=== PATIENT | female | born 1930 | race Caucasian/White ===

== ENCOUNTER 2017-12-23 14:24 | Observation (INO) ==
--- OUTSIDE RECORDS SUMMARY | 2017-12-23 16:07 | External Medical Summary ---
:1931 Author Organization e[employer] Care Team Providers Name Role Phone Bakari Prescott Provider Role Unavailable Allergies No Known Allergies Problems Problem Type Condition Code Onset Dates Condition Status Problem Hyperlipidemia, unspecified E78.5 Active Medications Medication Code System Code Instructions Start Date End Date Status Dosage Simvastatin [facility] [id number] 40 MG Orally Once 1 tablet in 5-10 a day the evening Results No Known Results Summary Purpose eClinicalWorks Submission
--- OUTSIDE RECORDS SUMMARY | 2017-12-23 16:07 | External Medical Summary ---
:1931 Author Organization [employer] Care Team Providers Name Role Phone Bakari Prescott Provider Role Unavailable Allergies No Known Allergies Problems Problem Type Condition Code Onset Dates Condition Status Problem Hyperlipidemia, unspecified E78.5 Active Medications No Known Medications Results No Known Results Summary Purpose eClinicalWorks Submission
--- OUTSIDE RECORDS SUMMARY | 2017-12-23 16:07 | External Medical Summary ---
:1930 Author Organization e[employer] Care Team Providers Name Role Phone Bakari Prescott Provider Role Unavailable Allergies No Known Allergies Problems Problem Type Condition Code Onset Dates Condition Status Problem Hyperlipidemia, unspecified E78.5 Active Problem Chronic obstructive pulmonary J44.9 Active disease, unspecified Medications Medication Code System Code Instructions Start Date End Date Status Dosage ProAir HFA [facility] [id number] 108 (90 Base) 2 puffs as 1-85 MCG/ACT needed Inhalation every 4 hrs Results No Known Results Summary Purpose eClinicalWorks Submission
--- NOTE | 2017-12-23 17:55 | Ultrasound Report ---
EXAM: US venous doppler LE BI HISTORY: bilateral lower extremity edema. COMPARISON: No prior studies available for comparison. Using duplex and color flow technology the deep venous system of the legs were evaluated throughout their length. No abnormal findings were demonstrated, specifically no intraluminal thrombus is seen. The deep venous system appears completely compressible throughout its length bilaterally. At the same time it shows the normal properties of spontaneous flow as well as augmentation. There is a Molina's cyst in the left popliteal fossa that measures 2.8 x 1.1 x 2.3 cm. IMPRESSION: 1. No duplex venous Doppler evidence of right or left lower extremity deep vein thrombosis. 2. Left popliteal fossa Omlina's cyst. .
[2017-12-23] MEDS ORDERED: --POM--Albuterol HFA 8 GM INHALER ORAL INH PRN (18:36)
--- NOTE | 2017-12-23 18:48 | History & Physical Report ---
History of Present Illness Date: 12/23/17 Chief complaint: falls, generalized weakness. HPI: patient is a pleasant 87yo female known to our clinic. 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 she is usually able to get herself up to go to the bathroom. she was in her usual state of health until about 1 to 2 weeks ago. at that time she started having an increase in generalized weakness. no focal weakness. it just became harder to support herself on her legs. she has had 3 falls over the last 10 days are so. they tend to follow the same pattern. she'll be getting up to go to the bathroom and her legs will feel weak. she'll slump and fall to the floor before being able to finish. she hasn't really impacted her head significantly. denies syncope, near-syncope, lightheadedness or other cardiac or neurologic symptoms as cause for this fall. she denies loss of consciousness. no residual head/ neck pain. no concussion or post-concussion symptoms. no new or changing numbness/tingling or focal weakness in any extremities or otherwise. no vision changes, ear pain, hearing changes, tinnitus, dizziness, orthostatic symptoms, syncope, near-syncope otherwise at all. no cranial nerve symptoms/deficits, dysphagia, aspiration. no blackouts. wasn't down for more than a couple seconds to couple minutes with each fall. she was seen in clinic today for this. her vital were stable and neurologic/musculoskeletal exam was non-acute. EKG in clinic today was effectively normal. they was no other focal medical cause from review of systems to explain her issues. she has residual mild to moderate pain over right anterior knee, right lower anterior cooper, some over the right lateral ankle and some over the superior foot as well but otherwise has no residual symptoms or issues from the fall other than as noted. no knee/ ankle/leg/foot swelling/redness or asymmetry bilaterally. she was admitted to [facility] for the falls and weakness under observation status. no fevers, chills, body aches, fatigue, ear pain, sinus pain, sore throat, runny nose. hasn't felt systemically unwell really. no vision changes, ear drainage, vertigo or tinnitus. no skin changes or new rashes. no fevers, chills, generalized body aches, chest pain, SOA, orthopnea, PND, new edema. she has chronic mild LE edema all the time but this isn't new and isn't acutely worse. no new or changing color changes to extremities from usual baseline. no palpitations, cough, sputum production, hemoptysis, unintentional weight loss , appetite changes, night sweats, constitutional symptoms, abdominal pain, GERD symptoms, nausea, vomiting, diarrhea, bloody/black stools, dysphagia, GI warning symptoms. patient denies homicidal/suicidal ideations. daughter does note that patient has been more irritable but patient/daughter both deny any other personality changes, mood changes, altered mentation, obtundation, confusion, changes in cognition. her short term memory isn't all that great per family but, per patient, this doesn't appear to be new or acutely worse. no dysuria, hematuria, urinary frequency, flank pain, nocturia, urinary/bowel incontinance, urinary retention. no photophobia, meningeal symptoms, encephalopathic symptoms as noted. no other boggy/inflammed/swollen focal joints or muscle groups. two daughters present for most of encounter today. no new issues otherwise at this time. Review of Systems - Constitutional Constitutional: Present: as per HPI - EENMT Eyes: Present: as per HPI Ears: Present: as per HPI Balance: Present: as per HPI Nose: Present: as per HPI Mouth/Throat: Present: as per HPI - Cardiovascular Cardiovascular: Present: as per HPI Vascular: Present: see HPI - Respiratory Respiratory: Present: as per HPI - Gastrointestinal Gastrointestinal: Present: as per HPI - Genitourinary Genitourinary: Present: as per HPI - Musculoskeletal Musculoskeletal: Present: as per HPI - Integumentary/Breasts Integumentary: Present: as per HPI - Neurological Neurological: Present: as per HPI - Psychiatric Psychiatric: Present: as per HPI - Endocrine Endocrine: Present: as per HPI - Hematologic/Lymphatic Hematologic/Lymphatic: Present: as per HPI - Allergic/Immunologic Allergic/Immunologic: Present: as per HPI Past Medical History Medical History Updates: -post-polio syndrome. -seasonal allergies. -frequent symptomatic PVC's. -COPD. -hyperlipidemia. -hypothyroid Surgical History: -thumb surgery. -breast surgery (not for cancer). -nose surgery. -appendectomy Family History: -mother and father both Family History Updates: see the above Family History: As Above - Social History Smoking status: Former smoker Social history: -former smoker but quit years ago. -no illicit substance use -no significant alcohol use -lives at home with daughter and she is her usual vocational services specialist. -retired. Medications Home Medications Medication Instructions Recorded Confirmed Type Albuterol HFA Inhaler [Ventolin 2 puff ORAL INH Q6H PRN 12/23/17 12/23/17 History Hfa 90 mcg/actuation] Flecainide [Tambocor] 50 mg PO Q12H 12/23/17 12/23/17 History Fluticasone/Salmeterol 250/50 1 puff INH BID PRN 12/23/17 12/23/17 History [Advair 250-50 Diskus] Levothyroxine Tab [Synthroid] 12.5 mcg PO ACB 12/23/17 12/23/17 History Simvastatin [Zocor] 40 mg PO HS 12/23/17 12/23/17 History Allergies Allergy/AdvReac Type Severity Reaction Status Date / Time rabbit dander Allergy Intermediate ALLERGIC Verified 12/23/17 16:46 CONTACT DERMATITIS aspirin AdvReac Intermediate VOMITING Verified 12/23/17 16:46 Mushrooms Allergy Intermediate HIVES Uncoded 12/23/17 16:46 Exam Vital Signs: Temperature 97.7 F 12/23/17 16:00 Pulse Rate 76 12/23/17 17:41 Respiratory Rate 16 12/23/17 16:00 Blood Pressure 126/49 12/23/17 16:00 Pulse Oximetry 91 12/23/17 16:00 Telemetry Rhythm: Sinus Rhythm (per EKG in clinic today. ) Height/Weight/BMI: Height 1.6 m Weight 50.3 kg Body Mass Index 19.6 - Constitutional Present: no acute distress, cooperative Comments: not combative, agitated, somnolent or obtunded either. - Routine HEENT Exam Head: Present: normocephalic, atraumatic Eye: Present: EOMI, PERRL ENT: Present: mucous membranes moist Comments: TM's clear b/l at this time. nares patent and avinash normal b/l at this time. no sinus pain to palpation b/l at this time. throat clear. no mastoid tenderness or skull/scalp tenderness b/l at this time. no clinical evidence of photophobia, encephalopathy, confusion, altered mentation, obtundation, delerium , psychosis, personality changes, meningitis at this time. affect and cognition unchanged from usual baseline. no nuchal rigidity. see the above and below. - Routine Neck Exam Present: supple Comments: no JVD. trachea midline. no lymphadenopathy in head/neck/supraclavicular area b/l at this time. see the above. - Routine Chest/Breast/Axilla Exam Comments: no chest wall tenderness at this time today. - Routine Respiratory Exam Comments: LCTAB. 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 moving air well. lung sounds heard in all lung cruz b/l at this time. no respiratory distress, retractions, accessory muscle use, stridor, airway compromise b/l at this time. - Routine Cardiovascular Exam Present: RRR Comments: no new murmurs. cardiac exam stable from previous. no new edema. legs are symmetrical and compartments soft b/l in LE's at this time. clinically no change in perfusion status in extremities X4 bilaterally. no boggy/inflammed/ swollen focal joints or muscle groups in extremities X4 and this includes knees/ ankles/feet bilaterally. no effusions in lower extremities joints, including knees bilaterally and no asymmetry either. right knee examined and stable to valgus/varus/anterior drawer/posterior drawer/compression/patella glide as compared to usual. mild palpable tenderness to pain over anterior aspect of knee/patella only. right ankle normal to anterior drawer/posterior/drawer/ inversion/eversion and achillies on right side in tact. mild pain over lower anterior tibia but no clinical evidence of compromise of syndesmosis between tibia/fibula on that side (right) to testing. mild foot pain over dorsal 3rd metatarsal. ROM right foot and toes at patient's usual baseline. perfusion status of RLE and foot stable from usual baseline as noted above. no step offs or deformities in RLE exam throughout at this time. pulses unchanged from usual baseline throughout RLE at this time. - Routine Abdominal Exam Present: soft, normoactive bowel sounds (X4.), non distended (X4.), non tender ( X4.) Comments: no rebound, guarding, rigidity. no ascites, jaundice or distension. - Routine Exam Comments: no tenderness over bladder areas. no clinical evidence of upper or lower UTI at this time. no new or changing back pain. - Routine Extremities Exam Comments: see above. - Routine Back/Spine/Pelvis Exam Comments: see the above. - Routine Skin Exam Present: intact Comments: no skin changes or issues from previous to uncovered areas. see the above. - Routine Neurological Exam Present: alert, oriented X3 CN2-12 as well as sensation/motor/muscle strength/DTR's unchanged from patient' s chronic and usual baseline b/l X4 extremities. pupillary exam unchanged from usual baseline as well. no clinical evidence of depression, anxiety, altered mentation, obtundation, confusion, encephalopathy, neck rigidity/pain, head pain , meningitis, photophobia, psychosis, delerium, personality changes at this time. denies homicidal/suicidal ideations. - Routine Psychiatric Exam Comments: see the above. Results - Labs CBC & Chem 7: 12/23/17 16:34 12/23/17 16:34 Assessment and Plan Assessment and Plan: generalized weakness and mechanical falls, likely secondary to post-polio syndrome and general debilitation. residual right lower leg, knee, ankle, foot pain from fall chronic venous insufficiency history of symptomatic PVC's HTN hyperlipidemia hypothyroid COPD -admit to outpatient/observation. start vitals with call parameters, oxygen as needed, telemetry, up with assist activity, cardiac diet, PT/OT/rehab consult. -cbc, cmp, tsh, UA, mg, phos, CK, troponin, BNP, urine culture now -cbc and cmp in the AM. -non contrast CT head, CXR, x-ray lower leg/ankle/foot on left, b/l LE venous dopplar u/s now. EKG in clinic as noted above in the HPI. -continue current synthroid, simvastatin, albuterol inhaler, advair BID inhaled, flecainide from home. -further management pending the above. all other chronic medical conditions stable and no other changes to plan of care at this time. ppx -hold on SCD's for now pending the above workup. if LE ultrasound/x-rays negative will start SCD's. given likely short length of stay on medical unit the use of pharmacologic DVT prophylaxis would likely yield more risk than benefit. if patient is to be here longer than expected then this is a consideration. -PO diet as above for GI prophylaxis. -FULL CODE. patient consulted on this today and she wants to be full code. -dispo heavily dependent on the above. DVT Prophylaxis: SCD's GI Prophylaxis: other (continue PO diet.) Resuscitation Status: Full Code - Time spent with patient Time with patient PN: 50 minutes Sepsis Assessment - Evaluation Severe Sepsis: none seen
[2017-12-23] MEDS ORDERED: DEXTROSE 50% SYRINGE 50ml (1 AMP) IVP PRN (18:49)
[2017-12-23] MEDS: FLECAINIDE 50 MG PO SCH (18:49)
[2017-12-23] MEDS ORDERED: GLUCOSE ORAL GEL 40% 37.5gm PO PRN (18:49)
[2017-12-23] MEDS ORDERED: INSULIN ASPART 100unit/ml INJECTION SQ PRN (18:49)
[2017-12-23] MEDS ORDERED: --POM--SIMVASTATIN 40 MG TABLET PO SCH (21:00)
[2017-12-23] MEDS ORDERED: NS 1,000 ML IV SCH (22:45)
[2017-12-24 00:05] VITALS: O2SAT 91
[2017-12-24] MEDS ORDERED: INHALER ASSIST DEVICE (Optichamber) MC ONE (04:24)
[2017-12-24] MEDS ORDERED: SALINE 0.65% NASAL SPRAY 44 ML BOTTLE EA NOSTRIL PRN (05:53)
[2017-12-24] MEDS: FLECAINIDE 50 MG PO SCH (06:12)
[2017-12-24] MEDS ORDERED: --POM--LEVOTHYROXINE 25 MCG TABLET PO SCH (06:30)
--- NOTE | 2017-12-24 09:35 | XRay Report ---
Indication: weakness PROCEDURE: XR chest 1V: Encounter: Initial Comparison: None. Findings: There is severe S-shaped scoliosis which is dextroconvex in the mid to lower thoracic spine. Heart size is normal. The lungs are clear. There is no focal opacity to suggest atelectasis or pneumonia. No mediastinal or hilar adenopathy. No pleural effusion. There is no significant tortuosity of the descending thoracic aorta. There is mild degenerative disc disease of the thoracic spine. IMPRESSION: No acute process. .
--- NOTE | 2017-12-24 09:36 | XRay Report ---
Indication: pain PROCEDURE: XR foot RT min 3V: Encounter: Initial Comparison: None. Findings: There is moderate osteophyte process of the foot with moderate diffuse cortical thinning. There are hammertoe deformities of the digits. The alignment appears otherwise well preserved. There is no definite periosteal reaction or bony lesion. There is no focal soft tissue swelling. There is no clear displaced fracture or bony destructive process. No dislocation or subluxation. No radiopaque foreign body. IMPRESSION: No definite bony destructive process. Nondisplaced fractures, not detectable on initial exams may become detectable after 7 to 10 days. A followup exam, MRI, or CT cross-sectional imaging might be a benefit if symptoms persist. .
--- NOTE | 2017-12-24 09:37 | XRay Report ---
Indication: pain PROCEDURE: XR ankle RT min 3V: Encounter: Initial Comparison: None. Findings: There is moderate diffuse cortical thinning compatible with osteoporosis. The alignment appears well preserved. There is no definite periosteal reaction or bony lesion. There is no focal soft tissue swelling. There is no clear displaced fracture or bony destructive process. No dislocation or subluxation. No radiopaque foreign body. IMPRESSION: No definite bony destructive process. .
--- NOTE | 2017-12-24 09:38 | XRay Report ---
Indication: pain, falls. PROCEDURE: XR tib/fib RT 2V: Encounter: Initial Comparison: None. Findings: There is moderate diffuse cortical thinning compatible with osteoporosis. The alignment appears well preserved. There is no definite periosteal reaction or bony lesion. There is no focal soft tissue swelling. There is no clear displaced fracture or bony destructive process. No dislocation or subluxation. No radiopaque foreign body. IMPRESSION: No definite bony destructive process. .
--- NOTE | 2017-12-24 09:39 | CT Scan Report ---
Indication: falls, PROCEDURE: CT head/brain wo con: Encounter: Initial Comparison: None. Findings: There is mild prominence of the ventricles and sulci compatible with cortical atrophy. There is no mass, mass effect, or midline shift. No evidence for intracranial hemorrhage. No intra or extra-axial fluid collections. No evidence for depressed skull fracture. The included portions of the sinuses are clear. IMPRESSION: Mild cortical atrophy. No evidence for acute cortical infarct, intracranial hemorrhage, or mass. .
--- NOTE | 2017-12-24 12:02 | XRay Report ---
Indication: knee pain. PROCEDURE: XR knee RT 3V: Encounter: Initial Comparison: None. Findings: Moderate osteopenia with cortical thinning. 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 The patella appears slightly elongated on the lateral view probably reform spurring. There is no definite effusion. There is no definite periosteal reaction or bony lesion. There is no focal soft tissue swelling. There is no clear displaced fracture or bony destructive process. No dislocation or subluxation. No radiopaque foreign body. IMPRESSION: No definite bony destructive process. .
--- NOTE | 2017-12-24 12:28 | Progress Note ---
- Date 12/24/17 Subjective: no acute issues overnight. no events called on telemetry. patient doing about the same. no acute issues. no changes in generalized weakness from admission. she's had no acute events overnight. no falls, trauma, injuries. no headaches, vision changes, ear pain, sinus pain, sore throat, runny nose. no dizziness, syncope, near-syncope. no skin changes or new rashes. no new or changing numbness/weakness/tingling in extremities b/l X4. right sided knee, cooper, ankle, foot pain unchanged from admission in pattern and distribution from previous. no new boggy/inflammed/swollen/painful focal joints or muscle groups. no hearing changes, cranial nerve symptoms, aspiration, dysphagia. appetite is ok. no night sweats. O2 sats dropped last night as noted and required some oxygen but she had no symptoms through this and this may be chronic. no focal neurologic deficits, seizure symptoms. no altered mentation , obtundation, confusion, depression symptoms, anxiety, manic symptoms, psychotic symptoms. no chest pain, SOA, orthopnea, PND, new edema, leg asymmetry, changes in exertional tolerance, palpitations, cough, sputum production, hemoptysis. no abdominal pain, GERD symptoms, nausea, vomiting, diarrhea, constipation, bloody/black stools, dysphagia, GI warning symptoms. no BM since admission but she's only been here overnight. no dysuria, hematuria , urinary frequency, flank pain, nocturia, urinary/bowel incontinance, urinary retention. no new issues otherwise at this time. Objective Vital signs: Temperature 98.7 F 12/24/17 08:00 Pulse Rate 65 12/24/17 08:00 Respiratory Rate 22 12/24/17 08:00 Blood Pressure 146/69 H 12/24/17 08:00 Pulse Oximetry 91 12/24/17 08:06 Rhythm: Normal Sinus Rhythm Height/Weight/BMI: Height 1.6 m Weight 51 kg Body Mass Index 19.6 - Constitutional Present: no acute distress, cooperative. Absent: diaphoretic, disheveled, combative, agitated, somnolent, obtunded - Routine HEENT Exam Head: Present: normocephalic, atraumatic Eye: Absent: periorbital swelling ENT: Present: mucous membranes moist Comments: patient does have mild left eyelid droop which is noted today. otherwise no changes from previous baseline. - Routine Respiratory Exam Present: CTA bilaterally. Absent: accessory muscle use, patient mechanically ventilated, dyspnea, decreased breath sounds, prolonged expiratory phase, rales , respiratory distress, rhonchi, stridor, wheezes, crackles, distant breath sounds, diminished air movement (as compared to usual baseline. ) Comments: lung sounds heard in all lung cruz b/l at this time. no respiratory distress , retractions, airway compromise, stridor b/l at this time. - Routine Cardiovascular Exam Present: RRR Comments: no new murmurs. no changes from previous to cardiac exam at this time. no new edema in LE's b/l at this time. legs symmetrical and compartments soft b/l in LE's at this time. clinically well perfused in all 4 extremities b/l at this time. no changes of patient's usual baseline perfusion status in extremities b/ l X4. no new or changing boggy/inflammed/swollen/painful joints or muscle groups from previous. no new asymmetry or swelling in lower extremity joints bilaterally. no changes in distribution of pain from last visit in right lower extremity from yesterday's exam. 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 - Routine Abdominal Exam Present: soft (X4.), normoactive bowel sounds (X4.), non distended (X4.), non tender (X4.). Absent: tenderness (X4.), distended (X4.), rebound, guarding, firm, rigid, organomegaly Comments: no ascites, jaundice, distension at this time. - Routine Exam Comments: no clinical evidence of upper or lower UTI at this time. - Routine Extremities Exam Comments: see the above. - Routine Back/Spine/Pelvis Exam Comments: see the above also. - Routine Skin Exam Present: intact Comments: no skin changes or issues as compared to usual baseline. - Routine Neurological Exam Present: alert, oriented X3 cranial nerves unchanged from previous baseline. sensation/motor/muscle strength/DTR's unchanged from usual baseline in extremities bilaterally X4. no clinical evidence of depression, anxiety, altered mentation, obtundation, confusion, psychosis, delerium, paloma, encephalopathy, photophobia, meningitis at this time. no changes from previous baseline. - Routine Lymphatic Exam Lymphatic: Absent: lymphedema - Routine Psychiatric Exam Present: normal affect, normal thought process (for patient.), cooperative. Absent: auditory hallucinations, visual hallucinations, tactile hallucinations, agitated, paranoid Comments: see the above. 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 residual right lower leg, knee, ankle, foot contusions from falls. group C strep lower urinary tract infection mild clinical dehydration, resolved. eyelid droop non-specific elevation in fasting blood sugar mild night-time hypoxia, possibly chronic. chronic venous insufficiency history of symptomatic PVC's HTN hyperlipidemia hypothyroid COPD -continue outpatient/observation, vitals with call parameters, oxygen as needed, telemetry. make activity up with assist. continue cardiac diet, PT/OT/ rehab consult. patient clinically stable. overnight oximetry tonight. given patient's weakness and falls, we will treat the above as a UTI. -cbc's unremarkable. cmp's with sugar of 218 on admission and otherwise unremarkable. sugars and GLUBS otherwise in low 100's. TSH normal as are mg and phos. CK, troponin unremarkable. UA generally unremarkable but following urine culture. CT head, x-rays of right leg, CXR unremarkable. did x -ray right knee also and this was unremarkable. b/l LE venous dopplar u/s unremarkable also. CRP normal from yesterday. see previous notes from this stay for other testing and results. -urine culture pending. -cbc, cmp, myasthaniafollowing GLUBS as well. -continue current synthroid, simvastatin, albuterol inhaler, advair BID inhaled, flecainide from home. was on NS at 40ml/hr but have discontinued now as patient euvolemic at this time. continue novolog s/s and hypoglycemia protocol as well. start keflex PO. -further management pending the above. all other chronic medical conditions stable and no other changes to plan of care at this time. ppx -SCD's started for DVT ppx. given likely short length of stay any pharmacologic DVT prophylaxis would likely hold more risk than benefits. this may change if patient is to be here longer. -continue PO diet as above for GI prophylaxis. -FULL CODE. -dispo awaiting PT/OT/rehab team input. patient likely would make a strong candidate for inpatient rehab. if not we will see what skilled care can offer. DVT Prophylaxis: SCD's GI Prophylaxis: other (PO diet.) Resuscitation Status: Full Code - Time spent with patient Time with patient PN: 25 minutes Sepsis Assessment - Evaluation Severe Sepsis: none seen
[2017-12-24 13:40] VITALS: BMI 19.9
[2017-12-24 15:54] VITALS: BP 148/66; PULSE 70; RESP 20; TEMP 98.6
--- NOTE | 2017-12-25 09:04 | Discharge Summary ---
ATTENDING PHYSICIAN Dr. Prescott of [facility] ADMITTING PHYSICIAN Dr. Prescott of [facility] CONSULTING PROVIDERS None ANCILLARY SERVICES The rehab unit was consulted as were physical therapy and occupational therapy. Patient is discharged to Inpatient Rehab Unit at [facility] in stable and good condition. DISCHARGE MEDICATIONS 1. Albuterol HFA inhaler, 90 mcg, two puffs orally inhaled q.6h. p.r.n. shortness of air. 2. Keflex 500 mg p.o. q.12h. 3. D50W 10-20 mL IV as needed for low blood sugars. Please see protocol for further instructions. 4. Flecainide 50 mg p.o. q.12h. 5. Advair 250/50, one puff inhaled b.i.d. 6. Glucose oral gel 40%, 37.5 g orally as needed for low blood sugars. Please see protocol for further instructions. 7. NovoLog sliding scale at low dose. Please see protocol for further instructions. 8. Synthroid 12.5 mcg p.o. daily. 9. Simvastatin 40 mg p.o. q.h.s. 10. Nasal saline spray, 2 sprays each nostril every 6 hours as needed for congestion. DISCHARGE DIET ADA ([employer]) and cardiac diet. ACTIVITY Up with assist only. PAIN Patient is told if any new pain or issues occur she will let us know right away. WOUND CARE Patient instructed that if any of her IV sites become red, swollen, painful then she will let us know right away. ADDITIONAL INSTRUCTIONS 1. To nursing. Nursing is given expressed orders to please discontinue all lines, IVs and telemetry the patient didn't come in on before discharge. They were instructed to call Dr. Thornton of the rehab team to see if he wants to keep these before doing this. 2. Patient was told that if any issues worsen and/or new ones occur, she would be seen immediately. 3. I did recommend to the rehab unit that they consult me on the rehab side for medical management. EXPECTED SIGNS/SYMPTOMS Patient was told that the generalized weakness should improve. NOTIFY PHYSICIAN/RETURN TO CARE ORDERS 1. Patient instructed to return to care immediately if any weakness and/or falls occur. 2. Numbers were given to contact Dr. Prescott after and during business hours. 3. Any pending labs will be followed up with provider. 4. [employer] phone line. This is not applicable as the patient does not use tobacco products. FOLLOWUP 1. The patient will follow up with Dr. Prescott as per discharge from the Inpatient Rehab Unit. This has yet to be determined. PERTINENT VITAL SIGNS DURING THIS STAY The patient did have a have a brief episode of oxygen saturations dropping into the 80s overnight and at sleep. This came up with 2 liters of oxygen. She was on room air the rest of the time while here. This was asymptomatic. Otherwise the patient was afebrile. Telemetry was normal sinus rhythm and generally unremarkable with normal rates. Respirations were normal and blood pressures were generally nonacute. PHYSICAL EXAM FINDINGS WHILE HERE The patient has a mild left eyelid droop but no other evidence from history or physical exam of an obvious neuromuscular junction disorder. Her lung exam was normal and she is expanding air well. Her neurological exam to cranial nerves and in extremities bilaterally x4 are generally at her baseline. She has no focal deficits. Her cognition is at her usual baseline. Cardiovascular exam is stable as well and at her usual baseline. PERTINENT LABORATORY DONE DURING THE STAY The patient had two complete CBCs while here, both of which were generally normal. As far as the chemistry goes, the patient's sodiums, potassiums and chlorides were normal while here. The patient's carbon dioxide was 35-36 which is chronic from her chronic COPD. Kidney function was unremarkable while here. This was generally normal. Blood sugar on admission was 218. It was generally in the low 100s for the rest of her stay. Liver functions tests were normal throughout. Magnesium, phosphorus , calcium were normal while here. Troponin and C-reactive protein on admission were normal as was the patient's brain natriuretic peptide. TSH was normal on admission. Serum protein studies on her complete metabolic panel were unremarkable on admission as well. Urinalysis on admission was notable for some leukocyte esterase, white blood cells and some bacteria. Urine culture did grow out Group C Streptococcus which in some cases can be an infecting pathogen and was thus treated with Keflex. PERTINENT IMAGING WHILE HERE 1. The patient did have an EKG done in the clinic on the day of admission which was effectively normal. 2. The patient had right knee, tibia, fibula, foot, ankle x-rays this stay which were unremarkable. 3. Patient's CT of the head without contrast on admission was normal. 4. Chest x-ray done on admission was nonacute and generally unremarkable. 5. Bilateral venous Doppler ultrasound was unremarkable and without evidence of a blood clot on admission. DISCHARGE DIAGNOSES 1. 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 2. Residual right lower leg, knee, ankle, foot contusions from falls. 3. Group C strep lower urinary tract infection. 4. Mild clinical dehydration which is resolved. 5. Left eyelid droop. 6. Nonspecific elevation in fasting blood sugar. 7. Mild nighttime hypoxemia, this is possibly chronic. 8. Chronic venous insufficiency. 9. History of symptomatic preventricular contractions. 10. Seasonal allergies. 11. Hypothyroidism. 12. COPD with restrictive lung disease on top of this from the patient's postpolio syndrome and chronic kyphosis. HISTORY OF PRESENT ILLNESS AND HOSPITAL COURSE This is a pleasant 87-year-old female known to our clinic. She is generally wheelchair-bound and has a history of postpolio syndrome. She is usually able to get herself up to the bathroom but this changed starting about 1-2 weeks previous to admission. At that time she started having an increase in generalized weakness but this was most pronounced in the proximal lower extremities in the quadriceps compartment. She just felt like her legs would not hold her up. She had had upwards of three falls over the 10 days previous to admission which tended to follow a similar pattern. She would be trying to get up and go to the bathroom. Her legs would feel weak and they would give out from under her. She didn't impact her head altogether too significantly. She denied syncope, near syncope, lightheadedness, other cardiac symptoms, neurologic symptoms as the cause of the fall. This appeared to be purely mechanical. She denied any loss of consciousness or residual head/neck pain. The only residual pain and discomfort were in the right lower extremity, most specifically the right knee, cooper, ankle, foot. Please see the admission history and physical as well as progress notes for further details on this. There were no issues from an orthopedic, neurovascular or musculoskeletal standpoint in the right lower extremity or residual from this fall otherwise. The patient was otherwise without any issue from this fall. She was seen in clinic on the day of admission and it was opted to admit her for observation. Please see above for the extensive imaging and laboratory evaluation undertaken as is noted above. The patient did have what appears to be something of a urinary tract infection and this has been treated with Keflex. It is a little too early to see if this has improved anything thus far but we will monitor. Physical therapy, occupational therapy and the rehab team were consulted and the patient was accepted to the Inpatient Rehab Unit on 12/24/2017. She was clinically stable throughout her couple of days on the acute side. Her weakness had yet to improve but had not worsened. She was otherwise neurologically and musculoskeletally intact. It was noted that she has something of a mild left eyelid droop without any other ocular issues or findings. She says she has had this on and off before at various times. As noted her other neurologic exams were unremarkable, but we will be working up as we go forward for a neuromuscular junction issue. Currently the patient is stable as she makes her way to the Inpatient Rehab side. The likely cause of the patient's issues are a gradual general debilitation on top of her chronic postpolio syndrome. We will await the workup as noted, though. In regards to the patient's recent residual right lower extremity pain from the fall, x-rays were unremarkable. There was no swelling or asymmetry or decrease in function/range of motion from this. We will continue to monitor this and she will work with physical therapy as noted above. The patient was mildly dehydrated on admission. She did benefit from a low flow of normal saline on admission. The patient did have a blood sugar 218 on admission. She was put on a NovoLog sliding scale and given hypoglycemia protocol as needed. Blood sugars were checked before meals and before bed. These generally were in the low 100s throughout the rest of her stay. We had the we will watch this on the Inpatient Rehab side as well. In regards to the patient's chronic venous insufficiency, she has had a pretty complete recent vascular workup including arterial Dopplers as an outpatient which were unremarkable. Venous Dopplers were unremarkable while here. This was stable while here and probably as a general result of her chronic postpolio syndrome. The patient does have a history of hypertension. This was generally stable while here and will be watched on the Inpatient Rehab side. The patient does have a history of hypothyroidism. The TSH was normal while here and she was maintained on her current Synthroid. The patient does have a history of COPD as well as some restrictive lung issues from her chronic kyphosis as well as postpolio syndrome. Her breathing was symptomatically normal for her while here. She did have a desaturation into the 80s as noted above. This is likely chronic, but it is hard to say. There are certainly no acute symptoms in regards to her breathing and I would suspect this is from her chronic baseline lung issues. We were to do an overnight oximetry tonight but the patient was accepted to the Inpatient Rehab Unit. We will likely do this before the patient is discharged from the Inpatient Rehab Unit though. We will continue to follow with vitals per joseph protocol. All other chronic medical conditions stable and no other changes to plan of care at this time. The patient was on SCDs for DVT prophylaxis while here. Given the short length of stay, it was considered that any pharmacological DVT prophylaxis would likely hold more risks than benefits. The patient was maintained on an oral diet for GI prophylaxis while here. The patient was a FULL CODE while here. This was per her wishes and she was consulted on the details of and indications for cardiopulmonary resuscitation. DISPOSITION Discharge to Inpatient Rehab now in stable and good condition. ELTON
== END 2017-12-24 17:30 ==
LOC: MED
PROVIDERS: ADMIT Internal Medicine; ATTEND Internal Medicine

== ENCOUNTER 2017-12-24 17:30 | Inpatient (IN) ==
--- OUTSIDE RECORDS SUMMARY | 2017-12-24 17:47 | External Medical Summary ---
:1930 Author Organization eClinicalWorks Care Team Providers Name Role Phone Bakari Prescott Provider Role Unavailable Allergies No Known Allergies Problems Problem Type Condition Code Onset Dates Condition Status Problem Hyperlipidemia, unspecified E78.5 Active Problem Chronic obstructive pulmonary J44.9 Active disease, unspecified Medications Medication Code System Code Instructions Start Date End Date Status Dosage ProAir HFA [facility] 11083-883 108 (90 Base) 2 puffs as 1-85 MCG/ACT needed Inhalation every 4 hrs Results No Known Results Summary Purpose eClinicalWorks Submission
--- OUTSIDE RECORDS SUMMARY | 2017-12-24 17:47 | External Medical Summary ---
:1931 Author Organization e[employer] Care Team Providers Name Role Phone Bakari Prescott Provider Role Unavailable Allergies No Known Allergies Problems Problem Type Condition Code Onset Dates Condition Status Problem Hyperlipidemia, unspecified E78.5 Active Medications Medication Code System Code Instructions Start Date End Date Status Dosage Simvastatin [facility] [address]9725-032 40 MG Orally Once 1 tablet in 5-10 a day the evening Results No Known Results Summary Purpose eClinicalWorks Submission
[2017-12-24] MEDS ORDERED: SALINE 0.65% NASAL SPRAY 44 ML BOTTLE EA NOSTRIL PRN (18:17)
[2017-12-24] MEDS ORDERED: INSULIN ASPART 100unit/ml INJECTION SQ PRN (18:17)
[2017-12-24] MEDS ORDERED: GLUCOSE ORAL GEL 40% 37.5gm PO PRN (18:17)
[2017-12-24] MEDS ORDERED: DEXTROSE 50% SYRINGE 50ml (1 AMP) IVP PRN (18:17)
[2017-12-24] MEDS ORDERED: FLECAINIDE 50 MG TABLET PO SCH (18:45)
--- NOTE | 2017-12-24 19:30 | IRU History & Physical Report ---
[facility] Date: Date: 12/24/17 Time: 1918 Chief complaint: I'm weak and fell HPI: Ms. Alford is a very pleasant 87 yo female referred by Dr. Bakari Prescott who is also her primary care physician. She was directly admitted from the clinic to the acute part of the hospital as an outpatient observation. She had reported multiple falls and generalized weakness with onset in the last week or two. She apparently is generally wheelchair-bound due to long-standing post polio effects. She uses an electric wheelchair for ambulation but is able to transfer from bed to chair. She has not been able to ambulate (walk) for some time. 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 She reports that she was in the "iron lung" for about 7 months and then went to a "polio home" for a time thereafter. She has had lower extremity weakness since that time. Her knees tend to be hyperextended. She states that she was in her usual health until about one or 2 weeks ago. At that time she developed increased generalized weakness and has had 2 or 3 falls over the last 10 days. Recently she has fallen, injuring the right lower extremity. She reports severe pain in the right ankle along with a lot of edema and ecchymoses. Radiograph of the right ankle has been negative. She reports pain rated at an 8 out of 10 in intensity. She denies any syncope, near syncope or head trauma. She denies any lightheadedness or chest pain. She was brought into the hospital as an outpatient for observation but has failed outpatient management. Chest radiograph and ankle films along with other blood tests were obtained. Patient did have a drop in her oxygen saturations to 87% on room air and requires supplemental oxygen which is a new finding for her. At times she is able to get by on room air. She is not aware of a diagnosis of COPD or emphysema but reports that she is more short of breath at the present time. In addition she does have a cough without sputum. Her dyspnea appears to be related to activity. At this time she is no longer able to be managed as an outpatient. In addition she was found to have a urinary tract infection with group C Streptococcus. She did have an elevated blood sugar as well over 200 around 4 PM in the afternoon. Her blood sugars have been monitored since that time and she has a sliding insulin scale available. She does not have history of diabetes prior to this. Her home situation is that she lives with her [id number] and son in their home. Both son and juhpyjgi-[id number]-sac work and travel and the patient does require a high degree of independence in order to return to her home. She apparently also has some type of home health assistance coming in a couple of times weekly. Prior level of functioning is as follows: She ambulated in a motorized wheelchair. She was able to transfer to bed and chair. She was modified independent for eating, minimum assistance level for grooming, bathing and upper body dressing. She was independent for lower body dressing. She was modified independent level for toileting, bed/chair/wheelchair transfers and toilet transfers. The patient is chronically unable to walk. Current level of functioning is as follows: She currently is independent for eating but requires moderate assistance for grooming and upper body dressing. She requires maximum assistance for lower body dressing. She requires total assistance for bed/chair/wheelchair transfers. She continues to be unable to walk. She complains of severe pain in the right lower extremity, particularly involving the right ankle and foot. There is significant edema and ecchymosis in that area. She demonstrates significant hyperextension of both knees during transfer. The following medical conditions are noted and require active monitoring and/or management: 1. Generalized debilitation after multiple falls at home 2. Urinary tract infection, new diagnosis, on antibiotic therapy 3. Acute hypoxemic respiratory failure with need for close monitoring and supplemental oxygen as needed to keep saturations above 90%. 4. Elevated blood sugar without prior history of diabetes mellitus The following therapies will be needed: 1. Physical therapy: For transfers and strengthening. 2. Occupational therapy: To improve ADLs and transfers 3. Medical management: For the above conditions 4. 24-hour rehabilitation nursing to monitor and address the following: Close monitoring of blood sugars, oxygen saturations and provision of supplemental oxygen as needed. She will need close monitoring to ensure no evidence of worsening of her UTI. She will need close 24-hour nursing monitoring to reduce her fall risk. [facility] Patient Stated Medical History Cataracts Yes: both Other HEENT Yes: ringing of RT ear Heart Murmur Yes Other Cardiology Yes: valve that sticks Bronchitis Yes: past Pneumonia Yes: past X3 times Other Respiratory Yes: HX of polio affected lungs Other Musculoskeletal Yes: arthritis Medical History Updates: -post-polio syndrome. -seasonal allergies. -frequent symptomatic PVC's. -COPD. -hyperlipidemia. -hypothyroid Surgical History: -thumb surgery. -breast surgery (not for cancer). -nose surgery. -appendectomy Family History: Patient's father with alcohol-related liver disease. Mother experienced sudden in her late 30's. Two brothers are . Family History Updates: see the above - Social History Smoking status: Former smoker Packs per day: 1 Packs-years: 30 (Pt smoked from ages 20 to 50 approx.) Alcohol intake: never Alcohol intake frequency: does not drink Housing: house Household members: family Current occupational status: retired Current residence: Apartment/Private Home Social history: Ms. Alford is retired and lives with her son and daughter in law. She has lived in [place] and [place] prior. Her several years ago. Review of Systems - Constitutional Constitutional: Present: anorexia (Reports that her appetite is reduced. ), fatigue, weakness. Absent: chills, fever(s), headache(s), lethargy, malaise, night sweats, weight gain, weight loss - EENMT Eyes: Absent: blurry vision, change in vision, diplopia Mouth/Throat: Absent: changes in swallowing, painful swallowing, change in taste , bleeding gums, change in voice - Cardiovascular Cardiovascular: Present: dyspnea on exertion. Absent: chest pain, palpitations , syncope, orthopnea, edema, cyanosis, heart murmur Rhythm: Present: regular rhythm Vascular: Absent: intermittent claudication, pedal edema, unilateral swelling - Respiratory Respiratory: Present: cough, dyspnea. Absent: hemoptysis, dyspnea on exertion, wheezing, pain on inspiration, chest congestion, excessive phlegm production - Gastrointestinal Gastrointestinal: Present: constipation (sluggish stools per patient). Absent: abdominal pain, change in bowel habits, diarrhea, dyspepsia, dysphagia, early satiety, hematochezia, melena, nausea, vomiting - Musculoskeletal Musculoskeletal: Present: deformity (severe kyphoscoliosis). Absent: abnormal gait, arthralgias, back pain, joint swelling, limited range of motion, muscle weakness - Integumentary/Breasts Integumentary: Absent: alopecia, erythema, lesions, pruritus, rash, jaundice - Neurological Neurological: Present: frequent falls. Absent: abnormal gait, abnormal movements, abnormal speech, confusion, convulsions, dizziness, focal weakness, headache(s), loss of vision, memory loss, numbness, paresthesias, tremor(s) Neurological Comments: Unable to walk. - Psychiatric Psychiatric: Absent: abnormal sleep pattern, anxiety, depression - Endocrine Endocrine: Absent: cold intolerance, flushing, heat intolerance, palpitations - Hematologic/Lymphatic Hematologic/Lymphatic: Absent: easy bleeding, easy bruising, lymphadenopathy - Allergic/Immunologic Allergic/Immunologic: Absent: urticaria Medications Home Medications Medication Instructions Recorded Confirmed Type Albuterol HFA Inhaler [Ventolin 2 puff ORAL INH Q6H PRN 12/23/17 12/24/17 History Hfa 90 mcg/actuation] Flecainide [Tambocor] 50 mg PO Q12H 12/23/17 12/24/17 History Fluticasone/Salmeterol 250/50 1 puff INH BID PRN 12/23/17 12/24/17 History [Advair 250-50 Diskus] Levothyroxine Tab [Synthroid] 12.5 mcg PO ACB 12/23/17 12/24/17 History Simvastatin [Zocor] 40 mg PO HS 12/23/17 12/24/17 History CephALEXin [Keflex 500 mg] 500 mg PO Q12HR cap 12/24/17 Rx Dextrose 50% Pfs [D50%W] 10 - 20 ml IVP PRN PRN syringe 12/24/17 Rx Glucose Oral Gel 40% [Glutose 15] 37.5 gm PO PRN PRN tube 12/24/17 Rx Insulin Aspart [NovoLOG] 1 - 5 unit SQ SS PRN vial 12/24/17 Rx Sodium Chloride [Deep Sea] 2 spray EA NOSTRIL Q6HR PRN spray 12/24/17 Rx Allergies Allergy/AdvReac Type Severity Reaction Status Date / Time rabbit dander Allergy Intermediate ALLERGIC Verified 12/23/17 16:46 CONTACT DERMATITIS aspirin AdvReac Intermediate VOMITING Verified 12/23/17 16:46 Mushrooms Allergy Intermediate HIVES Uncoded 12/23/17 16:46 Results IRU - Labs Labs: I have reviewed the inpatient record. Exam - Constitutional Present: moderate distress (re: right lower leg pain, swelling and bruising.), well nourished, well developed, thin, cooperative - Routine HEENT Exam Head: Present: normocephalic, atraumatic. Absent: cushingoid faces, abrasion, laceration, hematoma Eye: Present: EOMI, PERRL (Pupils are very tiny and equal. ). Absent: conjunctival icterus, scleral injection, periorbital swelling, nystagmus ENT: Present: mucous membranes moist, oropharynx clear. Absent: dentition normal (Patient is edentulous. Has only upper dentures which fit. ) - Routine Neck Exam Present: supple, full ROM, trachea midline. Absent: lymphadenopathy, thyromegaly, tenderness, swelling - Routine Chest/Breast/Axilla Exam Chest wall: Absent: tenderness, mass Axillae: Absent: lymphadenopathy, mass - Routine Respiratory Exam Present: decreased breath sounds, CTA bilaterally. Absent: accessory muscle use , prolonged expiratory phase, rales, respiratory distress, rhonchi, stridor, wheezes, crackles, distant breath sounds - Routine Cardiovascular Exam Present: RRR, S1, S2, no murmur. Absent: gallop, S3, S4, click, irregular rhythm - Routine Abdominal Exam Present: soft, normoactive bowel sounds, non distended, non tender. Absent: rebound, guarding, firm, rigid, organomegaly, mass, hernia, wound - Routine Extremities Exam Present: no edema, non tender, pulses intact, normal capillary refill. Absent: cyanosis, clubbing Comments: Right lower leg with edema and ecchymoses. Hyper-extended knees bilat. - Routine Back/Spine/Pelvis Exam Back/Spine: Present: scoliosis, kyphosis (Severe kypho-scoliosis) - Routine Skin Exam Present: intact, dry, warm, ecchymosis (right ankle and foot). Absent: cyanosis , erythema, pallor, mottling, petechiae, urticaria, lesions, jaundice - Routine Neurological Exam Present: alert, oriented X3, CN II-XII intact, motor deficit (lower extremities) , normal speech - Routine Psychiatric Exam Present: normal affect, normal thought process, cooperative, good insight, good judgment. Absent: depressed, anxious Sepsis Assessment - Evaluation Severe Sepsis: none seen IRU A/P (1) Debility Current visit: Yes Status: Acute Patient has developed acute debilitation over the past week or 2. She will require a multidisciplinary effort with physical therapy and occupational therapy with medical supervision to allow her to return to her home safely. (2) UTI (urinary tract infection) Qualifiers: Urinary tract infection type: acute cystitis Hematuria presence: without hematuria Qualified Code(s): N30.00 - Acute cystitis without hematuria Current visit: Yes Status: Acute (3) Acute hypoxemic respiratory failure Current visit: Yes Status: Acute Etiology of her hypoxemia is unclear but likely related to chronic lung disease in addition to restrictive lung disease from her severe kyphoscoliosis and history of polio. She'll require close monitoring of her saturations and provision of supplemental oxygen as needed. (4) Elevated random blood glucose level Current visit: Yes Status: Acute Resuscitation Status: Full Code - Course Hospital Course: Sp Thornton MD: - Interventions to Obtain Goals Goals Progress/Modifications: Patient has acute on chronic debilitation. She has underlying postpolio syndrome with lower extremity weakness. However she has experienced a new onset of worsening debilitation over the past couple of weeks which may be related to her chronic lung disease versus UTI etc. Physical therapy and occupational therapy along with medical supervision will be provided.
--- NOTE | 2017-12-24 20:22 | Consult Note ---
Consult Information - Data of Consult Consult date: 12/24/17 Requesting Physician: Sp Thornton MD Primary Care Provider: Bakari Prescott, DO - Consult Narrative Reason for consult: night time hypoxemia, elevated blood sugars, falls, weakness History of present illness: patient is a pleasant 87yo female known to our clinic. she has a known history of post-polio syndrome. she was recently admitted to [facility] under observation status for a series of falls and generalized weakness over the last week or so. she has undergone and extensive workup for the last 24 hours which has yielded some evidence of a UTI but was otherwise unremarkable. I'll refer you to those notes and records for details on this in our EMR for further details. she has been clinically stable since her arrival to our hospital and it's generally too early to tell if her weakness will improve as she's only been here about 24 hours. she's had no other focal issues or changes otherwise. vitals have been stable. the patient was accepted to the IRU today for further therapies to improve strength and stamina. no fevers, chills, body aches, fatigue, weakness, ear pain, sinus pain, sore throat, runny nose, skin changes, new rashes, dizziness, syncope, near-syncope. no falls, trauma, injuries since she's been here. no changes in lower extremity and overall generalized weakness since admission. no vision changes. she's had mild noticeable left eyelid droop without other symptoms of a neuromuscular disorder other than as noted. no face droop/numbness/weakness/ tingling. no dysphagia or aspiration. no cranial never symptoms or deficits. no new or changing numbness/weakness/tingling anywhere. no recent travel, camping, sick exposures. lower extremity generally far more effected than upper extremities and proximal muscles more involved than distal ones. no new or changing boggy/inflammed/swollen focal joints or muscle groups. see progress note from today for other residual discomfort from falls this week and it should be noted these are unchanged from previous. no chest pain. no new or changing SOA. no orthopnea, vertigo, falls, trauma, injuries, body aches, fatigue, palpitations, cough, sputum production, hemoptysis. no seizure symptoms. no loss of consciousness. for other details surrounding falls and weakness please see progress note from today and H & P from yesterday. no abdominal pain, GERD symptoms, nausea, vomiting, diarrhea, constipation, bloody/ black stools, hematemesis, coffee ground emesis, melena, BRBPR, constipation, diarrhea, bloody/black stools, dysuria, hematuria, urinary frequecy, flank pain , nocturia, urinary/bowel incontinance, urianry retention, obtundation, confusion, psychosis, homicidal/suicidal ideations, delerium. of note, patient had episode of mild night-time hypoxemia this AM which may be chronic. she had no symptoms with this and this may be chronic but it is hard to say for sure. Past Medical History Medical History Updates: -post-polio syndrome. -seasonal allergies. -frequent symptomatic PVC's. -COPD. -hyperlipidemia. -hypothyroid Surgical History: -thumb surgery. -breast surgery (not for cancer). -nose surgery. -appendectomy Family History Updates: -mother and father both . Family History: As Above - Social History Smoking status: Former smoker Current residence: Apartment/Private Home Social history: -former smoker but quit years ago. -lives at home with daughter who is primary lead advisor. -no significant alcohol use -no illicit substance use -retired Review of Systems - Constitutional Constitutional: Present: as per HPI - EENMT Eyes: Present: as per HPI Ears: Present: as per HPI Balance: Present: as per HPI Nose: Present: as per HPI Mouth/Throat: Present: as per HPI - Cardiovascular Cardiovascular: Present: as per HPI Vascular: Present: see HPI - Respiratory Respiratory: Present: as per HPI - Gastrointestinal Gastrointestinal: Present: as per HPI - Genitourinary Menstruation: as per HPI - Musculoskeletal Musculoskeletal: Present: as per HPI - Integumentary/Breasts Integumentary: Present: as per HPI - Neurological Neurological: Present: as per HPI - Psychiatric Psychiatric: Present: as per HPI - Endocrine Endocrine: Present: as per HPI - Hematologic/Lymphatic Hematologic/Lymphatic: Present: as per HPI - Allergic/Immunologic Allergic/Immunologic: Present: as per HPI Medications Home Medications Medication Instructions Recorded Confirmed Type Albuterol HFA Inhaler [Ventolin 2 puff ORAL INH Q6H PRN 12/23/17 12/24/17 History Hfa 90 mcg/actuation] Flecainide [Tambocor] 50 mg PO Q12H 04/11/18 04/12/18 History Fluticasone/Salmeterol 250/50 1 puff INH BID PRN 12/23/17 12/24/17 History [Advair 250-50 Diskus] Levothyroxine Tab [Synthroid] 12.5 mcg PO ACB 12/23/17 12/24/17 History Simvastatin [Zocor] 40 mg PO HS 12/23/17 12/24/17 History CephALEXin [Keflex 500 mg] 500 mg PO Q12HR cap 12/24/17 Rx Dextrose 50% Pfs [D50%W] 10 - 20 ml IVP PRN PRN syringe 12/24/17 Rx Glucose Oral Gel 40% [Glutose 15] 37.5 gm PO PRN PRN tube 12/24/17 Rx Insulin Aspart [NovoLOG] 1 - 5 unit SQ SS PRN vial 12/24/17 Rx Sodium Chloride [Deep Sea] 2 spray EA NOSTRIL Q6HR PRN spray 12/24/17 Rx Allergies Allergy/AdvReac Type Severity Reaction Status Date / Time rabbit dander Allergy Intermediate ALLERGIC Verified 12/23/17 16:46 CONTACT DERMATITIS aspirin AdvReac Intermediate VOMITING Verified 12/23/17 16:46 Mushrooms Allergy Intermediate HIVES Uncoded 12/23/17 16:46 Exam Telemetry Rhythm: Sinus Rhythm (earlier today on telemetry on acute side.) - Constitutional Present: no acute distress, cooperative Comments: not combative, agitated, somnolent or obtunded. see other progress note from acute side from today. - Routine HEENT Exam Head: Present: normocephalic, atraumatic ENT: Present: mucous membranes moist Comments: see other progress note from acute side from today. - Routine Neck Exam Present: supple Comments: no JVD. no thyromegally to palpation. no neck rigidity. no clinical evidence of photophobia, paloma, depression, anxiety, altered mentation, obtundation, confusion, personality changes, encephalopathy, meningitis at this time. - Routine Chest/Breast/Axilla Exam Comments: no chest wall tenderness. - Routine Respiratory Exam Comments: LCTAB. no CWR. moving air at patient's usual baseline. lung sounds heard in all lung cruz b/l at htis time. no respiratory distress, retractions, accessory muscle use, stridor, airway compromise b/l at this time. - Routine Cardiovascular Exam Present: RRR Comments: no new murmurs. no new edema in LE's b/l at this time. clinically her perfused status is unchanged from usual baseline in all 4 extremities b/l at this time. new new color changes in extremities b/l X5. no boggy/inflammed/ swollen focal joints or muscle groups in extremities b/l X4. no swelling/ inflammation to areas noted in last progress note from acute side in right lower extremity at this time (see H and P from yesterday as well as progress note from today for details as is is outlined there). - Routine Abdominal Exam Present: soft (X4.), normoactive bowel sounds (X4.), non distended (X4.), non tender (X4.) Comments: no rebound, guarding, rigidity. no organomegally. no ascites, jaundice, distension. - Routine Exam Comments: no tenderness over bladder area. - Routine Extremities Exam Comments: see the above. no changes from progress note from acute side from earlier today. - Routine Back/Spine/Pelvis Exam Comments: no back pain. - Routine Skin Exam Present: intact Comments: no skin changes from previous to uncovered areas. - Routine Neurological Exam Present: alert, oriented X3 cranial nerves unchanged from previous baseline. sensation/motor/muscle strength/DTR's unchanged from usual baseline in extremities b/l X4. see progress note from today for commentary on left eyelid droop. no changes in pupillary exam from previous. see the above. - Routine Psychiatric Exam Present: normal affect, normal thought process, cooperative Comments: see the above. see progress note from acute side earlier today. Assessment and Plan Assessment and Plan: generalized weakness and mechanical falls, likely secondary to post-polio syndrome and general debilitation. residual right lower leg, knee, ankle, foot contusions from falls. group C strep lower urinary tract infection mild clinical dehydration, resolved. eyelid droop on left non-specific elevation in fasting blood sugar mild night-time hypoxia, possibly chronic. chronic venous insufficiency history of symptomatic PVC's seasonal allergies HTN hyperlipidemia hypothyroid COPD -PT/OT and other therapy orders as per primary. general admission orders per primary team (rehab). given patient's weakness and falls, we are treating the above as a UTI. will likely get overnight oximetry before discharge. -see notes and records from the last 2 days of patient's visit to the acute side for other testing and results from that stay. continue GLUBS. urine cx is resulting as noted above. -cbc, cmp, a1c, myasthania/[place] lambert panel in the AM. -continue current synthroid, simvastatin, albuterol inhaler, advair BID inhaled, flecainide, novolog s/s, hypoglycemia protocol, keflex PO (day 1), saline nasal spray. -further management pending the above. all other chronic medical conditions stable and no other changes to plan of care at this time. ppx -patient activity on this unit is such that it usually doesn't nescessitate pharmacologic DVT prophylaxis or SCD's for DVT prophylaxis but will defer this decision to primary team. -PO diet for GI prophylaxis. -FULL CODE. -dispo as per primary team. DVT Prophylaxis: other (per primary team.) GI Prophylaxis: other (continue PO diet.) Resuscitation Status: Full Code - Time spent with patient Time with patient PN: 25 minutes - Physician Narrative Narrative: Date: 12/24/17 Time: 1958 Sepsis Assessment - Evaluation Severe Sepsis: none seen
--- NOTE | 2017-12-24 20:44 | IRU 24Hr Post Admit Eval ---
24 Hr Post Admission Physical - Relevant Changes Relevant Changes: No Reviewed: I have reviewed the patient's information and concur with the finding and results of the pre-admission screen. Certification: I certify the patient for rehabilitation. - Patient Condition (1) Debility Status: Acute Code(s): R53.81 - Other malaise Classification: Present on IRF Admission, IRF Tx That Should Address Diagnosis, Diagnosis Requiring Medical Follow Up (2) Acute hypoxemic respiratory failure Status: Acute Code(s): J96.01 - Acute respiratory failure with hypoxia Classification: IRF Tx That Should Address Diagnosis, Diagnosis Requiring Medical Follow Up (3) Elevated random blood glucose level Status: Acute Code(s): R73.09 - Other abnormal glucose Classification: IRF Tx That Should Address Diagnosis, Diagnosis Requiring Medical Follow Up (4) UTI (urinary tract infection) Status: Acute Qualifiers: Urinary tract infection type: acute cystitis Hematuria presence: without hematuria Qualified Code(s): N30.00 - Acute cystitis without hematuria Code(s): N39.0 - Urinary tract infection, site not specified Classification: Present on IRF Admission, IRF Tx That Should Address Diagnosis, Diagnosis Requiring Medical Follow Up - Prior Functional Status Lives With: With Family Residence Type: Apartment/Private Home Assitive Devices: Motorized Wheelchair Prior Functional Status: Depend. at home or school, Depend. w/ IADL - Current Functional Status Current Level of Function: Current level of functioning is as follows: She currently is independent for eating but requires moderate assistance for grooming and upper body dressing. She requires maximum assistance for lower body dressing. She requires total assistance for bed/chair/wheelchair transfers. She continues to be unable to walk. She complains of severe pain in the right lower extremity, particularly involving the right ankle and foot. There is significant edema and ecchymosis in that area. She demonstrates significant hyperextension of both knees during transfer. Failed Alternative Therapy: Yes (Unable to be cared for as outpatient.) Patient Requirements: The patient requires oversight by rehabilitation physician to manage their rehabilitation treatment plan and multidisciplinary approach to care that can only be provided in an IRF and requires a multidisciplinary approach to care, provided by professional PTs, OTs, STs, dieticians, RTs, rehabilitation nurses and is not available in lesser levels of care. Limitations Req: Mobility Impairment, ADL Impairment Physical Therapy Minutes: 90 Occupational Therapy Minutes: 90 Therapy: The patient is to receive therapy at least 5 days a week. - Complications/Comorbidities Impact on Functional Outcomes: Her post-polio weakness will negatively impact her functional outcome. Barriers to Discharge: Weakness, Balance, Endurance, Pain Control - Plan to Avoid Complications Plan to Avoid Complications: The patient cannot receive this care in a lesser intensive setting such as Senior Living or Outpatient Therapy due to the patient requiring the following : ppatient requires close monitoring of oxygen saturations in view of recent diagnosis of hypoxemic respiratory failure. She requires close monitoring of her urinary tract infection to ensure no worsening infection. She requires blood sugar monitoring as well. She requires a multidisciplinary approach with physical therapy, occupational therapy and medical supervision in view of these medical problems.
[2017-12-24] MEDS: SIMVASTATIN 40 MG TABLET PO SCH (23:06)
[2017-12-24 23:47] VITALS: BMI 16.2
[2017-12-25] MEDS: LEVOTHYROXINE 25 MCG TABLET PO SCH (06:02)
[2017-12-25] MEDS: FLECAINIDE 50 MG TABLET PO SCH ×2 (08:32→20:04)
--- NOTE | 2017-12-25 11:16 | IRU Progress Note ---
- Subjective/Serverity of Illness Date: 12/25/17 Jessica was reassessed this morning in her room on acute inpatient rehabilitation. She states that she slept adequately last night. The patient states that there is discomfort in the right medial malleolus area only when the area is palpated. It is not present just at rest. She continues to have edema in the right lower extremity. She is just getting started with therapy. She does complain of some constipation and would like a stool softener. The following medical issues are identified and are addressed as follows: 1. Generalized debilitation after multiple falls at home. Getting started with therapy. 2. Urinary tract infection, new diagnosis, on antibiotic therapy. She remains on cephalexin. Does not have any new symptoms of fever, dysuria or frequency. She was up out however 3 times last night to urinate. 3. Acute hypoxemic respiratory failure with need for close monitoring and supplemental oxygen as needed to keep saturations above 90%. Saturations while on rehabilitation have been adequate. Management per primary care. 4. Elevated blood sugar without prior history of diabetes mellitus. Hemoglobin A1c minimally up at 5.8%. Fingerstick sugars themselves look good. Exam Vital Signs: Temperature 98.8 F 12/25/17 08:28 Pulse Rate 81 12/25/17 08:28 Respiratory Rate 18 12/25/17 08:28 Blood Pressure 135/66 12/25/17 08:28 Pulse Oximetry 93 12/25/17 08:28 Height/Weight/BMI: Height 1.6 m Weight 41.7 kg Body Mass Index 16.2 - Constitutional Present: mild distress (regarding the right ankle area.), well nourished, well developed, thin, cooperative - Routine HEENT Exam Eye: Present: EOMI, PERRL ENT: Present: mucous membranes moist, dentition normal Comments: Left eyelid somewhat ptotic. She says that she has had surgery on the right eyelid. - Routine Neck Exam Present: supple - Routine Respiratory Exam Present: CTA bilaterally. Absent: wheezes - Routine Cardiovascular Exam Present: RRR, S1, S2. Absent: murmur - Routine Abdominal Exam Present: soft, normoactive bowel sounds, non distended. Absent: tenderness - Routine Extremities Exam Present: edema (1+ edema right lower extremity.), normal capillary refill - Routine Skin Exam Present: dry, warm, ecchymosis (right lower extremity.) - Routine Neurological Exam Present: alert, oriented X3, CN II-XII intact - Routine Psychiatric Exam Present: normal affect, cooperative, depressed (somewhat flat affect.) Results IRU - Labs Labs: Have reviewed primary care consultation as well as lab results etc. IRU A/P (1) Debility Current visit: Yes Status: Acute Patient is substantially debilitated after her fall and injury to the right lower extremity. She has quite a bit of discomfort in the right lower extremity when the area is palpated. Radiograph was negative. She is getting started with therapy. (2) Acute hypoxemic respiratory failure Current visit: Yes Status: Acute Thus far she has been able to be maintained on room air while on rehabilitation. She had low saturations while on acute care. This likely is related to some chronic lung disease as well as restrictive lung disease with kyphoscoliosis. In addition previous polio no doubt plays a role. (3) Elevated random blood glucose level Current visit: Yes Status: Acute (4) UTI (urinary tract infection) Qualifiers: Urinary tract infection type: acute cystitis Hematuria presence: without hematuria Qualified Code(s): N30.00 - Acute cystitis without hematuria Current visit: Yes Status: Acute Tolerating cephalexin well. Up 3 times less than to urinate. DVT Prophylaxis: other (per primary team.) Resuscitation Status: Full Code - Course Hospital Course: Sp Thornton MD: 12/25/17 11:17 Patient is cooperative. No fever noted. Room air saturations adequate. Blood sugars look good at present. Just getting started with therapy. Would like a stool softener. - Interventions to Obtain Goals PT Treatment Plan: Functional Activities, Patient/Family Education, Therapeutic Exercise OT Treatment Plan: ADL (Basic Care), Balance Training, Pt./Family Education, Ther. Exercise for ADL Goals Progress/Modifications: Patient is settling into the rehabilitation routine. Stool softener will be provided for constipation/liquids stools. Right lower extremity remains puffy, ecchymotic and tender to palpate. Previous radiograph was unremarkable. Remains on cephalexin and tolerating well. No evidence of worsening infection at present. Blood sugars look good. A1c 5.8%.Please note that the patient's individual plan of care was developed and documented today, requiring review of therapy notes, medical conditions and anticipated functional recovery. This required additional medical decision making with regard to interaction of the patient's medical issues with the anticipated functional recovery. Please see separate document.
--- NOTE | 2017-12-25 11:22 | IRU Plan of Care ---
[facility] Overall Plan of Care - Date Date: 12/25/17 - Patient Impairments (1) Debility Code(s): R53.81 - Other malaise Status: Acute Classification: Present on IRF Admission, IRF Tx That Should Address Diagnosis, Diagnosis Requiring Medical Follow Up (2) Acute hypoxemic respiratory failure Code(s): J96.01 - Acute respiratory failure with hypoxia Status: Acute Classification: IRF Tx That Should Address Diagnosis, Diagnosis Requiring Medical Follow Up (3) Elevated random blood glucose level Code(s): R73.09 - Other abnormal glucose Status: Acute Classification: IRF Tx That Should Address Diagnosis, Diagnosis Requiring Medical Follow Up (4) UTI (urinary tract infection) Qualifiers: Urinary tract infection type: acute cystitis Hematuria presence: without hematuria Qualified Code(s): N30.00 - Acute cystitis without hematuria Code(s): N39.0 - Urinary tract infection, site not specified Status: Acute Classification: Present on IRF Admission, IRF Tx That Should Address Diagnosis, Diagnosis Requiring Medical Follow Up - Relevant Changes Relevant Changes: No Reviewed: I have reviewed the patient's information and concur with the finding and results of the pre-admission screen. Certification: I certify the patient for rehabilitation. - Medical Prognosis Medical Prognosis: Good Vital Signs: Last Vital Signs Temp 98.8 F 12/25/17 08:28 Pulse 81 12/25/17 08:28 Resp 18 12/25/17 08:28 BP 135/66 12/25/17 08:28 Pulse Ox 93 12/25/17 08:28 - Anticipated Interventions Anticipated Interventions: The patient requires inpatient IRF care for PT, OT, and/or ST for residuals remaining from multiple falls with severe debilitation resulting in muscular weakness and strength deficits. An individualized overall plan of care has been developed after careful review of the patient's preadmission screening, post admission physician evaluation and assessments of all therapy disciplines and/ or other pertinent clinicians involved in treating the patient. This indicates medical necessity and rehabilitation necessity have been established through a thorough review of all available medical information. Strength Deficits: Right Lower Extremity, Left Lower Extremity - Current Functional Status Failed Alternative Therapy: Yes (patient was not able to be cared for as an outpatient.) Patient Requires: The patient requires oversight by rehabilitation physician to manage their rehabilitation treatment plan and multidisciplinary approach to care that can only be provided in an IRF and requires a multidisciplinary approach to care, provided by professional PTs, OTs, STs, rehabilitation nurses, and may require STs, dieticians, and RTS. This is not available in lesser levels of care. Physical Therapy Minutes: 90 Occupational Therapy Minutes: 90 Therapy: The patient is to receive therapy at least 5 days a week. - Anticipated LOS/Outcomes Anticipated Functional Outcome: It is anticipated the patient will be able to return to her home environment, able to transfer from bed to chair, utilize the electric wheelchair safely and provide most of her ADLs. She will require continued assistance with IADLs.Expected functional improvements include: -- Modified independant to independant ambulation with assistive device ( electric wheelchair) -- Modified independant to independant ADL's with or without assistive device -- Return to pre-morbid level of mobility -- Maximize level of mobility and ADL's to decrease burden on any caregiver involved with this patient's care Anticipated Length of Stay (days): 7 Anticipated DC Destination: Home, Self Care, Home Health Service Home Safety Plan: The patient will be provided with the development of a Home Safety Plan for return to a home or home-like environment and and to ensure safety post discharge. - Plan to Avoid Complications Barriers to Attaining Goals: Weakness, Endurance Plan to Avoid Complications: The patient cannot receive this care in a lesser intensive setting such as [facility] or Outpatient Therapy due to the patient requiring the following : Patient has sustained multiple falls at home and has a result has significant worsening debility over the past 7-10 days. In addition she has developed a urinary tract infection which may have played a role in her debility. She has experienced acute hypoxemic respiratory failure requiring close monitoring of her oxygen saturations, vital signs and evidence of worsening infection. She requires 24-hour rehabilitation nursing with medical supervision along with skilled PT and OT to return her to her previous level of functioning.
--- NOTE | 2017-12-25 11:45 | Progress Note ---
- Date 12/25/17 Subjective: no acute events overnight. patient doing well. worked well with therapies yet. no new changes in strength either way yet but it is early. no new or changing numbness/weakness/tingling anywhere. no headaches, stroke symptoms, new focal neurologic deficits, skin changes, new rashes, dizziness, syncope, near-syncope. no falls, trauma, injuries, URI symptoms, sinus issues. no fatigue. no changes in pattern of weakness from admission. no chest pain. no new or changing SOA. no orthopnea, PND, new edema, leg asymmetry, changes in exertional tolerance from usual baseline. no palpitations. no cough, sputum production, hemoptysis. no new or changing boggy/inflammed/swollen focal joints or muscle groups. no changes from previous baseline in regards to pain in right knee, right cooper, right ankle, right foot and I'll direct you to admission H and P from the acute side from a few days ago as this hasn't changed no new swelling or asymmetry of these areas to the contralateral side. no abdominal pain, nausea, vomiting, diarrhea, bloody/black stools, hematemesis, coffee ground emesis, melena, BRBPR. appetite is stable and she's been eating/drinking well. no obtundation, confusion, altered mentation, depression, anxiety, other mood changes. when asked she notes she hasn't had a bowel movement since admission thursday of this week and she's getting a bit concerned. no other abdominal symptoms/changes with this. no dysuria, hematuria, flank pain, nocturia, urinary/bowel incontinance, urinary retention, polyuria, oliguria, other urinary symptoms/changes. no new issues at all otherwise at this time. Objective Vital signs: Temperature 98.8 F 12/25/17 08:28 Pulse Rate 81 12/25/17 08:28 Respiratory Rate 18 12/25/17 08:28 Blood Pressure 135/66 12/25/17 08:28 Pulse Oximetry 93 12/25/17 08:28 Height/Weight/BMI: Height 1.6 m Weight 41.7 kg Body Mass Index 16.2 - Constitutional Present: no acute distress, cooperative. Absent: diaphoretic, disheveled, combative, agitated, somnolent, obtunded - Routine HEENT Exam Head: Present: normocephalic, atraumatic Eye: Absent: periorbital ecchymosis, periorbital swelling ENT: Present: mucous membranes moist - Routine Respiratory Exam Present: CTA bilaterally. Absent: accessory muscle use, patient mechanically ventilated, dyspnea, decreased breath sounds, prolonged expiratory phase, rales , respiratory distress, rhonchi, stridor, wheezes, crackles, distant breath sounds, diminished air movement Comments: lung sounds heard in all lung cruz b/l at this time. all findings above bilateral unless otherwise noted. - Routine Cardiovascular Exam Present: RRR Comments: no new murmurs. no new edema in extremities b/l X4 from usual baseline. no color changes or changes in perfusion status in extremities b/l X4. no boggy/ inflammed/swollen focal joints or muscle groups. no changes from previous orthopedically in right knee/lower leg/ankle/foot. no new swelling or edema in the previous areas mentioned before that were giving her issues after the fall. compartments soft b/l in LE's at this time. - Routine Abdominal Exam Present: soft (X4.), normoactive bowel sounds (X4.), non distended (X4.), non tender (X4.). Absent: tenderness (X4.), distended (X4.), rebound, guarding, firm, rigid, organomegaly, mass Comments: no ascites, jaundice, distension. - Routine Exam Comments: no tenderness over bladder area. no clinical evidence of upper UTI at this time. - Routine Extremities Exam Comments: see the above. no changes from usual baseline. - Routine Back/Spine/Pelvis Exam Comments: see the above. - Routine Skin Exam Present: intact Comments: no skin changes to uncovered areas as compared to previous baseline. - Routine Neurological Exam Present: alert, oriented X3 cranial nerves 2-12 in tact. sensation/motor/muscle strength/DTR's unchanged from previous baseline in all 4 extremities b/l at this time. affect and cognition at patient's usual baseline. no new or changing eyelid droop or pupillary changes b/l at this time as compared to previous exam. no clinical evidence of plaoma, depression, altered mentation, obtundation, psychosis, delerium, confusion, obtundation, personality changes, behavioral problems. - Routine Psychiatric Exam Comments: see the above. 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 residual right lower leg, knee, ankle, foot contusions from falls. group C strep lower urinary tract infection mild clinical dehydration, resolved. constipation eyelid droop on left non-specific elevation in fasting blood sugar mild night-time hypoxia, possibly chronic. chronic venous insufficiency history of symptomatic PVC's seasonal allergies HTN hyperlipidemia hypothyroid COPD -PT/OT and other therapy orders as per primary. general admission orders per primary team (rehab). will likely get overnight oximetry before discharge. patient stable at this time clinically. -please see previous notes and records for other testing and results from her stay stay. continue GLUBS. -cbc's generally stable and unremarkable from usual baseline. cmp's with mild increase in CO2 which we'll watch for now but is otherwise unremarkable. GLUBS generally unremarkable. a1C 5.8. -myasthania/[facility] lambert panel pending. will discontinue GLUBS as sugars have looked ok. will d/c novolog and hypoglycemia protocol as well. -continue current synthroid, simvastatin, albuterol inhaler, advair BID inhaled, flecainide, keflex PO (day 2), saline nasal spray. start colace prn for constipation. adding senna a consideration as well. -further management pending the above. all other chronic medical conditions stable and no other changes to plan of care at this time. ppx -patient activity on this unit is such that it usually doesn't necessitate pharmacologic DVT prophylaxis or SCD's for DVT prophylaxis but will defer this decision to primary team. -PO diet for GI prophylaxis. -FULL CODE. -dispo as per primary team. DVT Prophylaxis: other (as per primary team.) GI Prophylaxis: other (continue PO diet. ) Resuscitation Status: Full Code - Time spent with patient Time with patient PN: 25 minutes Sepsis Assessment - Evaluation Severe Sepsis: none seen
[2017-12-25] MEDS: DOCUSATE SODIUM 100 MG CAPSULE PO SCH (12:55)
[2017-12-25] MEDS: SIMVASTATIN 40 MG TABLET PO SCH (20:04)
[2017-12-26] MEDS: LEVOTHYROXINE 25 MCG TABLET PO SCH (07:07)
[2017-12-26] MEDS: DOCUSATE SODIUM 100 MG CAPSULE PO SCH (09:04)
[2017-12-26] MEDS: FLECAINIDE 50 MG TABLET PO SCH ×2 (09:05→20:21)
[2017-12-26] MEDS: SIMVASTATIN 40 MG TABLET PO SCH (20:21)
--- NOTE | 2017-12-26 20:21 | Progress Note ---
- Date 12/26/17 Subjective: overall patient at baseline but she's very frustrated that she's on thickened liquids at this time. apparently earlier today she had an episode of choking and gagging with water. patient notes this wasn't with water and that she just had some phlegm in her throat and was trying to clear it. nursing notes it more significant than that. appears to have lasted a few minutes and then resolved. has reportedly been doing ok and thickened intake since then. she states she's had this before, it's no big deal and we're over-reacting. she denies residual issues from this. no chest pain, SOA, orthopnea, PND, new edema , leg asymmetry, cough, sputum production, hemoptysis. states she doesn't feel a whole lot stronger right now in her legs than when she came in but maybe a little. no falls, trauma, injuries. no fatigue, weakness, ear pain, sinus pain , sore throat, syncope, dizziness, near-syncope, skin changes new rashes. right lower extremity knee/cooper/ankle/foot discomfort residual from fall is about the same as when she came in thursday of this week. no new or changing numbness/weakness/tingling/pain anywhere in extremities or otherwise as compared to previous. no vision changes. no other cranial nerve symptoms or deficits. no palpitations. no abdominal pain, GERD symptoms, nausea, vomiting , diarrhea, bloody/black stools, hematemesis, coffee ground emesis, melena, BRBPR. no new or changing boggy/inflammed/swollen focal joints or muscle groups. no mood changes. denies homicidal/suicidal ideations. no changes in cognition. no altered mentation, obtundation, confusion, delerium, psychosis, paloma. no dysuria, hematuria, flank pain, nocturia, urinary/bowel incontinance , urinary retention. patient denies urinary frequency to me but nursing notes she's up frequently to urinate. in speaking with patient about this it appears chronic. no new/changing focal neurologic deficits. no headaches, stroke symptoms or other neurologic changes. in speaking with nursing it's noted that patient does have episodes of oxygen desaturations with exertion which appear to come back up with rest. these go into the 80's generally. patient is otherwise asymptomatic with this and this predates the choking/gagging episode on water noted above earlier today. patient denies changes in appetite. still no bowel movement since admission. no new issues otherwise at this time. Objective Vital signs: Temperature 98.1 F 12/26/17 19:49 Pulse Rate 66 12/26/17 19:49 Respiratory Rate 20 12/26/17 20:03 Blood Pressure 128/56 12/26/17 19:49 Pulse Oximetry 92 12/26/17 19:49 Height/Weight/BMI: Height 1.6 m Weight 41.7 kg Body Mass Index 16.2 - Constitutional Present: no acute distress, cooperative. Absent: diaphoretic, disheveled, combative, agitated, somnolent, obtunded - Routine HEENT Exam Head: Present: normocephalic, atraumatic ENT: Present: mucous membranes moist Comments: no changes. - Routine Respiratory Exam Present: CTA bilaterally. Absent: accessory muscle use, patient mechanically ventilated, dyspnea, decreased breath sounds, prolonged expiratory phase, rales , respiratory distress, rhonchi, stridor, wheezes, crackles, distant breath sounds, diminished air movement Comments: moving air well. lung sounds heard in all lung cruz b/l at this time. all findings above bilateral unless otherwise noted. - Routine Cardiovascular Exam Present: RRR Comments: no new murmurs. no new edema. compartments soft b/l in extremities X4. no new swelling or asymmetry in right knee/cooper/ankle/foot and no changes in these areas from previous orthopedically. range of motion stable in all 4 extremities X4 b/l at this time as compared to previous. clinically no changes in perfusion status in all 4 extremities b/l at this time. no new or changing boggy/inflammed/swollen focal joints or muscle groups. no changes in cardiac exam otherwise from previous. - Routine Abdominal Exam Present: soft (X4.), normoactive bowel sounds (X4.), non distended (X4.), non tender (X4.). Absent: tenderness (X4.), distended (X4.), rebound, guarding, firm, rigid, organomegaly, mass Comments: no ascites, jaundice, distension. - Routine Exam Comments: no tenderness over bladder area. no clinical evidence of upper UTI at this time. - Routine Extremities Exam Comments: see above. no changes from previous. - Routine Back/Spine/Pelvis Exam Comments: see above as well. - Routine Skin Exam Present: intact Comments: no skin changes from previous to uncovered areas. - Routine Neurological Exam Present: alert, oriented X3 CN2-12 in tact to testing and no changes. sensation/motor/muscle strength/DTR' s unchanged from previous in all 4 extremities b/l at this time. lower extremity motor/muscle strength not changed from previous exam bilaterally. no clinical evidence of paloma, depression, anxiety, altered mentation, obtundation , confusion, psychosis, delerium at this time. affect and cognition unchanged from previous baseline. patient denies homicidal/suicidal ideations. eyelid's unchanged from previous exam bilaterally at this time. - Routine Psychiatric Exam Present: normal affect, normal thought process, cooperative. Absent: suicidal ideation, homicidal ideation, auditory hallucinations, visual hallucinations, tactile hallucinations, depressed, anxious, agitated, paranoid, manic Comments: see above as well. 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 residual right lower leg, knee, ankle, foot contusions from falls. dysphagia with water earlier today group C strep lower urinary tract infection mild clinical dehydration, resolved. 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 chronic venous insufficiency history of symptomatic PVC's seasonal allergies HTN hyperlipidemia hypothyroid COPD -PT/OT and other therapy orders as per primary. ST consulted. patient will continue thickened diet for now. other general admission orders per primary team (rehab). will likely get overnight oximetry before discharge. oxygenation overall has been stable and I suspect these mild desaturations with exertion/sleep are chronic. rest/exercise oximetry a consideration before discharge as well. no changes in respiratory/lung examination or oxygenation or respiratory status since event this AM but will monitor for clinical evidence of pneumonitis for which there is none right now. -please see previous notes and records for other testing and results from her stay stay. -cbc, cmp for the AM. barrium swallow evaluation ordered. -myasthania/[facility] lambert panel pending. -continue current synthroid, simvastatin, albuterol inhaler, advair BID inhaled, flecainide, keflex PO (day 3), saline nasal spray, colace prn. adding senna BID prn. -further management pending the above. all other chronic medical conditions stable and no other changes to plan of care at this time. ppx -patient activity on this unit is such that it usually doesn't necessitate pharmacologic DVT prophylaxis or SCD's for DVT prophylaxis but will defer this decision to primary team. -PO diet for GI prophylaxis. -FULL CODE. -dispo as per primary team. DVT Prophylaxis: other (per primary team.) GI Prophylaxis: other (continue PO diet.) Resuscitation Status: Full Code - Time spent with patient Time with patient PN: 25 minutes Sepsis Assessment - Evaluation Severe Sepsis: none seen
[2017-12-26] MEDS: SENNOSIDES 8.6 MG TABLET PO PRN (20:35)
[2017-12-26] MEDS ORDERED: HYDROCORTISONE 1% CREAM 28.35gm TOP PRN (22:31)
[2017-12-27] MEDS: LEVOTHYROXINE 25 MCG TABLET PO SCH (05:31)
[2017-12-27] MEDS: FLECAINIDE 50 MG TABLET PO SCH ×2 (09:38→22:56)
[2017-12-27] MEDS: DOCUSATE SODIUM 100 MG CAPSULE PO SCH (09:38)
--- NOTE | 2017-12-27 12:40 | Progress Note ---
- Date 12/27/17 Subjective: no issues since last visit. no changes. still frustrated with the face she's on thickened liquids. no changes in lower extremities strength bilaterally since last visit but hasn't had a whole lot of therapy since then. no new or changing numbness/weakness/tingling/pain in extremities b/l from previous. no vision changes. no changes in pain in right knee/cooper/ankle/foot from previous. no swelling in those areas. no falls, trauma, injuries since last visit. no headaches. no stroke symptoms. no new or changing focal neurologic deficits. no ear pain, sinus pain, sore throat. no runny nose. no dysphagia or aspiration events since last visit. patient notes that she's had some erythematous itchy papular lesions develop on her elbows medially on both sides and this is noted from history and on physical exam. gradual over the last few days. she's had these before and this is familiar to her. ROS and physical exam negative for pain at baseline/pain on palpation/weeping/drainage/fluctuance /pustulance/generalized rashes/nicholsky sign/crepitus/extending cellulitis/ purpura/clinical evidence of necrotizing process/mucous membrane involvement/ hand involvement/foot involvement/blisters/erosions/other associated skin lesions. she has a known history of psoriasis. no cardiac chest pain, SOA, orthopnea, PND, new edema. no palpitations, cough, sputum production, hemoptysis. no abdominal pain, GERD symptoms, nausea, vomiting, diarrhea, bloody/black stools. she has some occasional mild pain around arm pits and back /pectoral area from the belt they had to use to lift here but it clearly musculoskeletal, tender to touch, and resolves when they don't use the belt. no changes in range of motion of upper or lower extremities b/l. no radiation of this pain/discomfort and no worsening on exertion. no pain there right now. no BM still since admission but she has just started the senna. no hematemesis, coffee ground emesis. no mood changes or depression. no confusion , altered mentation, obtundation, delerium. no dysuria, hematuria, flank pain, nocturia, urinary/bowel incontinance, urinary retention, polyuria, oliguria. no new or changing urinary frequency. no new or changing joint pain or issues from chronic baseline. no acute events or issues noted overnight. vitals and oxygenation have been stable. no new issues otherwise at this time. Objective Vital signs: Temperature 97.6 F 12/27/17 07:19 Pulse Rate 86 12/27/17 07:19 Respiratory Rate 16 12/27/17 07:30 Blood Pressure 145/59 H 12/27/17 07:19 Pulse Oximetry 92 12/27/17 07:19 Height/Weight/BMI: Height 1.6 m Weight 41.7 kg Body Mass Index 16.2 - Constitutional Present: no acute distress, cooperative. Absent: diaphoretic, disheveled, combative, agitated, somnolent, obtunded - Routine HEENT Exam Head: Present: normocephalic, atraumatic ENT: Present: mucous membranes moist Comments: no changes. - Routine Respiratory Exam Present: CTA bilaterally. Absent: accessory muscle use, patient mechanically ventilated, dyspnea, decreased breath sounds, prolonged expiratory phase, rales , respiratory distress, rhonchi, stridor, wheezes, crackles, distant breath sounds, diminished air movement Comments: lung sounds heard in all lung cruz b/l at this time. moving air well. all findings above bilateral unless otherwise noted. - Routine Cardiovascular Exam Present: RRR Comments: no new murmur. no changes from previous in regards to cardiac exam. no new edema from previous. no new or changing boggy/inflammed/swollen focal joints or muscle groups. right lower extremity knee/cooper/ankle/foot exam unchanged from previous and no new edema/redness/swelling from previous. no changes in perfusion status in all 4 extremities b/l at this time as compared to previous. compartments soft b/l in extremities b/l X4 at this time. - Routine Abdominal Exam Present: soft (X4.), normoactive bowel sounds (X4.), non distended (X4.), non tender (X4.). Absent: tenderness (X4.), distended (X4.), rebound, guarding, firm, rigid, organomegaly, mass Comments: no ascites, jaundice, distension. - Routine Exam Comments: no tenderness over bladder area. no clinical evidence of upper UTI at this time. - Routine Extremities Exam Comments: see the above. - Routine Back/Spine/Pelvis Exam Comments: see the above as well. - Routine Skin Exam Present: intact Comments: see above HPI for other exam findings. otherwise no changes from previous to uncovered areas. - Routine Neurological Exam Present: alert, oriented X3 CN2-12 in tact to testing and no changes. sensation/motor/muscle strength/DTR' s unchanged from previous in all 4 extremities b/l at this time. lower extremity motor/muscle strength not changed from previous exam bilaterally. no clinical evidence of paloma, depression, anxiety, altered mentation, obtundation , confusion, psychosis, delirium at this time. affect and cognition unchanged from previous baseline. eyelid's unchanged from previous exam bilaterally at this time. - Routine Psychiatric Exam Present: normal affect, normal thought process, cooperative. Absent: suicidal ideation, homicidal ideation, auditory hallucinations, visual hallucinations, tactile hallucinations, depressed, anxious, agitated, paranoid, manic Comments: see the above. 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 residual right lower leg, knee, ankle, foot contusions from falls. dysphagia with water yesterday group C strep lower urinary tract infection musculoskeletal axilla and upper chest pain from belt used for lifting, resolved. constipation eyelid droop on left mild macrocytosis, new, unlikely of any clinical significance. 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 chronic venous insufficiency history of symptomatic PVC's psoriasis seasonal allergies HTN hyperlipidemia hypothyroid COPD -PT/OT/ST and other therapy orders as per primary. patient will continue thickened liquids for now. other general admission orders per primary team (rehab). will likely get overnight oximetry before discharge. rest/ exercise oximetry a consideration before discharge as well. pain under armpits and over upper chest noted above is well localized and tender to palpation when it occurs and from the belt they were using to pick patient up. this has resolved for now. no indication from history or physical exam this was cardiac and no further workup indicated at this time. -please see previous notes and records for other testing and results from her stay stay. cbc's with mild macrocytosis now which is non-specific and not likely of any clinical significance but will follow. otherwise cbc's unremarkable from previous baseline. cmp's generally stable from previous baseline. -myasthania/[facility] lambert panel pending. barrium swallow evaluation ordered. -continue current synthroid, simvastatin, albuterol inhaler, advair BID inhaled, flecainide, keflex PO (day 4), saline nasal spray, colace prn, senna prn. continue hydrocortisone cream added by primary team as well prn. -further management pending the above. all other chronic medical conditions stable and no other changes to plan of care at this time. ppx -patient activity on this unit is such that it usually doesn't necessitate pharmacologic DVT prophylaxis or SCD's for DVT prophylaxis but will defer this decision to primary team. -will continue PO diet as above for GI prophylaxis. -FULL CODE. -dispo as per primary team. DVT Prophylaxis: other (per primary team.) GI Prophylaxis: other (PO diet as above.) Resuscitation Status: Full Code - Time spent with patient Time with patient PN: 25 minutes Sepsis Assessment - Evaluation Severe Sepsis: none seen
[2017-12-27] MEDS: SENNOSIDES 8.6 MG TABLET PO PRN (13:04)
[2017-12-27] MEDS ORDERED: FLEET PHOSPHO - SODA ENEMA 133ml PR ONE (16:52)
[2017-12-27] MEDS: SIMVASTATIN 40 MG TABLET PO SCH (22:56)
[2017-12-28] MEDS: LEVOTHYROXINE 25 MCG TABLET PO SCH (07:09)
[2017-12-28] MEDS: DOCUSATE SODIUM 100 MG CAPSULE PO SCH (08:58)
[2017-12-28] MEDS: FLECAINIDE 50 MG TABLET PO SCH ×3 (08:58→21:21)
--- NOTE | 2017-12-28 10:59 | IRU Progress Note ---
- Subjective/Serverity of Illness Date: 12/28/17 Ms. Alford was interviewed and examined in her room on acute inpatient rehabilitation. Over the weekend, I was contacted by the nurse indicating the patient had had an episode of dysphagia with coughing and choking. There was concern that she was not able to tolerate thin liquids orally. The patient however states that she was sleeping and that she gagged on some saliva. Nevertheless, she was evaluated by Dr. Prescott. No other neurologic abnormalities were identified. He does have a myasthenia workup pending at the present time. The patient states that she has not had a problem with handling her secretions nor fluids previously although if she swallows "fast" she may have a problem she indicates. A modified barium swallow was done today with speech therapy present. She did better with thin liquids compared to thickened liquids per speech. She will remain on a chopped meat diet but with thin liquids. Patient is pleased with this outcome. Speech therapy will follow her 30 minutes daily for this week. She continues to be weak. She states she has difficulty with transfers from the bed to the chair. However upon review of the therapists notes, she is doing fairly well in this regard. Brief therapy update: For occupational therapy she is minimum assistance for bed /chair/wheelchair transfers. Sliding board transfers are minimum assistance to standby assistance. Physical therapy, they're working on trunk and core strengthening. Sliding board transfers are with total assistance however. Medical issues were actively monitoring and managing are as follows: 1. Generalized debilitation after multiple falls at home: Please see therapy update noted above. 2. Urinary tract infection, new diagnosis, on antibiotic therapy: She is tolerating the cephalexin without difficulty. No evidence of fever and her urination is unremarkable. 3. Acute hypoxemic respiratory failure with need for close monitoring and supplemental oxygen as needed to keep saturations above 90%. She has not required supplemental oxygen although her saturations have been borderline at around 90-91%. Likely she will need overnight oximetry prior to dismissal. 4. Elevated blood sugar without prior history of diabetes mellitus: Had a postprandial sugar of 171. A1c was essentially normal. Exam Vital Signs: Temperature 98.3 F 12/28/17 08:00 Pulse Rate 74 12/28/17 08:00 Respiratory Rate 14 12/28/17 08:00 Blood Pressure 103/59 12/28/17 08:00 Pulse Oximetry 90 12/28/17 08:00 Height/Weight/BMI: Height 1.6 m Weight 41.7 kg Body Mass Index 16.2 - Constitutional Present: no acute distress, well nourished, well developed, cooperative - Routine HEENT Exam Eye: Present: EOMI ENT: Present: mucous membranes moist, oropharynx clear Comments: Left eyelid somewhat ptotic. This was present upon admission. - Routine Neck Exam Present: supple - Routine Respiratory Exam Present: CTA bilaterally. Absent: wheezes - Routine Cardiovascular Exam Present: RRR, S1, S2, murmur - Routine Abdominal Exam Present: soft, normoactive bowel sounds, non distended. Absent: tenderness - Routine Extremities Exam Present: no edema, normal capillary refill Comments: Continues to have tenderness to palpation of her right lower extremity medial malleolus area and just above that. There is minimal redness but no worsening and the edema has improved. - Routine Skin Exam Present: dry, warm - Routine Neurological Exam Present: alert, oriented X3, CN II-XII intact - Routine Psychiatric Exam Present: normal affect, cooperative Results IRU - Labs Labs: Have reviewed modified barium swallow as well as other providers notes and chart data. IRU A/P (1) Debility Current visit: Yes Status: Acute Patient is making progress with therapy. She is cooperative. Working on trunk and core strengthening as well as sliding board transfers. (2) Acute hypoxemic respiratory failure Current visit: Yes Status: Acute Oxygen saturations are borderline at around 90%. She has not required supplemental oxygen however. 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 (3) Elevated random blood glucose level Current visit: Yes Status: Acute Postprandial sugar around 171 which is slightly elevated. (4) UTI (urinary tract infection) Qualifiers: Urinary tract infection type: acute cystitis Hematuria presence: without hematuria Qualified Code(s): N30.00 - Acute cystitis without hematuria Current visit: Yes Status: Acute DVT Prophylaxis: other (per primary team.) Resuscitation Status: Full Code - Course Hospital Course: Sp Thornton MD: 12/25/17 11:17 Patient is cooperative. No fever noted. Room air saturations adequate. Blood sugars look good at present. Just getting started with therapy. Would like a stool softener. 12/28/17 11:01 Episode of dysphagia noted. Modified barium swallow done with speech therapy present. Does better with thin then with thickened liquids. - Interventions to Obtain Goals PT Treatment Plan: Functional Activities, Patient/Family Education, Therapeutic Exercise OT Treatment Plan: ADL (Basic Care), Balance Training, Pt./Family Education, Ther. Exercise for ADL Goals Progress/Modifications: Patient cooperative with therapy. Working on sliding board transfers and core strengthening. Still some tenderness around the right medial malleolus but redness and ecchymoses are improving. Edema improved as well. Heart murmur unchanged. Tolerating cephalexin without difficulty and her sugars are reasonable. Continue working with patient. Nurses had contacted me over the weekend with an episode of dysphagia. Please see above discussion. Modified barium swallow done and reviewed and indicates adequate tolerance of thin liquids. Speech therapy will work with the patient 30 minutes daily for this week, 5 days. Physical therapy and occupational therapy will see the patient 75 minutes each, daily for 5 days.
--- NOTE | 2017-12-28 14:23 | Fluoroscopy Report ---
Indication:dysphagia Procedure:FL barium swallow modified MODIFIED BAR. SWALLOW STUDY: Videofluoroscopy was performed in conjunction with a automobile rental representative from speech pathology and a separate report and recommendations will be provided. Varying gradations of barium from thin to solid were administered. Tracheal penetration was noted with every consistency. There was no aspiration noted with any of the consistencies. Due to the patient's posture, no AP imaging was able to be obtained. Impression: Tracheal penetration with every consistency. No aspiration seen. Please see the speech pathology report for additional details and recommendations. Fluoroscopy dose: 4.37 mGy (Cumulative air kerma) Manny Lovett RPA/ANTONIO performed this under my direct supervision. .
--- NOTE | 2017-12-28 17:11 | Progress Note ---
- Date 12/28/17 Subjective: no acute events or issues overnight. after fleet enema yesterday patient had large bowel movement. had smaller bowel movement this AM as well. passing flatus normally. no changes from yesterday in lower extremity weakness. patient did do well with physical therapy today and is hoping her legs feel stronger soon. no swelling/redness/increased pain in right knee/ankle/cooper/ foot pain as compared to yesterday. no falls, trauma, injuries. no fatigue, weakness, ear pain, sinus pain, sore throat, aspiration events, dysphagia. she passed her swallow evaluation and is happy she has had her previous diet restarted. drinking water and coffee without issues today. no skin changes or new rashes. no new or changing numbness/weakness/tingling in extremities or otherwise. no new or changing boggy/inflammed/swollen focal joints or muscle groups. no cranial nerve symptoms or deficits. no chest pain, SOA, orthopnea, PND, new edema, changes in exertional tolerance, palpitations, obtundation, confusion, altered mentation, encephalopathy symptoms, photophobia, meningeal symptoms no dizziness, syncope or near-syncope. no abdominal pain, GERD symptoms, nausea, vomiting, diarrhea, constipation, bloody/black stools, hematemesis, coffee ground emesis, appetite issues, constitutional symptoms. has been eating and drinking well. no dysuria, hematuria, flank pain, nocturia , other urinary symptoms/changes. no new or changing urinary frequency. no polyuria or oliguria. no other urinary issues. no depression or mood changes. no new issues otherwise at this time. Objective Vital signs: Temperature 98.0 F 12/28/17 16:00 Pulse Rate 64 12/28/17 16:00 Respiratory Rate 14 12/28/17 16:00 Blood Pressure 110/65 12/28/17 16:00 Pulse Oximetry 92 12/28/17 16:00 Height/Weight/BMI: Height 1.6 m Weight 41.7 kg Body Mass Index 16.2 - Constitutional Present: no acute distress, cooperative. Absent: diaphoretic, disheveled, combative, agitated, somnolent, obtunded - Routine HEENT Exam Head: Present: normocephalic, atraumatic Eye: Present: EOMI, PERRL ENT: Present: mucous membranes moist Comments: no changes from previous. - Routine Respiratory Exam Present: CTA bilaterally. Absent: accessory muscle use, patient mechanically ventilated, dyspnea, decreased breath sounds, prolonged expiratory phase, rales , respiratory distress, rhonchi, stridor, wheezes, crackles, distant breath sounds, diminished air movement Comments: lung sounds heard in all lung cruz b/l at this time. all findings above bilateral unless otherwise noted. - Routine Cardiovascular Exam Present: RRR Comments: no new murmur. no changes from previous in regards to cardiac exam. no new edema from previous. no new or changing boggy/inflammed/swollen focal joints or muscle groups. right lower extremity knee/cooper/ankle/foot exam unchanged from previous and no new edema/redness/swelling from previous. no changes in perfusion status in all 4 extremities b/l at this time as compared to previous. compartments soft b/l in extremities b/l X4 at this time. - Routine Abdominal Exam Present: soft (X4.), normoactive bowel sounds (X4.), non distended (X4.), non tender (X4.). Absent: tenderness (X4.), distended (X4.), rebound, guarding, firm, rigid, organomegaly, mass Comments: no ascites, jaundice, distension. - Routine Exam Comments: no tenderness over bladder area. no clinical evidence of upper UTI at this time. - Routine Extremities Exam Comments: see the above. - Routine Back/Spine/Pelvis Exam Comments: see the above. no back pain. - Routine Skin Exam Present: intact Comments: no changes from previous to uncovered areas. - Routine Neurological Exam Present: alert, oriented X3 CN2-12 in tact to testing and no changes. sensation/motor/muscle strength/DTR' s unchanged from previous in all 4 extremities b/l at this time. lower extremity motor/muscle strength not changed from previous exam bilaterally. no clinical evidence of paloma, depression, anxiety, altered mentation, obtundation , confusion, psychosis, delirium at this time. affect and cognition unchanged from previous baseline. eyelid's unchanged from previous exam bilaterally at this time. - Routine Psychiatric Exam Present: normal affect, normal thought process (for patient.), cooperative. Absent: auditory hallucinations, visual hallucinations, tactile hallucinations, depressed, anxious, agitated, paranoid, manic Comments: see the above. 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 residual right lower leg, knee, ankle, foot contusions from falls. dysphagia with water yesterday group C strep lower urinary tract infection musculoskeletal axilla and upper chest pain from belt used for lifting, resolved. constipation eyelid droop on left mild macrocytosis, new, unlikely of any clinical significance. 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 chronic venous insufficiency history of symptomatic PVC's psoriasis seasonal allergies HTN hyperlipidemia hypothyroid COPD -PT/OT/ST and other therapy orders as per primary. diet as per speech therapy and primary. other general admission orders per primary team (rehab). will likely get overnight oximetry before discharge. rest/ exercise oximetry a consideration before discharge as well. -please see previous notes and records for other testing and results from her stay stay. barium swallow with some penitration to trachea but no leola aspiration. -cbc and cmp in the AM. -myasthenia gravis and [place] [facility] panel pending. -continue current synthroid, simvastatin, albuterol inhaler, advair BID inhaled, flecainide, keflex PO (day 5), saline nasal spray, colace prn, senna prn. continue hydrocortisone cream added by primary team as well prn. Fleet Enema X1 got good response yesterday. -further management pending the above. all other chronic medical conditions stable and no other changes to plan of care at this time. ppx -patient activity on this unit is such that it usually doesn't necessitate pharmacologic DVT prophylaxis but will defer this decision to primary team. patient reportedly refusing SCD's. -will continue PO diet as above for GI prophylaxis. -FULL CODE. -dispo as per primary team. DVT Prophylaxis: other (patient refuses SCD's. ) GI Prophylaxis: other (PO diet.) Resuscitation Status: Full Code - Time spent with patient Time with patient PN: 25 minutes Sepsis Assessment - Evaluation Severe Sepsis: none seen
[2017-12-28] MEDS: SENNOSIDES 8.6 MG TABLET PO PRN (19:58)
[2017-12-28] MEDS: SIMVASTATIN 40 MG TABLET PO SCH (19:59)
[2017-12-29] MEDS: LEVOTHYROXINE 25 MCG TABLET PO SCH (05:31)
[2017-12-29] MEDS: DOCUSATE SODIUM 100 MG CAPSULE PO SCH (08:12)
[2017-12-29] MEDS: FLECAINIDE 50 MG TABLET PO SCH ×2 (08:12→20:17)
--- NOTE | 2017-12-29 08:58 | Progress Note ---
- Date 12/29/17 Subjective: received call from nursing about oxygen saturations in high 80's. patient put on 1 liter and oxygenating at about 96 to 97% right now. she has had no changes in cardiorespiratory or other symptoms at all and she is quite annoyed about all the fuss. denies chest pain, SOA, orthopnea, PND, new edema, leg asymmetry, changes in exertional tolerance, palpitations. no cough or congestion. she's had, for many years, some drainage in the back of her throat and in her sinuses but this is chronic and not changed. it is not acutely worse at all or new. no ear pain, sinus pain, sore throat, runny nose, fatigue , weakness, falls, trauma, injuries, hearing changes, vertigo, dizziness, syncope, near-syncope. no palpitations. no skin changes from previous and no new rashes from previous. no abdominal pain, GERD symptoms, nausea, vomiting, diarrhea, constipation, bloody/black stools. she last had a bowel movement yesterday. passing flatus normally. no hematemesis, coffee ground emesis. pain in right knee/ankle/cooper/foot noted in previous notes from her falls has improved some. she notes not much in the way of significant strength changes in her legs but maybe some. she has been working with therapy well. no new or changing numbness/weakness/tingling anywhere. no new or changing boggy/ inflammed/swollen focal joints or muscle groups. no swelling or effusions in right lower extremity joints. no changes in her previous and chronic psoriasis from her previous notes (will direct you to those notes as this hasn't changed and no new associated symptoms or exam findings). no mood changes. denies depression symptoms. no aspiration or dysphagia symptoms. no cranial nerve symptoms or deficits. eating and drinking well. no appetite changes or other constitution symptoms. denies homicidal/suicidal ideations. no confusion, altered mentation, obtundation, confusion or other changes. no new issues otherwise at this time. Objective Vital signs: Temperature 97.7 F 12/29/17 08:00 Pulse Rate 61 12/29/17 08:00 Respiratory Rate 16 12/29/17 08:00 Blood Pressure 151/62 H 12/29/17 08:00 Pulse Oximetry 90 12/29/17 08:00 Height/Weight/BMI: Height 1.6 m Weight 41.7 kg Body Mass Index 16.2 - Constitutional Present: no acute distress, cooperative. Absent: diaphoretic, disheveled, combative, agitated, somnolent, obtunded - Routine HEENT Exam Head: Present: normocephalic, atraumatic Eye: Present: EOMI, PERRL ENT: Present: mucous membranes moist Comments: no changes from previous. - Routine Respiratory Exam Present: CTA bilaterally. Absent: accessory muscle use, patient mechanically ventilated, dyspnea, decreased breath sounds, prolonged expiratory phase, rales , respiratory distress, rhonchi, stridor, wheezes, crackles, distant breath sounds, diminished air movement (compared to chronic baseline. ) Comments: lung sounds heard in all lung cruz b/l at this time. all findings above bilateral unless is otherwise noted. - Routine Cardiovascular Exam Present: RRR. Absent: bradycardia, tachycardia, JVD Comments: no new murmurs. no changes from previous in regards to cardiac exam. no new edema from previous. no new or changing boggy/inflammed/swollen focal joints or muscle groups. right lower extremity knee/cooper/ankle/foot exam unchanged from previous and no new edema/redness/swelling from previous. no changes in perfusion status in all 4 extremities b/l at this time as compared to previous. compartments soft b/l in extremities b/l X4 at this time. - Routine Abdominal Exam Present: soft (X4.), normoactive bowel sounds (X4.), non distended (X4.), non tender (X4.). Absent: tenderness (X4.), distended (X4.), rebound, guarding, firm, rigid, organomegaly, mass Comments: no ascites, jaundice, distension. - Routine Exam Comments: no tenderness over bladder area. no clinical evidence of upper UTI at this time. - Routine Extremities Exam Comments: see the above as well. - Routine Back/Spine/Pelvis Exam Comments: see the above. - Routine Skin Exam Present: intact Comments: no skin changes from previous to uncovered areas. - Routine Neurological Exam Present: alert, oriented X3 CN2-12 in tact to testing and no changes. sensation/motor/muscle strength/DTR' s unchanged from previous in all 4 extremities b/l at this time. lower extremity motor/muscle strength not changed from previous exam bilaterally. no clinical evidence of paloma, depression, anxiety, altered mentation, obtundation , confusion, psychosis, delirium at this time. affect and cognition unchanged from previous baseline. eyelid's unchanged from previous exam bilaterally at this time. - Routine Psychiatric Exam Present: normal affect, normal thought process (for patient.), cooperative. Absent: suicidal ideation, homicidal ideation, auditory hallucinations, visual hallucinations, tactile hallucinations, depressed, anxious, agitated, paranoid, manic Comments: see the above also. 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 residual right lower leg, knee, ankle, foot contusions from falls. dysphagia with water yesterday group C strep lower urinary tract infection musculoskeletal axilla and upper chest pain from belt used for lifting, resolved. constipation eyelid droop on left mild macrocytosis, new, unlikely of any clinical significance. non-specific elevation in fasting blood sugar chronic venous insufficiency history of symptomatic PVC's psoriasis seasonal allergies HTN hyperlipidemia hypothyroid COPD -PT/OT/ST and other therapy orders as per primary. diet as per speech therapy and primary. other general admission orders per primary team (rehab). will likely get overnight oximetry before discharge. rest/ exercise oximetry a consideration before discharge as well. continue oxygen as needed. in speaking with patient, it sounds like the oxygen saturations that were marked in the high 80's were taken after the patient had just finished exerting herself (going to bathroom, finishing therapy, etc.). O2 sats currently in high 90's on 1 liter. given she has no changes in symptomatology or on physical exam in regards to her cardiorespiratory status I don't feel this represents an acute worsening and likely represents her chronic COPD as well as her chronic kyphosis/post-polio syndrome. would consider further workup if she continues to drop her saturations after weening. patient is known to drop her O2 sats into the 80's on exertion chronically and this appears no different. orders given to ween oxygen as noted to sats of 90% and also not take her O2 sats after any exertion. -please see previous notes and records for other testing and results from her stay stay. cbc's with mild microcytosis and otherwise unremarkable as compared to previous encounters. cmp's with mild elevation in fasting glucose and otherwise unremarkable. -myasthenia gravis and [place] panel pending. -continue current synthroid, simvastatin, albuterol inhaler, advair BID inhaled, flecainide, keflex PO (day 6), saline nasal spray, colace prn, senna prn. continue hydrocortisone cream added by primary team as well prn. mucinex added as patient has complained of consistent drainage on the order of years in the back of her throat and this is neither new or acutely worse. she denies any cough or chest congestion as noted above. will add some duonebs prn. -further management pending the above. all other chronic medical conditions stable and no other changes to plan of care at this time. ppx -patient activity on this unit is such that it usually doesn't necessitate pharmacologic DVT prophylaxis but will defer this decision to primary team. patient reportedly refusing SCD's. -will continue PO diet as above for GI prophylaxis. -FULL CODE. -dispo as per primary team. DVT Prophylaxis: other (patient refusing SCD's. ) GI Prophylaxis: other (continue PO diet. ) Resuscitation Status: Full Code - Time spent with patient Time with patient PN: 25 minutes Sepsis Assessment - Evaluation Severe Sepsis: none seen
--- NOTE | 2017-12-29 10:19 | IRU Progress Note ---
- Subjective/Serverity of Illness Date: 12/29/17 Jessica states that she has had no further difficulty with regard to swallowing. She is on thin liquids and tolerating them well. She denies any chest pain or shortness of breath. She is noted to have the trace of edema in the right lower extremity likely related to the recent trauma. However it is improved. With regard to therapy, she is working on sliding board transfers. She would prefer not to do that. She says that formerly she was able to stand pivot and transfer. However clearly a sliding board transfer would be safer for her. She is requiring maximum assistance for lower extremity dressing. She is improving and other areas such as toilet assist. Exam Vital Signs: Temperature 97.7 F 12/29/17 08:00 Pulse Rate 61 12/29/17 08:00 Respiratory Rate 22 12/29/17 08:55 Blood Pressure 151/62 H 12/29/17 08:00 Pulse Oximetry 90 12/29/17 08:00 Height/Weight/BMI: Height 1.6 m Weight 41.7 kg Body Mass Index 16.2 - Constitutional Present: no acute distress, well nourished, well developed, cooperative - Routine HEENT Exam Head: Present: normocephalic Eye: Present: EOMI ENT: Present: mucous membranes moist, oropharynx clear - Routine Respiratory Exam Present: CTA bilaterally. Absent: wheezes - Routine Cardiovascular Exam Present: RRR, S1, S2, murmur - Routine Abdominal Exam Present: soft, normoactive bowel sounds, non distended. Absent: tenderness - Routine Extremities Exam Present: normal capillary refill Comments: There is trace edema right lower extremity. It is improved. Ecchymoses have improved. - Routine Back/Spine/Pelvis Exam Back/Spine: Present: scoliosis, kyphosis - Routine Skin Exam Present: dry, warm - Routine Neurological Exam Present: alert, oriented X3, CN II-XII intact - Routine Psychiatric Exam Present: normal affect, cooperative IRU A/P (1) Debility Current visit: Yes Status: Acute She is making progress with therapy. Team meeting today around 1 PM in her room and I reminded her that she could have family or friends with her if she wishes. (2) Acute hypoxemic respiratory failure Current visit: Yes Status: Acute Saturations are reviewed and continued to run borderline at 90-91%. She has been able to maintain this however on room air. Anticipate overnight oximetry prior to dismissal. (3) Elevated random blood glucose level Current visit: Yes Status: Acute (4) UTI (urinary tract infection) Qualifiers: Urinary tract infection type: acute cystitis Hematuria presence: without hematuria Qualified Code(s): N30.00 - Acute cystitis without hematuria Current visit: Yes Status: Acute DVT Prophylaxis: other (patient refusing SCD's. ) Resuscitation Status: Full Code - Course Hospital Course: Sp Thornton MD: 12/25/17 11:17 Patient is cooperative. No fever noted. Room air saturations adequate. Blood sugars look good at present. Just getting started with therapy. Would like a stool softener. 12/28/17 11:01 Episode of dysphagia noted. Modified barium swallow done with speech therapy present. Does better with thin then with thickened liquids. 12/29/17 10:19 No further evidence of dysphagia. Tolerating thin liquids well. Cooperative with therapy. Working on sliding board transfers for safety. - Interventions to Obtain Goals PT Treatment Plan: Functional Activities, Patient/Family Education, Therapeutic Exercise OT Treatment Plan: ADL (Basic Care), Balance Training, Pt./Family Education, Ther. Exercise for ADL Goals Progress/Modifications: Patient states that at home she was doing stand, pivot and transfers. At the present time we are working on sliding board transfers for safety. Her swallowing is doing well. She says that she does not have much strength in the upper extremities to work with the sliding board. Nevertheless she has even less strength in the lower extremities and it is clearly safer for her to transfer with the sliding board if at all possible. She would like a stool softener every other day.
--- NOTE | 2017-12-29 13:27 | IRU Team Meeting ---
IRU Team Meeting - Nursing Bladder Assistive Devices Utilized:: Absorbent Pad Bladder Management Level of Assist: Modified Independent Bladder Frequency of Accidents: No accidents Number of Bladder Accidents: 1 Bowel Assistive Devices Utilized:: Medication, Absorbent Pad Bowel Management Level of Assist: Modified Independent Bowel Frequency of Accidents: No accidents Vital Signs: Vital Signs - 24 hr 12/28/17 16:00 12/28/17 20:47 12/28/17 21:05 Temperature 98.0 F 98.5 F Pulse Rate 64 71 Respiratory Rate 14 16 20 Blood Pressure 110/65 117/81 Pulse Oximetry 92 91 12/29/17 08:00 12/29/17 08:55 Temperature 97.7 F Pulse Rate 61 Respiratory Rate 16 22 Blood Pressure 151/62 H Pulse Oximetry 90 Current Medications: Albuterol Sulfate (Ventolin Hfa) 2 puff ORAL INH Q6H PRN PRN Reason: Shortness of air/wheezing Cephalexin HCl (Keflex 500 Mg) 500 mg PO Q12HR [facility] Last Admin: 12/29/17 08:12 Dose: 500 mg Docusate Sodium (Colace) 100 mg PO DAILY [facility] Last Admin: 12/29/17 08:12 Dose: 100 mg Flecainide Acetate (Tambocor) 50 mg PO BID [facility] Last Admin: 12/29/17 08:12 Dose: 50 mg Hydrocortisone (Cortizone-10 Cream) 1 applic TOP QID PRN Last Admin: 12/26/17 22:41 Dose: 1 applic Levothyroxine Sodium (Synthroid) 12.5 mcg PO ACB [facility] Last Admin: 12/29/17 05:31 Dose: 12.5 mcg Fluticasone/Salmeterol (Advair Diskus) 1 puff ORAL INH BID [facility] Last Admin: 12/29/17 09:10 Dose: 1 puff Senna (Senna Lax) 8.6 mg PO BID PRN PRN Reason: Constipation Last Admin: 12/28/17 19:58 Dose: 8.6 mg Simvastatin (Zocor) 40 mg PO HS [facility] Last Admin: 12/28/17 19:59 Dose: 40 mg Sodium Chloride (Deep Sea Nasal Moisturizing [place]) 2 spray EA NOSTRIL Q6HR PRN PRN Reason: Congestion Current Medical Issues: Generalized debilitation, UTI, borderline hypoxemia, post polio syndrome Comments: I certify that I personally led the interdisciplinary team meeting and agree with comments, barriers and goals indicated. Team meeting was held in the patient's room with the patient and the following family members present: patient's son, patient's daughter in law, patient's bath aide. Ms. Alford an episode of dysphagia over the weekend. She attributed this to awakening and gagging on her mucus. She often has difficulty with mucus collecting in the back of her throat when she lies down. Modified barium swallow was done and she is followed by speech therapy. Did well with thin liquids. Patient does have urinary tract infection and remains on cephalexin. - Dietary Patient is currently on a cardiac soft diet with chopped meat and thin liquids. However the patient indicates that she does not follow this at home. Supplements of mighty shakes twice daily are offered. Her BMI is quite low at 16. Additional snacks between meals will be offered. Patient wants to avoid large intakes at any one time because of reduced respiratory ability. - Speech Therapy She is followed by speech therapy. She is doing well with thin liquids. It is not clear if she is benefiting from a chopped diet and therefore we will change to regular diet. - Physical Therapy Bed, Chair, Wheelchair Transfer Assist: Stand By Assist/Supervision, 1 Person Assist Ambulation Ability: Patient Unsafe/Unable Wheelchair Propulsion Ability: Modified Independent Wheelchair Propulsion Distance: 150 Stair Climbing Ability: Patient Unsafe/Unable Car Transfer Ability: Stand By Assist/Supervision Comments: Physical therapy goal will be sliding board transfers are present within stand, pivot transfers. Patient does have hyperextension of the knees and lack of lower extremity active mobility resulting in lack of safety with stand, pivot transfers. She is demonstrating slight board transfers with set up assist. Continues to need additional strengthening with upper extremities in order to do this safely. - Occupational Therapy Eating Ability: Independent Grooming Ability: Independent Bathing Ability: Moderate Assistance Upper Body Dressing Ability: Stand By Assist/Supervision Lower Body Dressing Ability: Stand By Assist/Supervision Tub Transfer Assist: Minimal Assistance Toileting Assist: Minimal Assistance Toilet Transfer Assist: Minimal Assistance Comments: Continue efforts at ADLs are undertaken. She is learning new compensatory techniques for dressing and functional transfers. A concern for the patient is transferring from commode to and from power chair. Dressing and bathing of reportedly assisted by family and caregivers. - Goals Physical Therapy Goals: 12/29/17 goals: 1. Perform slideboard transfer modified Independent. Occupational Therapy Goals: OT goals 12/29/17: 1.) Transfer to toilet with slideboard with modified independence. 2.) Lower body dressing with modified independence. - Barriers to Discharge Barriers to Attaining Goals: Endurance (efforts to increase patient's activity tolerance are undertaken.), Other (safety awareness: Patient and caregiver training are provided to ensure safety with sliding board transfers.) - Care Plan Anticipated Length of Stay (days): 3 Anticipated DC Destination: Home, Self Care, Home Health Service I have led this team conference and agree with the plan. Interventions/Goals: Patient is making progress. Family will provide partial care for patient at home but continued efforts at safety in transfers and ADLs will be undertaken. Anticipate safe transition to home environment with home health by the end of the week.
[2017-12-29] MEDS: GUAIFENESIN 400MG TABLET PO SCH ×2 (15:06→20:18)
[2017-12-29] MEDS ORDERED: ALBUTEROL/IPRATROPIUM 2.5mg-0.5mg/3ml NEB AEROSOL PRN (19:09)
[2017-12-29] MEDS: SIMVASTATIN 40 MG TABLET PO SCH (20:17)
[2017-12-30] MEDS: LEVOTHYROXINE 25 MCG TABLET PO SCH (07:21)
[2017-12-30] MEDS: DOCUSATE SODIUM 100 MG CAPSULE PO SCH (09:26)
[2017-12-30] MEDS: GUAIFENESIN 400MG TABLET PO SCH ×3 (09:27→21:14)
[2017-12-30] MEDS: FLECAINIDE 50 MG TABLET PO SCH ×2 (09:27→21:14)
--- NOTE | 2017-12-30 09:37 | XRay Report ---
INDICATION: decreased O2 PROCEDURE: CHEST 2-VIEWS UPRIGHT (PA & LAT) Encounter: Initial COMPARISON: December 23, 2017 FINDINGS: Lungs are hyperinflated. There is mild airspace opacity in the right lower lobe. Possible trace right effusion. No pneumothorax. Heart size and mediastinal contours are stable. Pulmonary vascularity appears normal. Severe scoliosis. Impression: Right lower lobe atelectasis versus pneumonia. .
[2017-12-30] MEDS: AMOX/CLAV 875 MG/125 MG TABLET PO SCH ×2 (12:01→21:13)
--- NOTE | 2017-12-30 13:18 | Progress Note ---
- Date 12/30/17 Subjective: no acute issues overnight. patient continues to feel well and has had no symptomatic changes. no SOA at rest or exertion. no chest pain, orthopnea, PND , new edema. pain noted previously in right knee, ankle, cooper, foot is significantly improved from previous. no swelling or color changes in those areas. no new or changing numbness/weakness/tingling in extremities or otherwise compared to usual baseline. no falls, trauma, injuries, fatigue, weakness, ear pain, sinus pain, sore throat, runny nose, unintentional weight loss, appetite changes/issues. patient is eating and drinking ok. no aspiration or dysphagia issues. no changes in eyelid droop from previous. no vision changes or loss. no cranial nerve symptoms/deficits, headaches, stroke symptoms. no new focal neurologic deficits. no new or changing boggy/inflammed /swollen/painful focal joints or muscle groups. no color changes or changes in perfusion status in extremities b/l X4. congestion in throat and sinuses from yesterday have resolved. no ear pain, sinus pain, sore throat, runny nose. no abdominal pain, GERD symptoms, nausea, vomiting, diarrhea. had X1 normal appearing bowel movement since our last visit. no skin changes from previous to uncovered areas and this is noted on patient's physical exam as well. no constipation. no bloody/black stools. no hematemesis, coffee ground emesis, melena, BRBPR. no dizziness, syncope, near-syncope as noted. no dysuria, hematuria, flank pain. no new or changing urinary frequency or nocturia. no urinary retention symptoms. no urinary/bowel incontinance. no polyuria or oliguria. no other urinary issues or changes. no mood changes, depression symptoms, confusion, altered mentation, obtundation, changes in cognition. no photophobia, meningeal symptoms, encephalopathic symptoms as noted. no skin changes or new rashes. oxygen weened down to one-half liter and holds sats ok there. no new issues otherwise at this time. Objective Vital signs: Temperature 97.9 F 12/30/17 07:27 Pulse Rate 62 12/30/17 07:27 Respiratory Rate 16 12/30/17 11:50 Blood Pressure 122/61 12/30/17 07:27 Pulse Oximetry 93 12/30/17 11:50 Height/Weight/BMI: Height 1.6 m Weight 48.9 kg Body Mass Index 16.2 - Constitutional Present: no acute distress, cooperative Comments: no clinical evidence of obtundation, confusion, altered mentation, photophobia, meningitis, encephalopathy, depression, anxiety, altered mentation. - Routine HEENT Exam Head: Present: normocephalic, atraumatic ENT: Present: mucous membranes moist Comments: no changes from previous baseline. - Routine Respiratory Exam Comments: lungs clear to auscultation b/l at this time. moving air at patient's usual baseline. lung sounds heard in all lung cruz b/l at this time. no respiratory distress, retractions, accessory muscle use, stridor, airway compromise b/l at this time - Routine Cardiovascular Exam Present: RRR Comments: no new murmurs. no changes from previous in regards to cardiac exam. no new edema from previous. no new or changing boggy/inflammed/swollen focal joints or muscle groups. right lower extremity knee/cooper/ankle/foot exam unchanged from previous and no new edema/redness/swelling from previous. no changes in perfusion status in all 4 extremities b/l at this time as compared to previous. compartments soft b/l in extremities b/l X4 at this time. - Routine Abdominal Exam Present: soft (X4.), normoactive bowel sounds (X4.), non distended (X4.), non tender (X4.) Comments: no guarding, rigidity, rebound. no ascites, jaundice, distension. no organomegally. no masses. no changes from previous baseline. - Routine Exam Comments: no tenderness over bladder area. no clinical evidence upper UTI at this time. - Routine Extremities Exam Comments: see the above as well. - Routine Back/Spine/Pelvis Exam Comments: chronic kyphosis stable. see the above as well. - Routine Skin Exam Present: intact Comments: no skin changes from previous to uncovered areas at this time. - Routine Neurological Exam Present: alert, oriented X3 CN2-12 in tact to testing and no changes. sensation/motor/muscle strength/DTR' s unchanged from previous in all 4 extremities b/l at this time. lower extremity motor/muscle strength not changed from previous exam bilaterally. no clinical evidence of paloma, depression, anxiety, altered mentation, obtundation , confusion, psychosis, delirium at this time. affect and cognition unchanged from previous baseline. eyelid's unchanged from previous exam bilaterally at this time. - Routine Psychiatric Exam Present: normal affect, normal thought process, cooperative Comments: see the above as well. 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 residual right lower leg, knee, ankle, foot contusions from falls, improving. dysphagia with water a few days ago group C strep lower urinary tract infection musculoskeletal axilla and upper chest pain from belt used for lifting, resolved. constipation, resolved eyelid droop on left, stable mild macrocytosis, new, unlikely of any clinical significance. non-specific elevation in fasting blood sugar chronic venous insufficiency history of symptomatic PVC's psoriasis seasonal allergies HTN hyperlipidemia hypothyroid COPD -PT/OT/ST and other therapy orders as per primary. diet as per speech therapy and primary. other general admission orders per primary team (rehab). will likely get overnight oximetry before discharge. rest/exercise oximetry a consideration before discharge as well. continue oxygen as needed and continue to ween. this clinically appears to be most consistent with a mild aspiration pneumonitis/pneumonia at this time. patient is completely asymptomatic at this time. the possiblity of hospital acquired issue is present but given lack of symptoms we will gear the treatment toward most likely cause and if any clinically worsening we would likely add vancomycin and convert to zosyn and make any further antimicrobial choices clinically as well. workup for PE a consideration as well given patient refusing her SCD's. will consider pursuit of this if any clinical worsening or we don't get the response we expect. -cbc's stable and unremarkable to usual baseline. cmp with sugar in 200's ( non-fasting) and otherwise unremarkable. troponins all right about 0.030 X3 which likely represents a mild troponin lead from her therapies and current pneumonitis/pneumonia and doesn't represent any kind of ACS. EKG done today is non acute and generally unchanged from previous. see previous notes for other testing and results from this stay. -cbc, cmp ordered for the AM. -myasthenia gravis and [place] panel pending. respiratory pcr panel, sputum culture and gram stain, urine strep pneumonia, blood cultures X2 pending. -continue current synthroid, simvastatin, albuterol inhaler, advair BID inhaled, flecainide. discontinue current keflex and transition to augmentin orally. continue current saline nasal spray, mucinex prn, colace prn, senna prn, hydrocortisone cream prn, duonebs prn. -further management pending the above. all other chronic medical conditions stable and no other changes to plan of care at this time. ppx -patient reportedly refusing SCD's. see above as well. -will continue PO diet as above for GI prophylaxis. -FULL CODE. -dispo as per primary team. DVT Prophylaxis: other (see the above. ) GI Prophylaxis: other (continue PO diet. see the above. ) Resuscitation Status: Full Code - Time spent with patient Time with patient PN: 25 minutes Sepsis Assessment - Evaluation Severe Sepsis: none seen
[2017-12-30] MEDS: SENNOSIDES 8.6 MG TABLET PO PRN (21:14)
[2017-12-30] MEDS: SIMVASTATIN 40 MG TABLET PO SCH (21:14)
[2017-12-31] MEDS: LEVOTHYROXINE 25 MCG TABLET PO SCH (06:39)
[2017-12-31] MEDS: DOCUSATE SODIUM 100 MG CAPSULE PO SCH (09:32)
[2017-12-31] MEDS: AMOX/CLAV 875 MG/125 MG TABLET PO SCH ×2 (09:32→21:46)
[2017-12-31] MEDS: FLECAINIDE 50 MG TABLET PO SCH ×2 (09:33→21:45)
[2017-12-31] MEDS: GUAIFENESIN 400MG TABLET PO SCH ×3 (09:36→21:46)
--- NOTE | 2017-12-31 13:35 | Progress Note ---
- Date 12/31/17 Subjective: patient doing well today. has been off oxygen for several hours now and hold O2 sats above 90%. right now her oxygen saturation is 93% on room air. feels well overall but notes no increase in leg strength bilaterally since yesterday. right knee/ankle/cooper/foot pain from fall several days ago unchanged from last visit. having trouble swallowing the augmentin but does just fine when breaking it up. no aspiration or dysphagia, incidences since last visit. no falls, trauma, injuries. no new or changing numbness/weakness/tingling anywhere. no fevers, chills, body aches, fatigue, weakness, ear pain, sinus pain, sore throat, runny nose. no chest pain, SOA, orthopena, PND, new edema. no changes in exertional tolerance. no palpitations. no new or changing boggy/ inflammed/swollen focal joints or muscle groups. no cranial nerve symptoms/ deficits, focal neurologic deficits, headaches, dizziness, syncope, near- syncope. no hemoptysis. she denies new or changing cough. no skin changes or new rashes from previous. no skin/soft tissue infection symptoms. no abdominal pain, GERD symptoms, nausea, vomiting, diarrhea, constipation, bloody/ black stools. X1 normal appearing stool per patient since our last visit. no hematemesis, coffee ground emesis, dysuria, hematuria, flank pain, polyuria, oliguria, other urinary symptoms/changes. no new or changing nocturia or urinary frequency. no mood changes, depression symptoms, homicidal/suicidal ideations, obtundation, photophobia, encephalopathic symptoms, meningeal symptoms. no new muscle/joint issues. no changes in eye lid droop on left from previous and this is better nor worse. no new vision issues or changes. no new changes in color or perfusion status of extremities. no events called on oximetry otherwise overnight. daughter present for most of encounter today. no new issues otherwise at this time. Objective Vital signs: Temperature 97.9 F 12/31/17 08:00 Pulse Rate 66 12/31/17 08:00 Respiratory Rate 14 12/31/17 09:30 Blood Pressure 96/53 12/31/17 08:00 Pulse Oximetry 93 12/31/17 13:03 Height/Weight/BMI: Height 1.6 m Weight 48.9 kg Body Mass Index 16.2 - Constitutional Present: no acute distress, cooperative. Absent: cachectic, diaphoretic, disheveled, combative, agitated, somnolent, obtunded - Routine HEENT Exam Head: Present: normocephalic, atraumatic Eye: Present: EOMI, PERRL ENT: Present: mucous membranes moist Comments: no changes. - Routine Respiratory Exam Present: CTA bilaterally. Absent: accessory muscle use, patient mechanically ventilated, dyspnea, decreased breath sounds, prolonged expiratory phase, rales , respiratory distress, rhonchi, stridor, wheezes, crackles, distant breath sounds, diminished air movement Comments: lung sounds heard in all lung cruz b/l at this time. all findings above bilateral and as compared to her chronic baseline unless otherwise noted. - Routine Cardiovascular Exam Present: RRR Comments: no new murmurs. no changes from previous in regards to cardiac exam. no new edema from previous. no new or changing boggy/inflammed/swollen focal joints or muscle groups. right lower extremity knee/cooper/ankle/foot exam unchanged from previous and no new edema/redness/swelling from previous. no changes in perfusion status in all 4 extremities b/l at this time as compared to previous. compartments soft b/l in extremities b/l X4 at this time. - Routine Abdominal Exam Present: soft (X4.), normoactive bowel sounds (x4.), non distended (X4.), non tender (X4.). Absent: tenderness, distended (X4.), rebound (X4.), guarding, firm, rigid, organomegaly, mass Comments: no ascites, jaundice, distension. - Routine Exam Comments: no tenderness over bladder area. no clinical evidence of UTI at this time. - Routine Extremities Exam Comments: see above. - Routine Back/Spine/Pelvis Exam Comments: see the above. - Routine Skin Exam Present: intact Comments: no skin changes or new issues as compared to previous to uncovered areas. - Routine Neurological Exam Present: alert, oriented X3 CN2-12 in tact to testing and no changes. sensation/motor/muscle strength/DTR' s unchanged from previous in all 4 extremities b/l at this time. lower extremity motor/muscle strength not changed from previous exam bilaterally. no clinical evidence of paloma, depression, anxiety, altered mentation, obtundation , confusion, psychosis, delirium at this time. affect and cognition unchanged from previous baseline. eyelid's unchanged from previous exam bilaterally at this time. - Routine Psychiatric Exam Present: normal affect (for patient.), normal thought process (for patient.), cooperative. Absent: auditory hallucinations, visual hallucinations, tactile hallucinations, depressed, anxious, agitated, paranoid, manic Comments: see the above. no changes from previous baseline. Results - Labs CBC & Chem 7: 12/31/17 07:35 12/31/17 07:35 Microbiology Results: Microbiology 12/30/17 15:52 Sputum, Expectorated Gram Stain - Final 12/30/17 15:52 Sputum, Expectorated Sputum Culture - Preliminary Culture Initiated - Results Pending Assessment and Plan Assessment and Plan: mild acute on chronic hypoxic respirtory failure secondary to aspiration pneumonia/pneumonitis, significantly improved. 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 residual right lower leg, knee, ankle, foot contusions from falls, improving. dysphagia with water a few days ago group C strep lower urinary tract infection musculoskeletal axilla and upper chest pain from belt used for lifting, resolved. constipation, resolved eyelid droop on left, stable mild macrocytosis, new, unlikely of any immediate clinical significance. non-specific elevation in fasting blood sugar chronic venous insufficiency history of symptomatic PVC's psoriasis seasonal allergies HTN hyperlipidemia hypothyroid COPD -PT/OT/ST and other therapy orders as per primary and order given to resume these. diet as per speech therapy and primary. other general admission orders per primary team (rehab). overnight oximetry ordered for tonight and rest/exertion oximetry ordered for tomorrow morning. patient currently weened off oxygen and holding sats well. no indication for further workup for hypoxemia yesterday at this time given her significant improvement since yesterday. -cbc's unremarkable from previous baseline. cmp's with mild blood sugar elevation and otherwise unremarkable as compared to previous baseline. respiratory PCR is normal. -[facility] lambert/myasthenia gravis panel pending. sputum cx and gram stain pending. blood cx X2 negative thus far but officially pending. urine strep pneumonia pending. see previous notes for other testing and results from this stay. -continue current synthroid, simvastatin, albuterol inhaler, advair BID inhaled, flecainide, oral augmentin (day 2), saline nasal spray, mucinex prn, colace prn, senna prn, hydrocortisone cream prn, duonebs prn. -further management pending the above. all other chronic medical conditions stable and no other changes to plan of care at this time. ppx -patient reportedly refusing SCD's. see above as well. -will continue PO diet as above for GI prophylaxis. -FULL CODE. -dispo likely discharge to care facility tomorrow. case management and primary team working on this. DVT Prophylaxis: other (see above. patient refusing SCD's per report.) GI Prophylaxis: other (PO diet.) Resuscitation Status: Full Code - Time spent with patient Time with patient PN: 25 minutes Sepsis Assessment - Evaluation Severe Sepsis: none seen
--- NOTE | 2017-12-31 13:48 | IRU Progress Note ---
- Subjective/Serverity of Illness Date: 12/31/17 Jessica developed increasing oxygen requirements. She had a minimal bump in her troponin although electrocardiogram was unremarkable. Troponin was felt to be secondary to a type II increased demand situation. Dr. Prescott has evaluated the patient in this regard. She was started on an antibiotic (Augmentin) for an abnormal chest x-ray. Today she feels better. She does have occasional sputum which she describes as "the crud" coming from the back of her throat. She denies any chest pain. Her oxygen requirements remained borderline at 1/2-1 L and as of this afternoon she is actually back on room air. Continues to make progress with therapy. Discussion with family and patient however indicates that she may feel more comfortable going to a skilled care facility at this time rather than home. Exam Vital Signs: Temperature 97.9 F 12/31/17 08:00 Pulse Rate 66 12/31/17 08:00 Respiratory Rate 14 12/31/17 09:30 Blood Pressure 96/53 12/31/17 08:00 Pulse Oximetry 93 12/31/17 13:03 Height/Weight/BMI: Height 1.6 m Weight 48.9 kg Body Mass Index 16.2 - Constitutional Present: no acute distress, well nourished, well developed, cooperative - Routine HEENT Exam Eye: Present: EOMI ENT: Present: mucous membranes moist, oropharynx clear - Routine Respiratory Exam Present: decreased breath sounds, CTA bilaterally. Absent: wheezes - Routine Cardiovascular Exam Present: RRR, S1, S2. Absent: murmur - Routine Abdominal Exam Present: soft, normoactive bowel sounds, non distended. Absent: tenderness - Routine Extremities Exam Present: no edema, normal capillary refill - Routine Skin Exam Present: dry, warm - Routine Neurological Exam Present: alert, oriented X3, CN II-XII intact - Routine Psychiatric Exam Present: normal affect Results IRU - Labs Labs: I have personally reviewed the chest radiograph as well as lab work recently obtained as well as Dr. Prescott''s notes. IRU A/P (1) Debility Current visit: Yes Status: Acute Continues to display significant weakness although substantially improved. She is improving with regard to sliding board transfers. Discussion with patient and family in progress regarding placement however. (2) Acute hypoxemic respiratory failure Current visit: Yes Status: Acute Oxygen requirements are variable. Please see above discussion. She does have an abnormal chest x-ray and is on Augmentin in this regard. She is afebrile and otherwise feels better. (3) Elevated random blood glucose level Current visit: Yes Status: Resolved (4) UTI (urinary tract infection) Qualifiers: Urinary tract infection type: acute cystitis Hematuria presence: without hematuria Qualified Code(s): N30.00 - Acute cystitis without hematuria Current visit: Yes Status: Acute DVT Prophylaxis: other (see above. patient refusing SCD's per report.) Resuscitation Status: Full Code - Course Hospital Course: Sp Thornton MD: 12/25/17 11:17 Patient is cooperative. No fever noted. Room air saturations adequate. Blood sugars look good at present. Just getting started with therapy. Would like a stool softener. 12/28/17 11:01 Episode of dysphagia noted. Modified barium swallow done with speech therapy present. Does better with thin then with thickened liquids. 12/29/17 10:19 No further evidence of dysphagia. Tolerating thin liquids well. Cooperative with therapy. Working on sliding board transfers for safety. 12/31/17 13:50 Patient developed increasing oxygen requirements. Chest radiograph shows early pneumonitis. She is on Augmentin. Case management working on placement. - Interventions to Obtain Goals PT Treatment Plan: Functional Activities, Patient/Family Education, Therapeutic Exercise OT Treatment Plan: ADL (Basic Care), Balance Training, Pt./Family Education, Ther. Exercise for ADL Goals Progress/Modifications: Patient had a small bump in her troponin likely due to increased work demand rather than a true type I myocardial infarction. She does have an abnormal chest radiograph and is on Augmentin for possible pneumonitis. Her oxygen requirements are bit increased. She is actually feeling better at the present time compared to yesterday. She still has a lot of debility. Likely she will need skilled care for a time prior to return to her home environment. Have discussed with case management on several occasions as well as the patient.
[2017-12-31 16:21] VITALS: RESP 18
[2017-12-31] MEDS: SIMVASTATIN 40 MG TABLET PO SCH (21:45)
[2017-12-31] MEDS ORDERED: ACETAMINOPHEN 325 MG TABLET PO PRN (23:05)
[2017-12-31] MEDS ORDERED: FALL RISK - PHARMACY CONSULT MC ONE (23:24)
[2018-01-01] MEDS: LEVOTHYROXINE 25 MCG TABLET PO SCH (05:29)
[2018-01-01 07:10] VITALS: BP 131/49; TEMP 97.7; O2SAT 95
--- NOTE | 2018-01-01 08:48 | Infectious Disease Consult ---
Infectious Disease Consult Date of Consultation: 01/01/18 Requesting Physician: Bakari Prescott Reason for Consultation: antibiotic recs History of Present Illness: Ms. Alford is an 87 y/o woman with a h/o post-polio syndrome and is wheelchair bound. She has had increased weakness over the past couple of weeks. Reports that she fell 3 times while she was transferring herself to the commode. He denies any recent fevers chills sweats nausea vomiting or diarrhea. She also denies any dysuria or urinary frequency over the past couple of weeks. She had a urinalysis obtained on December 23 which showed 10-20 white blood cells 1+ leukocyte esterase trace bacteria. Urinalysis did not flag the need to do a culture however a culture was ordered anyway. It grew 10-50,000 colony-forming units per milliliter of group C streptococcus. She was admitted here on December 23 for generalized weakness and falls. On admission her white blood cell count was normal at 6.6. Her vital signs have been normal and there was no concern for sepsis. She was admitted to the IRU for physical therapy. She was started on cephalexin 500 mg by mouth every 12 hours on December 24 for UTI. She has complained of some difficulty managing secretions in the back of her throat and feeling that she has a lot of congestion in her head in the mornings. When a modified barium swallow study on December 28 which showed tracheal penetration with every consistency but no aspiration was seen. She had a chest x-ray done on December 30 because of hypoxia. Showed a questionable right lower lobe atelectasis versus pneumonia. He has not had fever or leukocytosis throughout her entire hospital stay. Due to concern for possible aspiration versus healthcare associated pneumonia she was started on Augmentin on December 30 and the cephalexin was discontinued. She had a urine strep pneumo antigen on December 30 which was negative. Blood cultures obtained on December 30 and one of those is now growing Streptococcus species. This was reported yesterday evening. Dr. Swan called me and discussed this case with me yesterday evening I recommended starting vancomycin until further information is available. This morning the positive blood culture has been identified as a strep species. When I called the micro-lab there preliminary impression is that this is a viridans strep species and there might actually be a second organism in there as well. The patient reports that she is feeling well. She had troponins checked on December 30 and the highest was 0.036. She tells me that she is hoping that she can be discharged to a facility today. Medications Home Medications Medication Instructions Recorded Confirmed Type Albuterol HFA Inhaler [Ventolin 2 puff ORAL INH Q6H PRN 12/23/17 12/24/17 History Hfa 90 mcg/actuation] Flecainide [Tambocor] 50 mg PO Q12H 12/23/17 12/24/17 History Fluticasone/Salmeterol 250/50 1 puff INH BID PRN 12/23/17 12/24/17 History [Advair 250-50 Diskus] Levothyroxine Tab [Synthroid] 12.5 mcg PO ACB 12/23/17 12/24/17 History Simvastatin [Zocor] 40 mg PO HS 12/23/17 12/24/17 History CephALEXin [Keflex 500 mg] 500 mg PO Q12HR cap 12/24/17 12/25/17 Rx Glucose Oral Gel 40% [Glutose 15] 37.5 gm PO PRN PRN tube 12/24/17 12/25/17 Rx Insulin Aspart [NovoLOG] 1 - 5 unit SQ SS PRN vial 12/24/17 12/25/17 Rx Sodium Chloride [Deep Sea] 2 spray EA NOSTRIL Q6HR PRN spray 12/24/17 12/25/17 Rx Allergies Allergy/AdvReac Type Severity Reaction Status Date / Time rabbit dander Allergy Intermediate ALLERGIC Verified 12/23/17 16:46 CONTACT DERMATITIS aspirin AdvReac Intermediate VOMITING Verified 12/23/17 16:46 Mushrooms Allergy Intermediate HIVES Uncoded 12/23/17 16:46 PFSH Patient Stated Medical History Cataracts Yes: both Other HEENT Yes: ringing of RT ear Heart Murmur Yes 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 -seasonal allergies. -frequent symptomatic PVC's. -COPD. -hyperlipidemia. -hypothyroid Surgical History: -thumb surgery. -breast surgery (not for cancer). -nose surgery. -appendectomy Family History: Patient's father with alcohol-related liver disease. Mother experienced sudden in her late 30's. Two brothers are . Family History Updates: -mother and father both . - Social History Smoking status: Former smoker Packs per day: 1 Packs-years: 30 (Pt smoked from ages 20 to 50 approx.) Alcohol intake: never Alcohol intake frequency: does not drink Housing: house Household members: family Current occupational status: retired Current residence: Apartment/Private Home Review of Systems All systems PM: 10-point ROS was reviewed, no additional remarkable complaints except - Constitutional Constitutional: Absent: fever(s), headache(s) - Respiratory Respiratory: Absent: cough, dyspnea - Genitourinary Genitourinary: Absent: dysuria, urinary frequency - Musculoskeletal Musculoskeletal: Present: arthralgias (due to arthritis) - Neurological Neurological: Present: frequent falls, weakness Exam Vital Signs: Temperature 97.7 F 01/01/18 07:09 Pulse Rate 62 01/01/18 07:09 Respiratory Rate 18 01/01/18 07:23 Blood Pressure 131/49 01/01/18 07:09 Pulse Oximetry 95 01/01/18 07:09 Height/Weight/BMI: Height 1.6 m Weight 48.9 kg Body Mass Index 16.2 - Constitutional Present: no acute distress, well nourished, well developed Comments: seated in wheelchair - Routine HEENT Exam Head: Present: normocephalic, atraumatic Eye: Present: EOMI, PERRL ENT: Present: mucous membranes moist, oropharynx clear, dentition normal - Routine Neck Exam Present: supple - Routine Respiratory Exam Present: CTA bilaterally - Routine Cardiovascular Exam Present: RRR - Routine Abdominal Exam Present: soft, normoactive bowel sounds, non distended, non tender - Routine Exam Comments: No virgen, no bladder tenderness, no CVA tenderness - Routine Extremities Exam Present: edema (1+ edema near ankles, R>L). Absent: cyanosis, clubbing - Routine Skin Exam Present: intact. Absent: rash - Routine Neurological Exam Present: alert, oriented X3, CN II-XII intact, normal speech - Routine Psychiatric Exam Present: normal affect Results - Labs CBC & Chem 7: 12/31/17 07:35 12/31/17 07:35 Microbiology Results: Microbiology 12/30/17 18:30 Peripheral/Iv Start Gram Stain - Preliminary 12/30/17 18:30 Peripheral/Iv Start Blood Culture - Preliminary Streptococcus species 12/30/17 16:56 Urine Streptococcus pneumoniae Antigen (M - Final 12/30/17 15:52 Sputum, Expectorated Gram Stain - Final 12/30/17 15:52 Sputum, Expectorated Sputum Culture - Preliminary No Growth After 1 Day Impression: One of two blood cultures positive for Strep species, suspect collection contaminant Asymptomatic bacteriuria Weakness, debilitation Acute hypoxic respiratory failure, improving Postpolio syndrome Arthritis Hypothyroidism Recommendation: Clinically she appears stable and without any signs or symptoms of sepsis. I would recommend stopping her vancomycin and observing her closely. Her blood cultures will need to be followed up, however I suspect that the positive blood culture is a collection contaminant. I am not convinced that she had a recent urinary tract infection. I am also not convinced that she needs to be treated with antibiotics for aspiration pneumonia. My recommendations were discussed with Dr. Prescott. Thank you.
[2018-01-01] MEDS: DOCUSATE SODIUM 100 MG CAPSULE PO SCH (08:59)
[2018-01-01] MEDS: FLECAINIDE 50 MG TABLET PO SCH (08:59)
[2018-01-01] MEDS: GUAIFENESIN 400MG TABLET PO SCH (09:02)
--- NOTE | 2018-01-01 10:58 | IRU Progress Note ---
- Subjective/Serverity of Illness Date: 01/01/18 Jessica states that she does not have any sputum today. She is not particular dyspneic. I have reviewed the recommendations of Dr. Norman with the patient. Antibiotics have been discontinued. Likely the blood culture is a contaminant. I also discussed placement with the patient. She is planning to enter skilled care this afternoon and arrangements have been made. Exam Vital Signs: Temperature 97.7 F 01/01/18 07:09 Pulse Rate 62 01/01/18 07:09 Respiratory Rate 18 01/01/18 07:23 Blood Pressure 131/49 01/01/18 07:09 Pulse Oximetry 95 01/01/18 07:09 Height/Weight/BMI: Height 1.6 m Weight 48.9 kg Body Mass Index 16.2 - Constitutional Present: no acute distress, well nourished, well developed, cooperative - Routine HEENT Exam Eye: Present: EOMI ENT: Present: mucous membranes moist, oropharynx clear - Routine Respiratory Exam Present: decreased breath sounds, CTA bilaterally. Absent: rales, respiratory distress, wheezes, crackles - Routine Cardiovascular Exam Present: RRR, S1, S2, murmur - Routine Abdominal Exam Present: soft, normoactive bowel sounds, non distended. Absent: tenderness - Routine Extremities Exam Present: no edema, normal capillary refill - Routine Skin Exam Present: dry, warm - Routine Neurological Exam Present: alert, oriented X3, CN II-XII intact - Routine Psychiatric Exam Present: normal affect, cooperative Results IRU - Labs Labs: I reviewed all laboratory data and other providers notes as well as chart data. IRU A/P (1) Debility Current visit: Yes Status: Acute Patient continues to require skilled level of care with physical therapy and occupational therapy. (2) Acute hypoxemic respiratory failure Current visit: Yes Status: Acute She has required nasal cannula oxygen supplementation from time to time and will need to continue monitoring her saturations in this regard. (3) Elevated random blood glucose level Current visit: Yes Status: Resolved (4) UTI (urinary tract infection) Qualifiers: Urinary tract infection type: acute cystitis Hematuria presence: without hematuria Qualified Code(s): N30.00 - Acute cystitis without hematuria Current visit: Yes Status: Acute DVT Prophylaxis: other (see above. patient refusing SCD's per report.) Resuscitation Status: Full Code - Course Hospital Course: Sp Thornton MD: 12/25/17 11:17 Patient is cooperative. No fever noted. Room air saturations adequate. Blood sugars look good at present. Just getting started with therapy. Would like a stool softener. 12/28/17 11:01 Episode of dysphagia noted. Modified barium swallow done with speech therapy present. Does better with thin then with thickened liquids. 12/29/17 10:19 No further evidence of dysphagia. Tolerating thin liquids well. Cooperative with therapy. Working on sliding board transfers for safety. 12/31/17 13:50 Patient developed increasing oxygen requirements. Chest radiograph shows early pneumonitis. She is on Augmentin. Case management working on placement. 01/01/18 10:58 Anticipate safe transition to intermediate skilled care this afternoon. - Interventions to Obtain Goals PT Treatment Plan: Functional Activities, Patient/Family Education, Therapeutic Exercise OT Treatment Plan: ADL (Basic Care), Balance Training, Pt./Family Education, Ther. Exercise for ADL
--- NOTE | 2018-01-01 11:05 | IRU Progress Note ---
- Subjective/Serverity of Illness Date: 01/01/18 Jessica was interviewed and examined in her room on acute inpatient rehabilitation today. She is comfortable. She denies any cough nor sputum. She has no particular problem with shortness of breath. Her oxygen saturations have been variable and at times she does require supplementation with oxygen per nasal cannula. Exam Vital Signs: Temperature 97.7 F 01/01/18 07:09 Pulse Rate 62 01/01/18 07:09 Respiratory Rate 18 01/01/18 07:23 Blood Pressure 131/49 01/01/18 07:09 Pulse Oximetry 95 01/01/18 07:09 Height/Weight/BMI: Height 1.6 m Weight 48.9 kg Body Mass Index 16.2 IRU A/P (1) Debility Current visit: Yes Status: Acute (2) Acute hypoxemic respiratory failure Current visit: Yes Status: Acute (3) Elevated random blood glucose level Current visit: Yes Status: Resolved (4) UTI (urinary tract infection) Qualifiers: Urinary tract infection type: acute cystitis Hematuria presence: without hematuria Qualified Code(s): N30.00 - Acute cystitis without hematuria Current visit: Yes Status: Acute DVT Prophylaxis: other (see above. patient refusing SCD's per report.) Resuscitation Status: Full Code - Course Hospital Course: Sp Thornton MD: 12/25/17 11:17 Patient is cooperative. No fever noted. Room air saturations adequate. Blood sugars look good at present. Just getting started with therapy. Would like a stool softener. 12/28/17 11:01 Episode of dysphagia noted. Modified barium swallow done with speech therapy present. Does better with thin then with thickened liquids. 12/29/17 10:19 No further evidence of dysphagia. Tolerating thin liquids well. Cooperative with therapy. Working on sliding board transfers for safety. 12/31/17 13:50 Patient developed increasing oxygen requirements. Chest radiograph shows early pneumonitis. She is on Augmentin. Case management working on placement. 01/01/18 10:58 Anticipate safe transition to assisted skilled care this afternoon. - Interventions to Obtain Goals PT Treatment Plan: Functional Activities, Patient/Family Education, Therapeutic Exercise OT Treatment Plan: ADL (Basic Care), Balance Training, Pt./Family Education, Ther. Exercise for ADL
--- NOTE | 2018-01-01 11:12 | Extended Care Facility Orders ---
Admission Orders Admit to:: Half-Way Allergies/Adverse Reactions: Allergies rabbit dander Allergy (Intermediate, Verified 12/23/17 16:46) ALLERGIC CONTACT DERMATITIS aspirin Adverse Reaction (Intermediate, Verified 12/23/17 16:46) VOMITING Mushrooms Allergy (Intermediate, Uncoded 12/23/17 16:46) HIVES AND VOMITING Admitting Diagnosis: Dability, Generalized Weakness Admitting Physician: Sp Thornton MD Attending Physician: Sp Thornton MD Code Status: Full Code Anticiapted Length of Stay: 30 days or less Rehab Potential: fair Rehab Prognosis: fair Diet: 12/29/17 Dinner Regular Diet [DIET] Diet Modifications: Fluid Consistency: REGLIQU Food Consistency: CHMEAT Wound/Incision Care: N/A Evaluations/Treatment: PT, OT Half-Way Certification: I certify that SNF services are required to be given on an Inpatient basis because of the patients need for intermediate care on a continuing basis for the condition(s) for which he/she received inpatient hospital services prior to his/her transfer to the SNF. SNF inpatient care is necessary for the following reasons Indication for Half-Way: Teach COPD Management, Other (Monitor O2 sats) - Additional Information In Event of Arrest: Start CPR,call 911,send patient to the ER Resident is Aware of Diagnosis: Yes Referrals: Bakari Prescott DO [Primary Care Provider] - (f/u 1-2 weeks after discharge from SNU.)
--- NOTE | 2018-01-01 11:29 | Discharge Summary ---
Discharge Information Date of admission: 12/24/17 17:30 Anticipated date of discharge: 01/01/18 Attending Physician: Sp Thornton MD Primary care physician: Bakari Prescott DO Consults: 12/24/17 19:01 Physician Consult [CONS] Routine Consulting Provider: Bakari Prescott Reason For Exam: medical management Ordering Provider has Notified Tube Blower: No 12/31/17 14:24 Doctor [Physician Consult] [CONS] Routine Consulting Provider: Samuel Cook Reason For Exam: REVIEW FOR SKILLED Ordering Provider has Notified Tube Blower: Yes Doctor [Physician Consult] [CONS] Routine Consulting Provider: Troy Betancourt Reason For Exam: REVIEW FOR SKILLED. Ordering Provider has Notified Tube Blower: Yes 12/31/17 19:52 Physician Consult [CONS] Routine Consulting Provider: Sigrid Norman Reason For Exam: gram postivev cocci in chains in blood culture Ordering Provider has Notified Tube Blower: No 01/01/18 05:32 Case Management Consult [CONS] Routine Reason For Exam: Noc Ox Study - Discharge Diagnosis (1) Debility Status: Acute (2) Acute hypoxemic respiratory failure Status: Acute (3) Elevated random blood glucose level Status: Resolved (4) UTI (urinary tract infection) Status: Acute 1. Generalized debility 2. Frequent falls 3. Postpolio syndrome 4. Acute hypoxemic respiratory failure - Laboratory Labs: 12/31/17 07:35 12/31/17 07:35 - Microbiology Microbiology 12/30/17 18:30 Peripheral/Iv Start Gram Stain - Preliminary 12/30/17 18:30 Peripheral/Iv Start Blood Culture - Preliminary Streptococcus species 12/30/17 16:56 Urine Streptococcus pneumoniae Antigen (M - Final 12/30/17 15:52 Sputum, Expectorated Gram Stain - Final 12/30/17 15:52 Sputum, Expectorated Sputum Culture - Preliminary No Growth After 1 Day History of Present Illness HPI: Ms. Alford has recently developed multiple falls and generalized weakness in the last week or two. 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 She was not able to be cared for as an outpatient. She does have a cough without sputum and also has developed a urinary tract infection with Streptococcus. She does have evidence of acute hypoxemic respiratory failure with need for close monitoring and supplementation of oxygen. She has occasional blood sugars above the expected range. Hospital Course This is a general summary of the patient's hospital course. For more details refer to the complete medical record. The patient was admitted to acute inpatient rehabilitation on 12/24/2017 for a multidisciplinary approach to her recovery. She was seen by Dr. Prescott on a regular basis and also cared for by Dr. Thornton. Her oxygen requirements improved during the time of her stay on inpatient rehabilitation. She still required occasional supplementation of oxygen to keep her saturations above 90%. She continued with a cough and at one point was felt to have some dysphagia. She was evaluated by speech therapy in this regard but ultimately it was recommended that she continue on thin liquids and regular consistency foods. She did develop worsening hypoxemia and a chest radiograph was obtained demonstrating the possibility of early pneumonitis. She was started on Augmentin in this regard. She did improve. Blood cultures were obtained one of which was positive for what appeared to be Streptococcus species. She was seen by Dr. Norman who felt this was likely a contaminant. She recommended discontinuance of all antibiotics at present. The following levels of functional competence are to be considered preliminary information. The reader is encouraged to refer to actual therapy notes and reports for specific details. She was seen by occupational therapy. At the conclusion of her stay, the following functional levels were noted: She was independent for grooming but required standby assistance for bathing. She requires standby assistance for upper body dressing and minimum assistance for lower body dressing. She was also seen by physical therapy and at the conclusion of her stay, the following functional levels were noted: The patient required standby assistance for bed/chair/wheelchair transfers as well as toilet transfers. She was unsafe for walking but could ambulate with a motorized wheelchair. It was hoped that she could safely return to her home environment. However after reassessing her situation, the family and patient requested that she be placed in a skilled care nursing facility to continue her strengthening process. She was therefore transferred to [facility] on 01/01/2018 for continued skilled physical therapy and occupational therapy. She was medically stable at the time of dismissal although will require continued monitoring of her oxygen saturations. She will be followed by Dr. Prescott as an outpatient. Time spent with patient: greater than 35 minutes Resuscitation Status: Full Code Discharge Plan - Med Rec/Dispo Referrals/Follow Up: Bakari Prescott DO [Primary Care Provider] - (f/u 1-2 weeks after discharge from SNU.) Prescriptions: New Docusate Sodium [Colace] 100 mg PO DAILY cap Acetaminophen [Tylenol] 650 mg PO Q5H PRN tab PRN Reason: Discomfort Sennosides [Senna Lax] 8.6 mg PO BID PRN tab PRN Reason: Constipation Continue Albuterol HFA Inhaler [Ventolin Hfa 90 mcg/actuation] 2 puff ORAL INH Q6H PRN PRN Reason: Shortness Of Air/Wheezing Fluticasone/Salmeterol 250/50 [Advair 250-50 Diskus] 1 puff INH BID PRN PRN Reason: Shortness Of Air/Wheezing Flecainide [Tambocor] 50 mg PO Q12H Simvastatin [Zocor] 40 mg PO HS Sodium Chloride [Deep Sea] 2 spray EA NOSTRIL Q6HR PRN spray PRN Reason: Congestion Levothyroxine Tab [Synthroid] 12.5 mcg PO ACB Discontinued Insulin Aspart [NovoLOG] 1 - 5 unit SQ SS PRN vial PRN Reason: Hyperglycemia CephALEXin [Keflex 500 mg] 500 mg PO Q12HR cap Glucose Oral Gel 40% [Glutose 15] 37.5 gm PO PRN PRN tube PRN Reason: Hypoglycemia - Disposition 03 To SNU Not [facility] (SNF) - Dismissal Complete Discharge Instructions are:: Complete
[2018-01-01 11:30] VITALS: PULSE 70
--- NOTE | 2018-01-01 11:33 | Letter to Referring Physician ---
Dear Dr. Prescott, This is a brief note to bring you up-to-date on the status of Jessica Alford and her stay on the acute inpatient rehabilitation unit at [facility]. She was admitted to inpatient rehabilitation unit at [facility] on December 24, 2017. While on inpatient rehabilitation, this patient was seen by occupational therapy and physical therapy and improved overall in their functional ability. At one point there is a question of dysphagia and she was seen by speech therapy. Her diet was initially modified but subsequently relaxed to regular diet and she did well. As you are aware, there is a question of pneumonitis and she was treated with antibiotics for a time. Blood cultures were obtained, one of which was positive for Streptococcus species. She was seen in consultation by Dr. Norman who felt as though this was a contaminant. Please see a copy of the history and physical examination as well as discharge summary faxed separately for further details. It was hoped that she could return home. However her family and the patient requested continue therapy and therefore she was transferred to [facility] on 01/01/2018 for continued therapy. Appointment will be made with you to follow-up. She is not sent home on any antibiotics nor pain medications except for Tylenol. We did request that the correction monitor her saturations carefully and provide supplemental oxygen as needed to keep saturations 90% or greater. Thank you for allowing us to be involved in this nice patient's care. Please contact me directly should you have any questions regarding their stay on the inpatient rehabilitation unit. Sincerely, Sp Thornton M.D.
== END 2018-01-01 14:20 | DRG 91 ==
PROVIDERS: ADMIT Internal Medicine; ATTEND Internal Medicine

== ENCOUNTER 2018-02-13 16:30 | Inpatient (IN) ==
[2018-02-13] MEDS: SALINE FLUSH 10ml SYRINGE IVF PRN ×2 (16:55→21:33)
--- NOTE | 2018-02-13 17:06 | Emergency Department Report ---
SOB HPI - General Chief Complaint: Shortness of Breath/Dyspnea Stated Complaint: trouble breathing Time Seen by Provider: 02/13/18 16:45 Source: patient, family Mode of arrival: EMS Limitations: no limitations - History of Present Illness [facility] a [facility] of shortness of breath and weakness which has progressed over the last 2 days. Family reports today [facility] staff had a RA SpO2 in the mid 70s and put pt on oxygen bumping her to the 80s. Once O2 had to be increased again EMS was called for transport. Pt reports she feels like she is full of phlegm but is not coughing. She does have a history of polio. She is normally able to transfer herself to use the bathroom etc but her weakness has been pronounces enough that she has been unable to do that for the last couple of days. Pt reports normal bowel nad bladder habits, she does have pedal edema, denies fever, cough, or chest pain. MD Complaint: shortness of breath Onset (ago): day(s) Consistency/Duration: constant Known history of: congestive heart failure Associated symptoms: other (weakness) Treatment prior to arrival: oxygen - Related Data Home oxygen amount: none Home Medications Medication Instructions Recorded Confirmed Albuterol HFA Inhaler [Ventolin 2 puff ORAL INH Q6H PRN 12/23/17 02/13/18 Hfa 90 mcg/actuation] Fluticasone/Salmeterol 250/50 1 puff INH BID PRN 12/23/17 02/13/18 [Advair 250-50 Diskus] Levothyroxine Tab [Synthroid] 12.5 mcg PO ACB 12/23/17 02/13/18 Simvastatin [Zocor] 40 mg PO HS 12/23/17 02/13/18 Apremilast [Otezla] 30 mg PO BID 02/13/18 02/13/18 Flecainide [Tambocor] 100 mg PO BID 02/13/18 02/13/18 guaiFENesin [Mucinex] 600 mg PO BID 02/13/18 02/13/18 Previous Rx's Medication Instructions Recorded Acetaminophen [Tylenol] 650 mg PO Q5H PRN tab 01/01/18 Docusate Sodium [Colace] 100 mg PO DAILY cap 01/01/18 Sennosides [Senna Lax] 8.6 mg PO BID PRN tab 01/01/18 Allergies Allergy/AdvReac Type Severity Reaction Status Date / Time rabbit dander Allergy Intermediate ALLERGIC Verified 02/13/18 16:40 CONTACT DERMATITIS aspirin AdvReac Intermediate VOMITING Verified 02/13/18 16:40 Mushrooms Allergy Intermediate HIVES Uncoded 12/23/17 16:46 Review of Systems All systems: reviewed and negative except as stated Constitutional: Reports: as per HPI Cardiovascular: Reports: as per HPI Respiratory: Reports: as per HPI Gastrointestinal: Reports: as per HPI Genitourinary: Reports: as per HPI Musculoskeletal: Reports: as per HPI Neurological: Reports: as per HPI PFSH Patient Stated Medical History Cataracts Yes: both Other HEENT Yes: ringing of RT ear Heart Murmur Yes 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 -seasonal allergies. -frequent symptomatic PVC's. -COPD. -hyperlipidemia. -hypothyroid Surgical History: -thumb surgery. -breast surgery (not for cancer). -nose surgery. -appendectomy Family History Updates: -mother and father both . - Social History Smoking status: Former smoker Packs-years: 30 (Pt smoked from ages 20 to 50 approx.) Alcohol intake: never Alcohol intake frequency: does not drink Housing: house Household members: family Current occupational status: retired Current residence: Apartment/Private Home Physical Exam - Limitations Limitations: no limitations - General General appearance: alert, in no apparent distress - Normal Exams: Head:: Normocephalic without trauma Eyes:: Pupils are PERRLA w/ EOMI Cardiovascular:: Regular rate and rhythm, without murmur or gallop, Pulses 2+ all extremities, capillary refill, <2 seconds all extremities (1+ non pitting edema bilaterally) Abdomen:: Bowel sounds positive, soft, non-tender, non-distended Musculoskeletal:: No tenderness, or deformity noted, good range of motion, all extremities (per pt baseline) Integumentary:: No rashes Neurological:: Patient is alert, and oriented, cranial nerves, motor/sensory/ cerebellar, exams w/o gross deficits, to observation Psychiatric:: Patient exhibits, appropriate attention, emotion and affect - Expanded Respiratory Exam Location: Right: rhonchi, Upper: rhonchi, Lower: rhonchi Shortness of Breath/Dyspnea - [facility] Narrative Medical decision making narrative: Labs reviewed with no significant findings. Still waiting UA. CXR reveals some haziness with ? for aspiration pneumonia but no obvious effusions per Dr Fortune. Pt provided Duoneb and Solumedrol with some relief. Discussed findings and diagnostic results with Dr Diaz who will admit. CT of chest to be obtained prior to transfer to floor. Ct results called to Dr Diaz NO PE, RLL and BEBE infiltrates/atelectasis, and small bilateral nodules - Differential Diagnosis Likely: acute exacerbation of chronic obstructive airways disease, congestive heart failure (NHAP) - Lab Data Attestation: I reviewed the patient's lab results. Result diagrams: 02/13/18 17:09 02/13/18 17:09 - Radiology Data Attestation: I reviewed the patient's radiology results. Disposition Clinical Impression: Hypoxia, Acute exacerbation of chronic obstructive airways disease Disposition: To [facility] Acute Care Condition: Stable - Seen By: sakina
--- OUTSIDE RECORDS SUMMARY | 2018-02-13 17:30 | External Medical Summary ---
:1930 Author Organization [employer] Care Team Providers Name Role Phone Bakari Prescott Provider Role Unavailable Allergies No Known Allergies Problems Problem Type Condition Code Onset Dates Condition Status Problem Hyperlipidemia, unspecified E78.5 Active Problem Chronic obstructive pulmonary J44.9 Active disease, unspecified Medications Medication Code System Code Instructions Start Date End Date Status Dosage ProAir HFA [facility] [id number] 108 (90 Base) 2 puffs as 1-85 MCG/ACT needed Inhalation every 4 hrs Results No Known Results Summary Purpose eClinicalWorks Submission
[2018-02-13] MEDS ORDERED: METHYLPREDNISOLONE SOD SUCC 125mg/2ml INJECTION IVP ONE (18:23)
[2018-02-13] MEDS ORDERED: ALBUTEROL/IPRATROPIUM 2.5mg-0.5mg/3ml NEB AEROSOL ONE (18:23)
--- NOTE | 2018-02-13 19:07 | History & Physical Report ---
History of Present Illness Date: 02/13/18 Chief complaint: SOA, cough, generalized weakness HPI: Jessica is an 87 y/o female w/ h/o CHF, COPD, Post-polio syndrome who presents to ER at [facility] brought by EMS from [place] w/ cc of SOA over the past couple of days and generalized weakness. Patient denies f/c/s, chest pain, FAUSTIN, dysphagia(thought does have meat cut up to eat it) and denies change in bowel/bladder function. She states she has been gradually more SOA over the past few days and has found it more difficult to transfer d/t overall weakness. Sats purportedly in the 70s at the correction so EMS placed 2 L/min O2 per NC and sats are now in the 90s. In ER patient had CXR that per prelim report was generally unchanged from prior CXR, and she received a DuoNeb and SoluMedrol 125mg IV x one and per ER provider 's report she is resting more comfortably. CT scan chest/angio showed no PE, however showed RLL infiltrates and BEBE infiltrates vs. atelectasis. WBC is 8.0 w/ 84% neutrophils and troponin is 0.025; the pro-BNP = 1462, BUN/Cr = 17/0.5. TCO2 on BMP =40. Patient to be admitted to the Hospitalist service for further evaluation and treatment. Vancomycin and Zosyn ordered Review of Systems All systems PM: 10-point ROS was reviewed, no additional remarkable complaints except Past Medical History Medical History Updates: -post-polio syndrome. -seasonal allergies. -frequent symptomatic PVC's. -COPD. -hyperlipidemia. -hypothyroid Surgical History: -thumb surgery. -breast surgery (not for cancer). -nose surgery. -appendectomy Family History: No Significant Family History - Social History Smoking status: Former smoker Current residence: Apartment/Private Home Medications Home Medications Medication Instructions Recorded Confirmed Type Albuterol HFA Inhaler [Ventolin 2 puff ORAL INH Q6H PRN 12/23/17 02/13/18 History Hfa 90 mcg/actuation] Fluticasone/Salmeterol 250/50 1 puff INH BID PRN 12/23/17 02/13/18 History [Advair 250-50 Diskus] Levothyroxine Tab [Synthroid] 12.5 mcg PO ACB 12/23/17 02/13/18 History Simvastatin [Zocor] 40 mg PO HS 12/23/17 02/13/18 History Acetaminophen [Tylenol] 650 mg PO Q5H PRN tab 01/01/18 02/13/18 Rx Docusate Sodium [Colace] 100 mg PO DAILY cap 01/01/18 02/13/18 Rx Sennosides [Senna Lax] 8.6 mg PO BID PRN tab 01/01/18 02/13/18 Rx Apremilast [Otezla] 30 mg PO BID 02/13/18 02/13/18 History Flecainide [Tambocor] 100 mg PO BID 02/13/18 02/13/18 History guaiFENesin [Mucinex] 600 mg PO BID 02/13/18 02/13/18 History Allergies Allergy/AdvReac Type Severity Reaction Status Date / Time rabbit dander Allergy Intermediate ALLERGIC Verified 02/13/18 16:40 CONTACT DERMATITIS aspirin AdvReac Intermediate VOMITING Verified 02/13/18 16:40 Mushrooms Allergy Intermediate HIVES Uncoded 12/23/17 16:46 Exam Vital Signs: Temperature 98.2 F 02/13/18 16:32 Pulse Rate 65 02/13/18 18:45 Respiratory Rate 28 H 02/13/18 18:34 Blood Pressure 174/68 H 02/13/18 18:31 Pulse Oximetry 97 02/13/18 18:45 Telemetry Rhythm: Sinus Rhythm Height/Weight/BMI: Height 1.57 m Weight 50.8 kg - Constitutional Present: no acute distress, thin, cooperative - Routine HEENT Exam Head: Present: normocephalic, atraumatic Eye: Present: EOMI, PERRL ENT: Present: mucous membranes moist, nares patent - Routine Neck Exam Present: supple, full ROM. Absent: JVD - Routine Respiratory Exam Present: prolonged expiratory phase, rales (RLL). Absent: accessory muscle use , dyspnea, respiratory distress, wheezes - Routine Cardiovascular Exam Present: RRR, murmur - Routine Abdominal Exam Present: soft, normoactive bowel sounds, non distended, non tender - Routine Extremities Exam Present: edema (1+ bilateral distal LE edema). Absent: cyanosis, clubbing - Routine Skin Exam Present: intact, dry. Absent: erythema - Routine Neurological Exam Present: alert, oriented X3 - Routine Psychiatric Exam Present: normal affect, normal thought process, good insight, good judgment Results - Labs CBC & Chem 7: 02/13/18 17:09 02/13/18 17:09 Assessment and Plan Assessment and Plan: Assessment: 1) Acute RLL Infiltrates concerning for pneumonia - cough, SOA, gen weakness though WBC wnl and afebrile. 2) Acute Hypoxia - has had intermittent need for O2 in the recent past but states was not currently on O2 at [place] 3) Acute Exacerbation of COPD 4) CHF 5) Post-polio syndrome - in a wheelchair for transport- generally able to transfer to/from bed, commode...etc. however has has some difficulty w/ that the past few days. 6) Symptomatic PVCs on Flecainide 7) HLD 8) Mild Hypothyroidism Plan: Admit to Hospitalist service Start Vancomycin 1gram IV x one and consult Pharmacy for Vancomycin management Start Zosyn 3.375g IV q 6 hours hold off on Levaquin or Azithromycin - potential interaction w/ Flecainide Hold on IVFs for now - check lactate level. If needed, cautious use of IVFs d/ t h/o CHF DuoNeb QID Albuterol neb q 4 hours prn SoluMedrol 125mg IV q 8 hours, reassess in AM for further need Telemetry Serial Troponins Oxygen therapy - titrate to keep sats > 90% RT consult Labs in the AM SCDs Home meds as indicated PT consult UA pending Full Code - states she will further d/w her son and [id number] DVT Prophylaxis: SCD's Resuscitation Status: Full Code - Physician Narrative Narrative: Date: 02/13/18 Time: 190 Hospital Course Summary Disclaimer: The visit summary below is not to be considered part of the above Progress Note.
[2018-02-13] MEDS ORDERED: IOHEXOL 350mg/ml 75ml INJECTION ONE (19:08)
[2018-02-13] MEDS ORDERED: SALINE FLUSH 10ml SYRINGE ONE (19:09)
[2018-02-13] MEDS ORDERED: ACETAMINOPHEN 325 MG TABLET PO PRN (20:03)
[2018-02-13] MEDS ORDERED: GUAIFENESIN LA 600 MG TABLET PO PRN (20:03)
[2018-02-13] MEDS ORDERED: ALBUTEROL 2.5mg/3ml (0.083%) NEB AEROSOL PRN (20:50)
[2018-02-13] MEDS: FLECAINIDE 100 MG TABLET PO SCH (21:31)
[2018-02-13] MEDS: SIMVASTATIN 40 MG TABLET PO SCH (21:31)
[2018-02-13] MEDS: ALBUTEROL/IPRATROPIUM 2.5mg-0.5mg/3ml NEB AEROSOL SCH (22:26)
[2018-02-13] MEDS: BUDESONIDE INH.SOLN 0.5mg/2ml NEB AEROSOL SCH (22:26)
[2018-02-13] MEDS: PIPERACILLIN/TAZOBACTAM 3.375 GM in NS 100 ML IV SCH (23:15)
[2018-02-14] MEDS: METHYLPREDNISOLONE SOD SUCC 125mg/2ml INJECTION IVP SCH ×2 (00:47→09:55)
[2018-02-14] MEDS: PIPERACILLIN/TAZOBACTAM 3.375 GM in NS 100 ML IV SCH ×2 (04:39→09:55)
[2018-02-14] MEDS: LEVOTHYROXINE 25 MCG TABLET PO SCH (05:51)
--- NOTE | 2018-02-14 09:08 | CT Scan Report ---
Indication: SOA, post polio syndrome PROCEDURE: CT angio pulm emboli: Encounter: Initial Comparison: None Technique: Axial CT pulmonary angiographic phase images were performed through the chest after the administration of intravenous contrast. Coronal and Sagittal MIP reconstructed images were created and reviewed. Automated Exposure Control and Iterative Reconstruction dose reducing techniques were utilized. Contrast: Omnipaque 350 65 mL Findings: Pulmonary arteries: Exam is diagnostic to the subsegmental pulmonary arterial level. No filling defects identified to suggest a pulmonary embolus. Central pulmonary arteries are enlarged consistent with pulmonary artery hypertension. Reflux of contrast into the IVC. Other findings: Bibasilar atelectasis without focal pneumonia, pleural effusion or pneumothorax. Severe scoliosis distorting the mediastinal contours. No gross adenopathy. Heart is moderately enlarged. No pericardial effusion. The upper abdomen shows no acute findings. Impression: No pulmonary embolus. There is a preliminary report by virtual radiologic. .
--- NOTE | 2018-02-14 09:11 | XRay Report ---
Indication: soa, weakness PROCEDURE: XR chest 1V: Encounter: Initial Comparison: CTA chest from the same date Findings: Hazy lower lobe opacities probably representing scarring or atelectasis, better seen on the CT. No pneumothorax or gross pleural effusion. Cardiomediastinal contours are suboptimally evaluated due to patient rotation and severe rotoscoliosis. Impression: Right basilar airspace disease probably representing atelectasis or less likely pneumonia based on the CT. .
[2018-02-14] MEDS: ALBUTEROL/IPRATROPIUM 2.5mg-0.5mg/3ml NEB AEROSOL SCH ×3 (09:20→15:16)
[2018-02-14] MEDS: BUDESONIDE INH.SOLN 0.5mg/2ml NEB AEROSOL SCH ×2 (09:24→18:55)
[2018-02-14] MEDS: DOCUSATE SODIUM 100 MG CAPSULE PO SCH (09:55)
[2018-02-14] MEDS: FLECAINIDE 100 MG TABLET PO SCH ×2 (09:58→20:36)
--- NOTE | 2018-02-14 14:26 | History & Physical Report ---
History of Present Illness Date: 02/14/18 HPI: was seen this am and noted that she feels fine and would like to be discharged back to facility. Pt is alert and oriented. Pt notes she just has some congestion from a cold likely but otherwise feels okay. Reports some mild sob but denies any cp, n/v/d, f/c. Reports she has an eye apt tomorrow that she really wants to make it too. Pt denies any cough and does not believe she has a pna. HPI From overnight: Jessica is an 87 y/o female w/ h/o CHF, COPD, Post-polio syndrome who presents to ER at [facility] brought by EMS from [place] w/ cc of SOA over the past couple of days and generalized weakness. Patient denies f/c/s, chest pain, FAUSTIN, dysphagia(thought does have meat cut up to eat it) and denies change in bowel/bladder function. She states she has been gradually more SOA over the past few days and has found it more difficult to transfer d/t overall weakness. Sats purportedly in the 70s at the long-term so EMS placed 2 L/min O2 per NC and sats are now in the 90s. In ER patient had CXR that per prelim report was generally unchanged from prior CXR, and she received a DuoNeb and SoluMedrol 125mg IV x one and per ER provider 's report she is resting more comfortably. CT scan chest/angio showed no PE, however showed RLL infiltrates and BEBE infiltrates vs. atelectasis. WBC is 8.0 w/ 84% neutrophils and troponin is 0.025; the pro-BNP = 1462, BUN/Cr = 17/0.5. TCO2 on BMP =40. Patient to be admitted to the Hospitalist service for further evaluation and treatment. Vancomycin and Zosyn ordered Past Medical History Medical History Updates: -post-polio syndrome. -seasonal allergies. -frequent symptomatic PVC's. -COPD. -hyperlipidemia. -hypothyroid Surgical History: -thumb surgery. -breast surgery (not for cancer). -nose surgery. -appendectomy Family History: No Significant Family History - Social History Smoking status: Former smoker Current residence: Apartment/Private Home Medications Home Medications Medication Instructions Recorded Confirmed Type Albuterol HFA Inhaler [Ventolin 2 puff ORAL INH Q6H PRN 12/23/17 02/13/18 History Hfa 90 mcg/actuation] Fluticasone/Salmeterol 250/50 1 puff INH BID PRN 12/23/17 02/13/18 History [Advair 250-50 Diskus] Levothyroxine Tab [Synthroid] 12.5 mcg PO ACB 12/23/17 02/13/18 History Simvastatin [Zocor] 40 mg PO HS 12/23/17 02/13/18 History Acetaminophen [Tylenol] 650 mg PO Q5H PRN tab 01/01/18 02/13/18 Rx Docusate Sodium [Colace] 100 mg PO DAILY cap 01/01/18 02/13/18 Rx Sennosides [Senna Lax] 8.6 mg PO BID PRN tab 01/01/18 02/13/18 Rx Apremilast [Otezla] 30 mg PO BID 02/13/18 02/13/18 History Flecainide [Tambocor] 100 mg PO BID 02/13/18 02/13/18 History guaiFENesin [Mucinex] 600 mg PO BID 02/13/18 02/13/18 History Allergies Allergy/AdvReac Type Severity Reaction Status Date / Time rabbit dander Allergy Intermediate ALLERGIC Verified 02/13/18 16:40 CONTACT DERMATITIS aspirin AdvReac Intermediate VOMITING Verified 02/13/18 16:40 Mushrooms Allergy Intermediate HIVES Uncoded 12/23/17 16:46 Exam Vital Signs: Temperature 96.1 F L 02/14/18 11:33 Pulse Rate 54 L 02/14/18 11:33 Respiratory Rate 24 02/14/18 13:07 Blood Pressure 109/51 02/14/18 11:33 Pulse Oximetry 95 02/14/18 13:07 Height/Weight/BMI: Height 5 ft 2 in Weight 51.3 kg Body Mass Index 19.9 - Constitutional Present: no acute distress - Routine HEENT Exam Head: Present: normocephalic, atraumatic - Routine Respiratory Exam Present: CTA bilaterally. Absent: wheezes - Routine Cardiovascular Exam Present: RRR, no murmur - Routine Abdominal Exam Present: soft, non distended, non tender - Routine Extremities Exam Present: edema. Absent: cyanosis, clubbing - Routine Skin Exam Present: intact, dry. Absent: erythema - Routine Neurological Exam Present: alert, oriented X3 Results - Labs CBC & Chem 7: 02/14/18 01:01 02/14/18 05:12 Microbiology Results: Microbiology 02/13/18 22:11 Peripheral/Iv Start Blood Culture - Preliminary Culture Initiated - Results Pending 02/13/18 22:11 Peripheral/Iv Start Blood Culture - Preliminary Culture Initiated - Results Pending Assessment and Plan Assessment and Plan: Acute vs. Chronic Hypoxic Respiratory Failure -Requiring 2L O2 currently, likely 2/2 atelectasis vs. chronic need not identified -Reports that pt has required O2 off/on at nursing facility -CT/CXR not overly consistent with pna, no WBC elevation, procal/CRP negative, minimal sx's reported by pt -Will d/c all abx, do resp vial panel, wean of O2 COPD -Stable, not suspecting exacerbation -RCAT Hypothyroid -Cont. home levo Ppx -SCDs - Physician Narrative Narrative: Date: 02/14/18 Time: 1422 Hospital Course Summary Disclaimer: The visit summary below is not to be considered part of the above Progress Note. Hospital Course: 02/14/18 Pt stable, likely close to baseline. Pt requiring minimal O2 and likely has chronic need. Little to no evidence for infection so will stop all abx and do not suspect copd exacerbation so will stop steroids.
[2018-02-14] MEDS: APREMILAST 30 MG PO SCH ×3 (15:33→20:39)
[2018-02-14] MEDS: SIMVASTATIN 40 MG TABLET PO SCH (20:36)
[2018-02-15] MEDS: LEVOTHYROXINE 25 MCG TABLET PO SCH (06:14)
[2018-02-15] MEDS: ALBUTEROL/IPRATROPIUM 2.5mg-0.5mg/3ml NEB AEROSOL SCH ×4 (07:45→21:53)
[2018-02-15] MEDS: APREMILAST 30 MG PO SCH ×2 (08:55→22:01)
[2018-02-15] MEDS: DOCUSATE SODIUM 100 MG CAPSULE PO SCH (08:56)
[2018-02-15] MEDS: FLECAINIDE 100 MG TABLET PO SCH ×2 (08:56→22:02)
[2018-02-15 12:54] VITALS: BMI 20.1
[2018-02-15] MEDS ORDERED: HALOPERIDOL 5 MG/ML INJECTION IVP ONE ×3 (14:18→23:49)
--- NOTE | 2018-02-15 16:36 | Progress Note ---
- Date 02/15/18 Subjective: Jessica is seen today in follow up for her acute vs chronic hypoxic respiratory failure and COPD. She was seen multiple times throughout the day and was noted to have increasing agitation and refusing to wear her oxygen which was resulting in hypoxia in the low 80's. Due to her agitation, she was given Haldol 0.5mg IV with no improvement. She was later given 0.5mg ativan IV which significantly improved her behaviors. She is seen now while sleeping and is difficult to arouse. She is breathing easily on 3L without distress. Labs today revealed increased serum CO2 and hyperglycemia, otherwise unremarkable. Objective Vital signs: Temperature 97.2 F 02/15/18 08:08 Pulse Rate 73 02/15/18 08:08 Respiratory Rate 16 02/15/18 16:05 Blood Pressure 138/63 02/15/18 08:08 Pulse Oximetry 96 02/15/18 11:54 Height/Weight/BMI: Height 5 ft 2 in Weight 110 lb 3.698 oz Body Mass Index 20.1 Comments: Sleeping - difficult to arouse and arouses briefly but falls back to sleep. - Constitutional Present: no acute distress, well nourished, well developed, thin - Routine HEENT Exam Head: Present: normocephalic, atraumatic ENT: Present: mucous membranes moist, oropharynx clear - Routine Respiratory Exam Present: decreased breath sounds Comments: Decreased breath sounds and shallow breathing without cough or distress noted. - Routine Cardiovascular Exam Present: S1, S2 - Routine Abdominal Exam Present: soft, normoactive bowel sounds, non distended - Routine Extremities Exam Present: no edema, full ROM, pulses intact - Routine Back/Spine/Pelvis Exam Back/Spine: Present: full ROM. Absent: vertebral tenderness - Routine Musculoskeletal Exam Musculoskeletal: Present: no clubbing or cyanosis, moving extremities well - Routine Skin Exam Present: intact, dry, warm Comments: Afebrile. - Routine Neurological Exam Present: moving all extremities Alert and orientated prior to administration of Ativan. On exam, patient is somnolent. - Routine Lymphatic Exam Lymphatic: Absent: lymphedema - Routine Psychiatric Exam Comments: Previously agitated and now somnolent. Results - Labs CBC & Chem 7: 02/14/18 01:01 02/15/18 10:04 Microbiology Results: Microbiology 02/13/18 22:11 Peripheral/Iv Start Blood Culture - Preliminary No Growth After 1 Day 02/13/18 22:11 Peripheral/Iv Start Blood Culture - Preliminary No Growth After 1 Day Assessment and Plan Assessment and Plan: Questionable delirium vs. agitation secondary to hypoxia. -Over the course of the morning and afternoon, the patient became increasingly more agitated and refused to wear her oxygen resulting in pronounced hypoxia. -Patient given Haldol 0.5mg IV x 1 dose and Ativan 0.5mg x 1 dose IV with increased somnolence and resolution of behaviors. -Will consult psychiatry for further evaluation and treatment recommendations. -Initiation of Seroquel 25mg po QHS for increased behaviors. Avoid giving Ativan and/or Haldol with Seroquel. -Monitor respiratory function closely given sedation affects of Seroquel and Ativan. Acute vs. Chronic Hypoxic Respiratory Failure -Continue oxygen as indicated to maintain SAO2 >90%, weaning as able. Suspect undiagnosed oxygen demands prior to admission. Reports that pt has required O2 off/on at nursing facility -CT/CXR on admission not overly consistent with pneumonia - no WBC elevation, procal/CRP negative, minimal sx's reported by pt, afebrile. Continue to monitor. Antibiotics not warranted at this time. -Given increased agitation, will obtain ABG now. -Continue respiratory cares and monitor continuous pulse oximetry. -Blood cultures remain negative x 1 day. COPD -Stable, not suspecting exacerbation Hypothyroid -Cont. home levo Ppx -SCDs Resuscitation Status: Full Code - Time spent with patient Time with patient PN: 35 minutes - Physician Narrative Physician: other (Dr. Solorio) Narrative: Date: 02/15/18 Time: 1722 S: Pt Oriented to self, place and time but yet still saying odd things like she doesn't want to go to [place]. Spoke with pt's daughter in law who said pt is not at her baseline in terms of orientation. Pt answers most questions appropriately but is fixated on "not going to [place]", a place her daughter in law notes the pt has never been. Pt denies any acute complaints but keeps taking her O2 NC off which is dropping her sats. O: Gen: mild distress, AAOx3 Lungs: CTAB, no wheezes Cards: RRR without murmurs A/P: Unclear etiology for hypoxia other than chronic, possibly related to her post polio syndrome. Imaging and labs are not indicative of an infection. Unclear why pt is confused other than hypoxia or hypercapnia. Will do ABG and use Haldol to help calm her down. Will need to be careful with sedatives as we want to avoid intubation. Hospital Course Summary Disclaimer: The visit summary below is not to be considered part of the above Progress Note. Hospital Course: 02/14/18 Pt stable, likely close to baseline. Pt requiring minimal O2 and likely has chronic need. Little to no evidence for infection so will stop all abx and do not suspect copd exacerbation so will stop steroids. 02/15/18 Increased agitation with increased hypoxia as patient refusing to wear oxygen. Ativan and Haldol PRN with improvement of behaviors though resulted in increased sedation. Consult psych for evaluation and treatment recommendations. Initiate seroquel 12.5mg QHS. Monitor closely for increased sedation. Will avoid ativan and/or Haldol with Seroquel. Recheck labs in AM. Obtain ABG now given increased behaviors as suspect delirium.
[2018-02-15] MEDS ORDERED: QUETIAPINE 25 MG TABLET PO SCH ×2 (21:00)
[2018-02-15] MEDS: SIMVASTATIN 40 MG TABLET PO SCH (22:05)
[2018-02-15] MEDS: HALOPERIDOL 5 MG/ML INJECTION IVP PRN (22:50)
[2018-02-15] MEDS ORDERED: HALOPERIDOL 5 MG/ML INJECTION IVP PRN (23:47)
[2018-02-16] MEDS: LEVOTHYROXINE 25 MCG TABLET PO SCH (06:21)
[2018-02-16] MEDS: BUDESONIDE INH.SOLN 0.5mg/2ml NEB AEROSOL SCH ×2 (06:41→18:38)
[2018-02-16] MEDS: ALBUTEROL/IPRATROPIUM 2.5mg-0.5mg/3ml NEB AEROSOL SCH ×5 (06:41→22:39)
[2018-02-16] MEDS: HALOPERIDOL 5 MG/ML INJECTION IVP PRN (07:39)
--- NOTE | 2018-02-16 10:07 | Progress Note ---
- Date 02/16/18 Subjective: Pt recently received Haldol so she is somnolent, not able to provide hx. Nurse reports pt mostly rested overnight and had bipap on but than this am she became agitated and started pulling off things and so was given Haldol. Pt was very agitated yesterday evening and her respiratory status was getting worse so pt was transferred to icu. Pt needs O2 support/Bipap but she does not tolerate it at all without some sort of sedation but sedation puts her at high risk of aspiration and getting intubated. Situation was discussed with daughter in law, who is thought to be DPOA, and she wanted aggressive tx with pt being full code. Objective Vital signs: Temperature 97.6 F 02/16/18 09:48 Pulse Rate 57 L 02/16/18 09:48 Respiratory Rate 22 02/16/18 09:48 Blood Pressure 127/58 02/16/18 05:00 Pulse Oximetry 98 02/16/18 09:48 Height/Weight/BMI: Height 5 ft 2 in Weight 50 kg Body Mass Index 20.1 - Constitutional Present: no acute distress - Routine HEENT Exam Head: Present: normocephalic, atraumatic - Routine Respiratory Exam Present: CTA bilaterally. Absent: wheezes - Routine Cardiovascular Exam Present: no murmur, tachycardia - Routine Abdominal Exam Present: soft, non distended, non tender - Routine Extremities Exam Present: no edema. Absent: cyanosis, clubbing - Routine Skin Exam Present: intact, dry. Absent: erythema - Routine Neurological Exam Present: altered mental status Results - Labs CBC & Chem 7: 02/16/18 04:32 02/16/18 04:32 Microbiology Results: Microbiology 02/13/18 22:11 Peripheral/Iv Start Blood Culture - Preliminary No Growth After 2 Days 02/13/18 22:11 Peripheral/Iv Start Blood Culture - Preliminary No Growth After 2 Days - ABG Interpretation ABG results: 02/15/18 02/15/18 02/16/18 17:28 22:08 09:06 ABG pH 7.275 L 7.359 7.347 L ABG pCO2 97 H* 76 H* 85 H* ABG pO2 90.7 63.3 L 66.2 L ABG HCO3 44.8 H 42.8 H 46.8 H ABG Total CO2 47.7 H 45.1 H 49.4 H ABG O2 Saturation 94.8 L 89.4 L 89.9 L ABG Base Excess 11.9 H 12.7 H 15.8 H Assessment and Plan Assessment and Plan: Delirium -Hypercapnia vs. Hypoxia -re-order UA and CXR -No source of infection currently suspected-->initial UA, CXR, resp viral panel , procal, CRP, all negative, no WBC count elevation -Electrolytes stable, TSH wnls, trop neg, -Over the course of the yesterday, the patient became increasingly more agitated and refused to wear her oxygen resulting in pronounced hypoxia. -Using Haldol first and if need be, ativan PRN -Monitor respiratory function closely -Can consider CT head if no improvement with improvement of resp status Hypercapnic Hypoxic Respiratory failure -Unclear etiology, possible worsening of post polio syndrome?, unclear acute vs. chronic picture in terms of hypoxia -CT/CXR on admission not overly consistent with pneumonia - no WBC elevation, procal/CRP negative, minimal sx's reported by pt, afebrile. Continue to monitor. Antibiotics not warranted at this time. -COPD exacerbation not consistent with clinical picture -Cont. with bipap, repeat ABGs, will consult Pulm COPD -Stable, not suspecting exacerbation Hypothyroid -Cont. home levo Ppx -SCDs - Physician Narrative Narrative: Date: 02/16/18 Time: 1001 Hospital Course Summary Disclaimer: The visit summary below is not to be considered part of the above Progress Note. Hospital Course: 02/14/18 Pt stable, likely close to baseline. Pt requiring minimal O2 and likely has chronic need. Little to no evidence for infection so will stop all abx and do not suspect copd exacerbation so will stop steroids. 02/15/18 Increased agitation with increased hypoxia as patient refusing to wear oxygen. Ativan and Haldol PRN with improvement of behaviors though resulted in increased sedation. Consult psych for evaluation and treatment recommendations. Initiate seroquel 12.5mg QHS. Monitor closely for increased sedation. Will avoid ativan and/or Haldol with Seroquel. Recheck labs in AM. Obtain ABG now given increased behaviors as suspect delirium. 02/16/18 Pt had increased agitation yesterday evening and had to be transferred to icu, pt was not tolerating NC or bipap and hypoxia and hypercapnia was getting worse. Pt had to be get chemical restraints with haldol and ativan and then bipap was used. Discussed case with daughter in law and she wanted everything done including intubation. Will consult pulm today since not making much progress with pulm status.
--- NOTE | 2018-02-16 10:31 | XRay Report ---
Indication: hypoxia, resp distress PROCEDURE: XR chest 1V: Encounter: Initial Comparison: February 13, 2018 Findings: No focal consolidative pneumonia, gross pleural effusion or pneumothorax. Chronic elevation of the left hemidiaphragm. Mediastinal contours are distorted by the severe rotoscoliosis. Cardiac silhouette is not obviously changed. Pulmonary vascular markings are similar to the prior study. Impression: No focal pneumonia or overt congestive failure. .
--- NOTE | 2018-02-16 11:14 | Neuropsychiatric Consult ---
[facility] Date: 02/16/18 Requesting Physician: Rut Solorio Reason for Consultation: Agitation Start Time: 10:40 Stop Time: 11:20 History of Present Illness: Patient is an 87-year-old female who was admitted to [facility] on 02/13/18 with SOA and increasing weakness over prior 2 days. Patient has a hx of polio COPD and has now been diagnosed with the following primary team: Hypercapnic Hypoxic Respiratory failure -Unclear etiology, possible worsening of post polio syndrome?, unclear acute vs. chronic picture in terms of hypoxia -CT/CXR on admission not overly consistent with pneumonia - no WBC elevation, procal/CRP negative, minimal sx's reported by pt, afebrile. Continue to monitor. Antibiotics not warranted at this time. -COPD exacerbation not consistent with clinical picture Patient has had ongoing hypoxia and episodic bradycardia with PACs and PVCs. Psychiatry was consulted for med recommendations due to patient's agitation and possible delirium, recently removing telemetry monitoring, not tolerating Bipap. Patient was given IV Haldol 0.5mg and Ativan 0.25mg this AM, which was effective in relaxing patient per nurse. At time of attempted interview, patient was sedated/sleeping and thus tolerating Bipap well. [facility] Patient Stated Medical History Cataracts Yes: both Other HEENT Yes: ringing of RT ear Heart Murmur Yes Other Cardiology Yes: valve that sticks Bronchitis Yes: past Pneumonia Yes: past X3 times Other Respiratory Yes: HX of polio affected lungs Other Musculoskeletal Yes: arthritis Medical History Updates: -post-polio syndrome. -seasonal allergies. -frequent symptomatic PVC's. -COPD. -hyperlipidemia. -hypothyroid Surgical History: -thumb surgery. -breast surgery (not for cancer). -nose surgery. -appendectomy Family History Updates: -mother and father both . - Social History Smoking status: Former smoker Packs-years: 30 (Pt smoked from ages 20 to 50 approx.) Alcohol intake: never Alcohol intake frequency: does not drink Housing: house Household members: family Current occupational status: retired Current residence: Longterm Social history: Unable to obtain further hx from patient as she was sedated and wearing Bipap at time of attempted interview. Review of Systems ROS unobtainable: due to mental status Mental Status Exam Vitals: Last Vital Signs Temp 97.6 F 02/16/18 09:48 Pulse 58 L 02/16/18 10:30 Resp 22 02/16/18 10:39 BP 123/67 02/16/18 10:00 Pulse Ox 99 02/16/18 10:39 Height: 1.57 m Weight: 49.9 kg - Mental Status Exam Muscle Strength/Tone: Weak (per patient report) Dressing: Other (hospital gown) Grooming: Disheveled Attitude: Other (unable to assess, intermittently uncooperative per nursing staff) Motor Activity: Other (sedated at time of attempted interview) Suicidal Ideation: None Insight: Impaired Judgement: Impaired Impulse Control: Poor - Laboratory Result Diagrams: 02/16/18 04:32 02/16/18 04:32 Laboratory Results - last 24 hr 02/15/18 02/15/18 02/16/18 17:28 22:08 04:32 WBC 8.2 RBC 4.76 Hgb 14.9 Hct 49.4 H MCV 103.8 H MCH 31.3 MCHC 30.2 L RDW Std Deviation 48.2 Plt Count 195 MPV 9.6 Immature Gran % (Auto) 0.1 Neut % (Auto) 79.4 H Lymph % (Auto) 9.1 L Burke % (Auto) 11.1 H Eos % (Auto) 0.2 Baso % (Auto) 0.1 Neut # (Auto) 6.5 Lymph # (Auto) 0.8 L Burke # (Auto) 0.9 H Eos # (Auto) 0.0 Baso # (Auto) 0.0 Abs Immat Gran (auto) 0.01 Sample Site R radial R radial Alveolar Air PO2 118.4 ABG pH 7.275 L 7.359 ABG pCO2 97 H* 76 H* ABG pO2 90.7 63.3 L ABG HCO3 44.8 H 42.8 H ABG Total CO2 47.7 H 45.1 H ABG O2 Saturation 94.8 L 89.4 L ABG Base Excess 11.9 H 12.7 H Modified Brayan Test Positive Positive A-a Gradient 55.1 a/A Ratio 53.5 O2 Delivery Method Cannula Bipap Vent Rate 10 FiO2 30 FiO2 (liters per min) 3 Inspiratory Time 1 PEEP 6 Inspiratory Pressure 16 Turbidity Sodium Potassium Chloride Carbon Dioxide Anion Gap BUN Creatinine GFR Calculation BUN/Creatinine Ratio Glucose Calculated Osmolality Calcium Icterus Index Specimen Hemolysis 02/16/18 02/16/18 04:32 09:06 WBC RBC Hgb Hct MCV MCH MCHC RDW Std Deviation Plt Count MPV Immature Gran % (Auto) Neut % (Auto) Lymph % (Auto) Burke % (Auto) Eos % (Auto) Baso % (Auto) Neut # (Auto) Lymph # (Auto) Burke # (Auto) Eos # (Auto) Baso # (Auto) Abs Immat Gran (auto) Sample Site Alveolar Air PO2 108.1 ABG pH 7.347 L ABG pCO2 85 H* ABG pO2 66.2 L ABG HCO3 46.8 H ABG Total CO2 49.4 H ABG O2 Saturation 89.9 L ABG Base Excess 15.8 H Modified Brayan Test Not applicable A-a Gradient 41.9 a/A Ratio 61.2 O2 Delivery Method Bipap Vent Rate FiO2 30 FiO2 (liters per min) Inspiratory Time PEEP 4 Inspiratory Pressure Turbidity < 20 Sodium 140 Potassium 3.6 D Chloride 90 L Carbon Dioxide 45 H* Anion Gap 5 BUN 19.0 H Creatinine 0.4 L GFR Calculation 151 BUN/Creatinine Ratio 48 H Glucose 91 Calculated Osmolality 271 Calcium 8.6 Icterus Index < 2 Specimen Hemolysis < 15 Assessment and Plan Assessment: Delirium suspected by primary team, unable to confirm as patient was not available for interview. Patient would certainly have risk factors for delirium given respiratory failure. In regards to medication management for agitation, would consider using Precedex drip, which does not cause respiratory sedation and is less deliriogenic than other options. Improvement of underlying medical status will be most helpful for agitation/delirium. Otherwise, would continue current management with Haldol 0.5mg IV q 4 hrs PRN and lorazepam 0.25mg IV q 6 hrs PRN. May schedule same dose of Haldol BID or TID if agitation continues. Could consider Seroquel 25-50mg q HS or melatonin at HS though sleep cycle disruption is characteristic of delirium and may be expected in such a patient. Will continue to follow, please contact me if you have further questions. Thank you for this consult.
[2018-02-16] MEDS: FLECAINIDE 100 MG TABLET PO SCH ×2 (13:36→22:15)
[2018-02-16] MEDS: APREMILAST 30 MG PO SCH ×2 (13:36→22:14)
[2018-02-16] MEDS: DOCUSATE SODIUM 100 MG CAPSULE PO SCH (13:36)
--- NOTE | 2018-02-16 14:56 | Pulmonology Consult Note ---
History of Present Illness Consult date: 02/16/18 Requesting physician: Rut Solorio Reason for consult: COPD Chief complaint: short of breath History of present illness: HPI: Jessica is an 87 year old lady who is a patient of a local [place]. 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 She was admitted with shortness of breath and congestion on 02.14.18. She reported significant weakness and cough. She was [place] [facility] [place] failure. ABG on admission revealed pH 7.27, pCO2 97, paO2 90 on 3 lpm O2 by nasal cannula. She was seen today while on BIPAP 20/6, rate 22, Fio2 35%. ABG does show improvement on these settings. She was a smoker but states she quit. She is fairly lethargic today. She received ativan and haldol earlier today HPI From admission: Jessica is an 87 y/o female w/ h/o CHF, COPD, Post-polio syndrome who presents to ER at [facility] [place] EMS [place] w/ cc of SOA over the past couple of days and generalized weakness. Patient denies f/c/s, chest pain, FAUSTIN, dysphagia(thought does have meat cut up to eat it) and denies change in bowel/bladder function. She states she has been gradually more SOA over the past few days and has found it more difficult to transfer d/t overall weakness. Sats purportedly in the 70s at the long term so EMS placed 2 L/min O2 per NC and sats are now in the 90s. In ER patient had CXR that per prelim report was generally unchanged from prior CXR, and she received a DuoNeb and SoluMedrol 125mg IV x one and per ER provider 's report she is resting more comfortably. CT scan chest/angio showed no PE, however showed RLL infiltrates and BEBE infiltrates vs. atelectasis. WBC is 8.0 w/ 84% neutrophils and troponin is 0.025; the pro-BNP = 1462, BUN/Cr = 17/0.5. TCO2 on BMP =40. Patient to be admitted to the Hospitalist service for further evaluation and treatment. Vancomycin and Zosyn ordered Past Medical History Medical History Updates: -post-polio syndrome. -seasonal allergies. -frequent symptomatic PVC's. -COPD. -hyperlipidemia. -hypothyroid Surgical History: -thumb surgery. -breast surgery (not for cancer). -nose surgery. -appendectomy Family History: No Significant Family History - Social History Smoking status: Former smoker Current residence: Apartment/Private Home Review of Systems ROS unobtainable: due to mental status [facility] Patient Stated Medical History Cataracts Yes: both Other HEENT Yes: ringing of RT ear Heart Murmur Yes Other Cardiology Yes: valve that sticks Bronchitis Yes: past Pneumonia Yes: past X3 times Other Respiratory Yes: HX of polio affected lungs Other Musculoskeletal Yes: arthritis Medical History Updates: -post-polio syndrome. -seasonal allergies. -frequent symptomatic PVC's. -COPD. -hyperlipidemia. -hypothyroid Surgical History: -thumb surgery. -breast surgery (not for cancer). -nose surgery. -appendectomy Family History Updates: -mother and father both . - Social History Smoking status: Former smoker Packs-years: 30 (Pt smoked from ages 20 to 50 approx.) Alcohol intake: never Alcohol intake frequency: does not drink Housing: house Household members: family Current occupational status: retired Current residence: [place] Medications Home Medications Medication Instructions Recorded Confirmed Type Albuterol HFA Inhaler [Ventolin 2 puff ORAL INH Q6H PRN 12/23/17 02/13/18 History Hfa 90 mcg/actuation] Fluticasone/Salmeterol 250/50 1 puff INH BID PRN 12/23/17 02/13/18 History [Advair 250-50 Diskus] Levothyroxine Tab [Synthroid] 12.5 mcg PO ACB 12/23/17 02/13/18 History Simvastatin [Zocor] 40 mg PO HS 12/23/17 02/13/18 History Acetaminophen [Tylenol] 650 mg PO Q5H PRN tab 01/01/18 02/13/18 Rx Docusate Sodium [Colace] 100 mg PO DAILY cap 01/01/18 02/13/18 Rx Sennosides [Senna Lax] 8.6 mg PO BID PRN tab 01/01/18 02/13/18 Rx Apremilast [Otezla] 30 mg PO BID 02/13/18 02/13/18 History Flecainide [Tambocor] 100 mg PO BID 02/13/18 02/13/18 History guaiFENesin [Mucinex] 600 mg PO BID 02/13/18 02/13/18 History Allergies Allergy/AdvReac Type Severity Reaction Status Date / Time rabbit dander Allergy Intermediate ALLERGIC Verified 02/13/18 16:40 CONTACT DERMATITIS aspirin AdvReac Intermediate VOMITING Verified 02/13/18 16:40 Mushrooms Allergy Intermediate HIVES Uncoded 12/23/17 16:46 Exam Vital signs: Temperature 97.6 F 02/16/18 09:48 Pulse Rate 58 L 02/16/18 10:30 Respiratory Rate 22 02/16/18 10:39 Blood Pressure 123/67 02/16/18 10:00 Pulse Oximetry 98 02/16/18 13:50 - Constitutional no acute distress, thin Comments: chronically ill appearing - Routine HEENT Exam Head: Present: normocephalic, atraumatic Eye: Absent: conjunctival icterus ENT: Present: mucous membranes moist Nose: moist mucous membranes - Routine Neck Exam Present: supple - Routine Respiratory Exam Present: decreased breath sounds, prolonged expiratory phase. Absent: wheezes - Routine Cardiovascular Exam Present: RRR - Routine Abdominal Exam Present: soft. Absent: guarding - Routine Extremities Exam Absent: cyanosis, clubbing, edema - Routine Back/Spine/Pelvis Exam Back/Spine: Present: scoliosis, kyphosis - Routine Skin Exam Absent: cyanosis, rash - Routine Neurological Exam Present: altered mental status. Absent: alert somnolent answers simple questions Results - Laboratory Findings CBC and BMP: 02/16/18 04:32 02/16/18 04:32 ABG ABG pH 7.344 (7.350-7.450) L 02/16/18 12:09 ABG pCO2 83 MMHG (34.0-45.0) H* 02/16/18 12:09 ABG pO2 93.1 MMHG (80.0-100.0) 02/16/18 12:09 ABG O2 Saturation 96.1 % (95.0-98.0) 02/16/18 12:09 Abnormal lab findings: Abnormal Labs 02/13/18 02/14/18 02/14/18 20:36 01:01 05:12 Hgb 16.1 H Hct 51.3 H MCV 100.8 H MCHC Neut % (Auto) Lymph % (Auto) [place] % (Auto) Lymph # (Auto) [place] # (Auto) Neutrophils % (Manual) 96.0 H Lymphocytes % (Manual) 3.0 L Lymphocytes # (Manual) 0.2 L ABG pH ABG pCO2 ABG pO2 ABG HCO3 ABG Total CO2 ABG O2 Saturation ABG Base Excess Chloride 89 L Carbon Dioxide 38 H BUN Creatinine 0.4 L BUN/Creatinine Ratio 38 H Glucose 141 H Specimen Hemolysis 46 H Ur Specific [place] 1.010 L Urine Protein Urine Ketones Trace A Urine Occult Blood 1+ A Urine Bilirubin Urine Bacteria Trace H 02/15/18 02/15/18 02/15/18 10:04 17:28 22:08 Hgb Hct MCV MCHC Neut % (Auto) Lymph % (Auto) [place] % (Auto) Lymph # (Auto) [place] # (Auto) Neutrophils % (Manual) Lymphocytes % (Manual) Lymphocytes # (Manual) ABG pH 7.275 L ABG pCO2 97 H* 76 H* ABG pO2 63.3 L ABG HCO3 44.8 H 42.8 H ABG Total CO2 47.7 H 45.1 H ABG O2 Saturation 94.8 L 89.4 L ABG Base Excess 11.9 H 12.7 H Chloride 89 L Carbon Dioxide 42 H* BUN 18.0 H Creatinine 0.4 L BUN/Creatinine Ratio 45 H Glucose 158 H Specimen Hemolysis 131 H Ur Specific [place] Urine Protein Urine Ketones Urine Occult Blood Urine Bilirubin Urine Bacteria 02/16/18 02/16/18 02/16/18 04:32 04:32 09:06 Hgb Hct 49.4 H MCV 103.8 H MCHC 30.2 L Neut % (Auto) 79.4 H Lymph % (Auto) 9.1 L [place] % (Auto) 11.1 H Lymph # (Auto) 0.8 L [place] # (Auto) 0.9 H Neutrophils % (Manual) Lymphocytes % (Manual) Lymphocytes # (Manual) ABG pH 7.347 L ABG pCO2 85 H* ABG pO2 66.2 L ABG HCO3 46.8 H ABG Total CO2 49.4 H ABG O2 Saturation 89.9 L ABG Base Excess 15.8 H Chloride 90 L Carbon Dioxide 45 H* BUN 19.0 H Creatinine 0.4 L BUN/Creatinine Ratio 48 H Glucose Specimen Hemolysis Ur Specific [place] Urine Protein Urine Ketones Urine Occult Blood Urine Bilirubin Urine Bacteria 02/16/18 02/16/18 11:42 12:09 Hgb Hct MCV MCHC Neut % (Auto) Lymph % (Auto) [place] % (Auto) Lymph # (Auto) [place] # (Auto) Neutrophils % (Manual) Lymphocytes % (Manual) Lymphocytes # (Manual) ABG pH 7.344 L ABG pCO2 83 H* ABG pO2 ABG HCO3 45.2 H ABG Total CO2 47.7 H ABG O2 Saturation ABG Base Excess 14.2 H Chloride Carbon Dioxide BUN Creatinine BUN/Creatinine Ratio Glucose Specimen Hemolysis Ur Specific [place] >=1.030 H Urine Protein Trace A Urine Ketones Trace A Urine Occult Blood Urine Bilirubin 1+ A Urine Bacteria - Diagnostic Findings Chest x-ray: report reviewed, image reviewed Assessment and Plan (1) Acute and chronic respiratory failure with hypercapnia Status: Acute Assessment and plan: NIPPV is definitely indicated in this case. I recommend current treatment with BIPAP ST IPAP 15-20, EPAP 5-8, rate 12-22. titrate FiO2 to keep her sat >90%. I would use this with sleep and as needed to assist with ventilation. When off BIPAP on nc O2, repeat ABG to ensure that she does not have worsening hypercapnia. Current Visit: Yes (2) COPD (chronic obstructive pulmonary disease) Status: Acute Assessment and plan: significant smoking history. recommend nebulized bronchodilator (albuterol/ipratropium) q4h [place]. budesonide 0.5mg BID neb Current Visit: Yes (3) Restrictive lung disease due to kyphoscoliosis Status: Acute Assessment and plan: related to post-polio syndrome, thoracic cage abnormalities. contributing to her hypercapnic respiratory failure Current Visit: Yes - Time Spent With Patient Total time spent is greater than 50% in coordination of care (as documented) at patient's floor/unit and/or counseling patient: 25 - 35 minutes
[2018-02-16] MEDS: MORPHINE SULFATE 2mg INJECTION IVP PRN (21:29)
[2018-02-17] MEDS: NS 1,000 ML IV SCH ×2 (01:20→23:25)
[2018-02-17] MEDS: MORPHINE SULFATE 2mg INJECTION IVP PRN (04:02)
[2018-02-17] MEDS: ALBUTEROL/IPRATROPIUM 2.5mg-0.5mg/3ml NEB AEROSOL SCH ×6 (06:28→23:27)
[2018-02-17] MEDS: BUDESONIDE INH.SOLN 0.5mg/2ml NEB AEROSOL SCH ×2 (07:33→23:27)
[2018-02-17] MEDS: LEVOTHYROXINE 25 MCG TABLET PO SCH (08:31)
[2018-02-17] MEDS: APREMILAST 30 MG PO SCH ×2 (08:32→23:27)
[2018-02-17] MEDS: DOCUSATE SODIUM 100 MG CAPSULE PO SCH (08:32)
[2018-02-17] MEDS: FLECAINIDE 100 MG TABLET PO SCH ×2 (08:32→23:27)
--- NOTE | 2018-02-17 09:00 | Pulmonology Progress Note ---
Subjective Principal diagnosis: respiratory failure Interval history: Pt currently in bed on 4L per [place], somnolent but opens eyes some to voice. No distress or pain noted. Family making the patient comfort care, per RN pt not tolerating bipap and had increasingly gotten more confused yesterday. Exam Vital signs: Temperature 96.8 F 02/16/18 12:00 Pulse Rate 113 H 02/17/18 06:00 Respiratory Rate 26 H 02/17/18 07:33 Blood Pressure 124/64 02/17/18 06:00 Pulse Oximetry 98 02/17/18 07:33 Inpatient Medications: Generic Name Dose Route Start Last Admin Trade Name Freq PRN Reason Stop Dose Admin Acetaminophen 650 mg 02/13/18 20:03 02/15/18 04:14 Tylenol PO 650 mg Q5H PRN Administration Discomfort Albuterol Sulfate 2.5 mg 02/13/18 20:50 Proventil Neb (0.083%) AEROSOL Q4H PRN Cough, wheezing and/or SOA Albuterol/Ipratropium 3 ml 02/16/18 11:00 02/17/18 07:33 Duoneb AEROSOL 3 ml Q4H BRIAN Administration Budesonide 0.5 mg 02/14/18 07:00 02/17/18 07:33 Pulmicort Inhalation AEROSOL 0.5 mg RTBID BRIAN Administration Docusate Sodium 100 mg 02/14/18 09:00 02/17/18 08:32 Colace PO Not Given DAILY BRIAN Flecainide Acetate 100 mg 02/13/18 21:00 02/17/18 08:32 Tambocor PO Not Given BID BRIAN Guaifenesin 600 mg 02/13/18 20:03 Mucinex La PO BID PRN Haloperidol Lactate 0.5 mg 02/15/18 15:37 02/16/18 07:39 Haldol IVP 0.5 mg Q4H PRN Administration Sodium Chloride 1,000 mls @ 75 mls/hr 02/17/18 01:30 02/17/18 01:20 Normal Saline IV 75 mls/hr .[id number] BRIAN Administration Levothyroxine Sodium 12.5 mcg 02/14/18 06:30 02/17/18 08:31 Synthroid PO Not Given ACB BRIAN Lorazepam 0.25 mg 02/15/18 16:31 02/16/18 22:13 Ativan Inj IVP 0.25 mg Q6H PRN Administration Lorazepam 0.25 mg 02/16/18 21:22 02/17/18 02:13 Ativan Inj IVP 0.25 mg Q2H PRN Administration Morphine Sulfate 2 mg 02/17/18 07:30 Morphine Sulfate Inj IVP Q2H PRN Pain Pom-Apremilast [ 30 mg 02/13/18 21:00 02/17/18 08:32 Otezla] 30 Mg Tablet PO Not Given BID BRIAN Sodium Chloride 10 - 80 ml 02/13/18 16:59 02/13/18 21:33 Iv Flush IVF 20 ml PRN PRN Administration Flushing Discontinued Medications Generic Name Dose Route Start Last Admin Trade Name Freq PRN Reason Stop Dose Admin Albuterol/Ipratropium 3 ml 02/13/18 18:23 02/13/18 18:32 Duoneb AEROSOL 02/13/18 18:24 3 ml O ONE Administration Albuterol/Ipratropium 3 ml 02/14/18 07:00 02/16/18 06:41 Duoneb AEROSOL 3 ml RTQID BRIAN Administration Haloperidol Lactate 0.5 mg 02/15/18 14:18 02/15/18 14:25 Haldol IVP 02/15/18 14:19 0.5 mg O ONE Administration Haloperidol Lactate 2 mg 02/15/18 23:10 02/15/18 23:11 Haldol IVP 02/15/18 23:11 2 mg O ONE Administration Haloperidol Lactate 5 mg 02/15/18 23:47 Haldol IVP O PRN Haloperidol Lactate 5 mg 02/15/18 23:49 02/15/18 23:40 Haldol IVP 02/15/18 23:50 5 mg O ONE Administration Vancomycin HCl 1,000 mg/ 250 mls @ 250 mls/hr 02/13/18 20:29 02/13/18 23:15 Sodium Chloride IV 02/13/18 20:30 Infused O ONE Infusion Piperacillin Sod/Tazobactam 100 mls @ 200 mls/hr 02/13/18 20:45 02/14/18 10: 25 Sod 3.375 gm/ Sodium Chloride IV Infused Q6H BRIAN Infusion Lorazepam 0.5 mg 02/15/18 15:36 02/15/18 16:05 Ativan Inj IVP 0.5 mg Q6H PRN Administration Methylprednisolone Sodium Succinate 125 mg 02/13/18 18:23 02/13/18 18:29 Solu-Medrol IVP 02/13/18 18:24 125 mg O ONE Administration Methylprednisolone Sodium Succinate 125 mg 02/14/18 01:00 02/14/18 09:55 Solu-Medrol IVP 125 mg Q8HR BRIAN Administration Morphine Sulfate 2 mg 02/16/18 21:23 02/17/18 04:02 Morphine Sulf 2 Mg Inj IVP 2 mg Q2H PRN Administration Pain Quetiapine Fumarate 25 mg 02/15/18 21:00 Seroquel PO HS BRIAN Quetiapine Fumarate 12.5 mg 02/15/18 21:00 02/15/18 22:05 Seroquel PO Not Given HS BRIAN Simvastatin 40 mg 02/13/18 21:00 02/15/18 22:05 Zocor PO Not Given HS BRIAN - Constitutional no acute distress, average body habitus, somnolent - Routine HEENT Exam Head: Present: normocephalic, atraumatic Eye: Present: EOMI, PERRL - Routine Neck Exam Present: supple, trachea midline - Routine Respiratory Exam Present: decreased breath sounds. Absent: accessory muscle use, patient mechanically ventilated - Routine Cardiovascular Exam Present: S1, S2, tachycardia - Routine Abdominal Exam Present: soft, normoactive bowel sounds - Routine Extremities Exam Present: no edema, non tender - Routine Skin Exam Present: intact, dry - Routine Neurological Exam Pt somnolent, opens eyes slightly to voice - Routine Psychiatric Exam Present: unable to assess - Urinary Catheter Management Urethral Cath placed during this visit: yes, but has since been removed by the nurse Insertion date: 02/16/18 Insertion time: 21:40 Removal date: 02/15/18 Removal time: 19:00 Results - Laboratory Findings Laboratory: Laboratory Results - last 48 hr 02/15/18 02/15/18 02/15/18 10:04 17:28 22:08 WBC RBC Hgb Hct MCV MCH MCHC RDW Std Deviation Plt Count MPV Immature Gran % (Auto) Neut % (Auto) Lymph % (Auto) [place] % (Auto) Eos % (Auto) Baso % (Auto) Neut # (Auto) Lymph # (Auto) [place] # (Auto) Eos # (Auto) Baso # (Auto) Abs Immat Gran (auto) Sample Site R radial R radial Alveolar Air PO2 118.4 ABG pH 7.275 L 7.359 ABG pCO2 97 H* 76 H* ABG pO2 90.7 63.3 L ABG HCO3 44.8 H 42.8 H ABG Total CO2 47.7 H 45.1 H ABG O2 Saturation 94.8 L 89.4 L ABG Base Excess 11.9 H 12.7 H Modified Brayan Test Positive Positive A-a Gradient 55.1 a/A Ratio 53.5 O2 Delivery Method Cannula Bipap Vent Rate 10 FiO2 30 FiO2 (liters per min) 3 Inspiratory Time 1 PEEP 6 Inspiratory Pressure 16 Turbidity < 20 Sodium 138 Potassium 4.6 Chloride 89 L Carbon Dioxide 42 H* Anion Gap 7 BUN 18.0 H Creatinine 0.4 L GFR Calculation 151 BUN/Creatinine Ratio 45 H Glucose 158 H Calculated Osmolality 271 Calcium 8.9 Phosphorus 3.3 Icterus Index < 2 Albumin 3.6 Specimen Hemolysis 131 H Ur Collection Type Urine Color Urine Clarity Urine pH Ur Specific [place] Urine Protein Urine Glucose (UA) Urine Ketones Urine Occult Blood Urine Nitrate Urine Bilirubin Urine Urobilinogen Ur Leukocyte Esterase Urinalysis Comment 02/16/18 02/16/18 02/16/18 04:32 04:32 09:06 WBC 8.2 RBC 4.76 Hgb 14.9 Hct 49.4 H MCV 103.8 H MCH 31.3 MCHC 30.2 L RDW Std Deviation 48.2 Plt Count 195 MPV 9.6 Immature Gran % (Auto) 0.1 Neut % (Auto) 79.4 H Lymph % (Auto) 9.1 L [place] % (Auto) 11.1 H Eos % (Auto) 0.2 Baso % (Auto) 0.1 Neut # (Auto) 6.5 Lymph # (Auto) 0.8 L [place] # (Auto) 0.9 H Eos # (Auto) 0.0 Baso # (Auto) 0.0 Abs Immat Gran (auto) 0.01 Sample Site Alveolar Air PO2 108.1 ABG pH 7.347 L ABG pCO2 85 H* ABG pO2 66.2 L ABG HCO3 46.8 H ABG Total CO2 49.4 H ABG O2 Saturation 89.9 L ABG Base Excess 15.8 H Modified Brayan Test Not applicable A-a Gradient 41.9 a/A Ratio 61.2 O2 Delivery Method Bipap Vent Rate FiO2 30 FiO2 (liters per min) Inspiratory Time PEEP 4 Inspiratory Pressure Turbidity < 20 Sodium 140 Potassium 3.6 D Chloride 90 L Carbon Dioxide 45 H* Anion Gap 5 BUN 19.0 H Creatinine 0.4 L GFR Calculation 151 BUN/Creatinine Ratio 48 H Glucose 91 Calculated Osmolality 271 Calcium 8.6 Phosphorus Icterus Index < 2 Albumin Specimen Hemolysis < 15 Ur Collection Type Urine Color Urine Clarity Urine pH Ur Specific [place] Urine Protein Urine Glucose (UA) Urine Ketones Urine Occult Blood Urine Nitrate Urine Bilirubin Urine Urobilinogen Ur Leukocyte Esterase Urinalysis Comment 02/16/18 02/16/18 02/16/18 11:42 12:09 16:59 WBC RBC Hgb Hct MCV MCH MCHC RDW Std Deviation Plt Count MPV Immature Gran % (Auto) Neut % (Auto) Lymph % (Auto) [place] % (Auto) Eos % (Auto) Baso % (Auto) Neut # (Auto) Lymph # (Auto) [place] # (Auto) Eos # (Auto) Baso # (Auto) Abs Immat Gran (auto) Sample Site L brach L brach Alveolar Air PO2 144.7 ABG pH 7.344 L 7.322 L ABG pCO2 83 H* 85 H* ABG pO2 93.1 59.6 L ABG HCO3 45.2 H 43.8 H ABG Total CO2 47.7 H 46.4 H ABG O2 Saturation 96.1 86.2 L ABG Base Excess 14.2 H 12.8 H Modified Brayan Test A-a Gradient 51.6 a/A Ratio 64.3 O2 Delivery Method Bipap Cannula Vent Rate FiO2 35 FiO2 (liters per min) 3 Inspiratory Time PEEP 6 Inspiratory Pressure Turbidity Sodium Potassium Chloride Carbon Dioxide Anion Gap BUN Creatinine GFR Calculation BUN/Creatinine Ratio Glucose Calculated Osmolality Calcium Phosphorus Icterus Index Albumin Specimen Hemolysis Ur Collection Type Urine, cath straight Urine Color Arin Urine Clarity Clear Urine pH 5.5 Ur Specific [place] >=1.030 H Urine Protein Trace A Urine Glucose (UA) Negative Urine Ketones Trace A Urine Occult Blood Negative Urine Nitrate Negative Urine Bilirubin 1+ A Urine Urobilinogen 1.0 Ur Leukocyte Esterase Negative Urinalysis Comment Microscopic not ind. 02/17/18 02/17/18 02/17/18 04:32 04:32 08:31 WBC 7.1 RBC 5.00 Hgb 15.4 Hct 52.5 H MCV 105.0 H MCH 30.8 MCHC 29.3 L RDW Std Deviation 50.3 H Plt Count 166 MPV 9.5 Immature Gran % (Auto) 0.1 Neut % (Auto) 79.3 H Lymph % (Auto) 11.0 L [place] % (Auto) 9.1 H Eos % (Auto) 0.4 Baso % (Auto) 0.1 Neut # (Auto) 5.6 Lymph # (Auto) 0.8 L [place] # (Auto) 0.7 Eos # (Auto) 0.0 Baso # (Auto) 0.0 Abs Immat Gran (auto) 0.01 Sample Site Alveolar Air PO2 ABG pH 7.153 L* ABG pCO2 122 H* ABG pO2 120.5 H ABG HCO3 42.8 H ABG Total CO2 46.6 H ABG O2 Saturation 96.6 ABG Base Excess 7.8 H Modified Brayan Test Positive A-a Gradient a/A Ratio O2 Delivery Method Cannula Vent Rate FiO2 FiO2 (liters per min) Inspiratory Time PEEP Inspiratory Pressure Turbidity < 20 Sodium 142 Potassium 3.9 Chloride 93 L Carbon Dioxide 45 H* Anion Gap 4 L BUN 18.0 H Creatinine 0.4 L GFR Calculation 151 BUN/Creatinine Ratio 45 H Glucose 88 Calculated Osmolality 274 Calcium 8.5 Phosphorus 4.0 Icterus Index < 2 Albumin 3.4 L Specimen Hemolysis < 15 Ur Collection Type Urine Color Urine Clarity Urine pH Ur Specific [place] Urine Protein Urine Glucose (UA) Urine Ketones Urine Occult Blood Urine Nitrate Urine Bilirubin Urine Urobilinogen Ur Leukocyte Esterase Urinalysis Comment Assessment and Plan - Assessment and Plan Acute on chronic Hypercapnic Respiratory Failure COPD Restrictive disease secondary to kyphoscoliosis Plan: Pt currently on O2 at 4L per [place] and appears comfortable. ABG this am 7.15/122 on 4L, family decided on comfort care measures, primary aware. Pulm to sign off. - Time Spent With Patient Total time spent is greater than 50% in coordination of care (as documented) at patient's floor/unit and/or counseling patient: less than 15 minutes
[2018-02-17] MEDS: MORPHINE SULFATE 4mg INJECTION IVP PRN ×5 (13:49→23:23)
--- NOTE | 2018-02-17 14:47 | Progress Note ---
- Date 02/17/18 Subjective: Pt not responding to verbal stimuli this am. Pt got ativan overnight. Pt not tolerating bipap very well. Objective Vital signs: Temperature 97.5 F 02/17/18 07:30 Pulse Rate 67 02/17/18 12:00 Respiratory Rate 38 H 02/17/18 13:49 Blood Pressure 156/71 H 02/17/18 10:08 Pulse Oximetry 100 02/17/18 11:40 Height/Weight/BMI: Height 5 ft 2 in Weight 51.2 kg Body Mass Index 20.1 - Constitutional Present: no acute distress - Routine HEENT Exam Head: Present: normocephalic, atraumatic Eye: Present: EOMI ENT: Present: mucous membranes moist - Routine Respiratory Exam Present: CTA bilaterally. Absent: wheezes, crackles - Routine Cardiovascular Exam Present: bradycardia, irregular rhythm - Routine Abdominal Exam Present: soft, non distended, non tender - Routine Extremities Exam Present: no edema. Absent: cyanosis, clubbing - Routine Skin Exam Present: intact, dry. Absent: erythema - Routine Neurological Exam Present: altered mental status Results - Labs CBC & Chem 7: 02/17/18 04:32 02/17/18 04:32 Microbiology Results: Microbiology 02/13/18 22:11 Peripheral/Iv Start Blood Culture - Preliminary No Growth After 3 Days 02/13/18 22:11 Peripheral/Iv Start Blood Culture - Preliminary No Growth After 3 Days - ABG Interpretation ABG results: 02/15/18 02/15/18 02/16/18 17:28 22:08 09:06 ABG pH 7.275 L 7.359 7.347 L ABG pCO2 97 H* 76 H* 85 H* ABG pO2 90.7 63.3 L 66.2 L ABG HCO3 44.8 H 42.8 H 46.8 H ABG Total CO2 47.7 H 45.1 H 49.4 H ABG O2 Saturation 94.8 L 89.4 L 89.9 L ABG Base Excess 11.9 H 12.7 H 15.8 H 02/16/18 02/16/18 02/17/18 12:09 16:59 08:31 ABG pH 7.344 L 7.322 L 7.153 L* ABG pCO2 83 H* 85 H* 122 H* ABG pO2 93.1 59.6 L 120.5 H ABG HCO3 45.2 H 43.8 H 42.8 H ABG Total CO2 47.7 H 46.4 H 46.6 H ABG O2 Saturation 96.1 86.2 L 96.6 ABG Base Excess 14.2 H 12.8 H 7.8 H Assessment and Plan Assessment and Plan: Comfort Care -Family declined intubation and decided to go comfort care Problem List Delirium -Hypercapnia vs. Hypoxia -re-order UA and CXR -No source of infection currently suspected-->initial UA, CXR, resp viral panel , procal, CRP, all negative, no WBC count elevation -Electrolytes stable, TSH wnls, trop neg, -Over the course of the yesterday, the patient became increasingly more agitated and refused to wear her oxygen resulting in pronounced hypoxia. -Using Haldol first and if need be, ativan PRN -Monitor respiratory function closely -Can consider CT head if no improvement with improvement of resp status Hypercapnic Hypoxic Respiratory failure -Unclear etiology, possible worsening of post polio syndrome?, unclear acute vs. chronic picture in terms of hypoxia -CT/CXR on admission not overly consistent with pneumonia - no WBC elevation, procal/CRP negative, minimal sx's reported by pt, afebrile. Continue to monitor. Antibiotics not warranted at this time. -COPD exacerbation not consistent with clinical picture -Cont. with bipap, repeat ABGs, will consult Pulm COPD -Stable, not suspecting exacerbation Hypothyroid -Cont. home levo Ppx -SCDs - Physician Narrative Narrative: Date: 02/17/18 Time: 1437 Hospital Course Summary Disclaimer: The visit summary below is not to be considered part of the above Progress Note. Hospital Course: 02/14/18 Pt stable, likely close to baseline. Pt requiring minimal O2 and likely has chronic need. Little to no evidence for infection so will stop all abx and do not suspect copd exacerbation so will stop steroids. 02/15/18 Increased agitation with increased hypoxia as patient refusing to wear oxygen. Ativan and Haldol PRN with improvement of behaviors though resulted in increased sedation. Consult psych for evaluation and treatment recommendations. Initiate seroquel 12.5mg QHS. Monitor closely for increased sedation. Will avoid ativan and/or Haldol with Seroquel. Recheck labs in AM. Obtain ABG now given increased behaviors as suspect delirium. 02/16/18 Pt had increased agitation yesterday evening and had to be transferred to icu, pt was not tolerating NC or bipap and hypoxia and hypercapnia was getting worse. Pt had to be get chemical restraints with haldol and ativan and then bipap was used. Discussed case with daughter in law and she wanted everything done including intubation. Will consult pulm today since not making much progress with pulm status. 02/17/18 Pt's respiratory status continued to get worse as bipap was ineffective, pt's family declined intubation and wanted to pursue comfort care. Discussed case with and he noted that intubation was likely not ideal as this is a chronic progression and it will be very difficult to wean vent off. Discussed prognosis and case with pt's family and they want to go comfort care.
[2018-02-17 19:51] VITALS: TEMP 96.6
[2018-02-18] MEDS: ALBUTEROL/IPRATROPIUM 2.5mg-0.5mg/3ml NEB AEROSOL SCH ×2 (04:31→07:23)
[2018-02-18] MEDS: MORPHINE SULFATE 4mg INJECTION IVP PRN (06:06)
[2018-02-18 06:23] VITALS: BP 150/69; PULSE 99
[2018-02-18 08:09] VITALS: RESP 21; O2SAT 33
--- NOTE | 2018-05-09 21:50 | Discharge Summary ---
Discharge Information Date of admission: 02/13/18 18:59 Attending Physician: Rut Solorio MD Primary care physician: Bakari Prescott DO Consults: 02/15/18 12:42 Doctor [Physician Consult] [CONS] Routine Consulting Provider: Deuce Biggs Reason For Exam: CONTINUED CARE Ordering Provider has Notified Metal Furrer: Yes 02/15/18 15:35 Physician Consult [CONS] Routine Consulting Provider: Domonique Awan Reason For Exam: psychosis vs. delerium Ordering Provider has Notified Metal Furrer: No 02/16/18 10:55 Physician Consult [CONS] Routine Consulting Provider: Mason Love Reason For Exam: hypercapnia, hypoxia Ordering Provider has Notified Metal Furrer: Yes Respiratory Failure - Laboratory Labs: 02/17/18 04:32 02/17/18 04:32 - Microbiology Microbiology 02/13/18 22:11 Peripheral/Iv Start Blood Culture - Final No Growth After 5 Days 02/13/18 22:11 Peripheral/Iv Start Blood Culture - Final No Growth After 5 Days History of Present Illness HPI: was seen this am and noted that she feels fine and would like to be discharged back to facility. Pt is alert and oriented. Pt notes she just has some congestion from a cold likely but otherwise feels okay. Reports some mild sob but denies any cp, n/v/d, f/c. Reports she has an eye apt tomorrow that she really wants to make it too. Pt denies any cough and does not believe she has a pna. HPI From overnight: Jessica is an 87 y/o female w/ h/o CHF, COPD, Post-polio syndrome who presents to ER at [facility] brought by EMS from [place] w/ cc of SOA over the past couple of days and generalized weakness. Patient denies f/c/s, chest pain, FAUSTIN, dysphagia(thought does have meat cut up to eat it) and denies change in bowel/bladder function. She states she has been gradually more SOA over the past few days and has found it more difficult to transfer d/t overall weakness. [facility] so EMS placed 2 L/min O2 per NC and sats are now in the 90s. In ER patient had CXR that per prelim report was generally unchanged from prior CXR, and she received a DuoNeb and SoluMedrol 125mg IV x one and per ER provider 's report she is resting more comfortably. CT scan chest/angio showed no PE, however showed RLL infiltrates and BEBE infiltrates vs. atelectasis. WBC is 8.0 w/ 84% neutrophils and troponin is 0.025; the pro-BNP = 1462, BUN/Cr = 17/0.5. TCO2 on BMP =40. Patient to be admitted to the Hospitalist service for further evaluation and treatment. Vancomycin and Zosyn ordered Hospital Course This is a general summary of the patient's hospital course. For more details refer to the complete medical record. was admitted d/t worsening respiratory status thought to be due to a viral illness. Pt initially seemed to be stable but than started deteriorating quickly. Pt developed delirium and her respiratory status worsened. The etiology was not clear but it was thougt it was a combination of post polio syndrome, severe kyphosis causing restrictive disease and underlying copd disease. Pt did not tolerate bipap and discussion about intubation was had with family. Pulmonary service was consulted and they noted that pt was not a good candidate for intubation as it would be difficult to wean off. Family made decision to pursue comfort care and pt that same evening. Hospital course: 02/14/18 Pt stable, likely close to baseline. Pt requiring minimal O2 and likely has chronic need. Little to no evidence for infection so will stop all abx and do not suspect copd exacerbation so will stop steroids. 02/15/18 Increased agitation with increased hypoxia as patient refusing to wear oxygen. Ativan and Haldol PRN with improvement of behaviors though resulted in increased sedation. Consult psych for evaluation and treatment recommendations. Initiate seroquel 12.5mg QHS. Monitor closely for increased sedation. Will avoid ativan and/or Haldol with Seroquel. Recheck labs in AM. Obtain ABG now given increased behaviors as suspect delirium. 02/16/18 Pt had increased agitation yesterday evening and had to be transferred to icu, pt was not tolerating NC or bipap and hypoxia and hypercapnia was getting worse. Pt had to be get chemical restraints with haldol and ativan and then bipap was used. Discussed case with daughter in law and she wanted everything done including intubation. Will consult pulm today since not making much progress with pulm status. 02/17/18 Pt's respiratory status continued to get worse as bipap was ineffective, pt's family declined intubation and wanted to pursue comfort care. Discussed case with and he noted that intubation was likely not ideal as this is a chronic progression and it will be very difficult to wean vent off. Discussed prognosis and case with pt's family and they want to go comfort care. External Problems Reviewed(CCD)?: Yes Discharge Plan - Med Rec/Dispo [place] Instructions: Shortness of Breath (GEN) Prescriptions: No Action Albuterol HFA Inhaler [Ventolin Hfa 90 mcg/actuation] 2 puff ORAL INH Q6H PRN PRN Reason: Shortness Of Air/Wheezing Fluticasone/Salmeterol 250/50 [Advair 250-50 Diskus] 1 puff INH BID PRN PRN Reason: Shortness Of Air/Wheezing Simvastatin [Zocor] 40 mg PO HS Docusate Sodium [Colace] 100 mg PO DAILY cap Acetaminophen [Tylenol] 650 mg PO Q5H PRN tab PRN Reason: Discomfort Flecainide [Tambocor] 100 mg PO BID Apremilast [Otezla] 30 mg PO BID guaiFENesin [Mucinex] 600 mg PO BID Levothyroxine Tab [Synthroid] 12.5 mcg PO ACB Sennosides [Senna Lax] 8.6 mg PO BID PRN tab PRN Reason: Constipation - Disposition 20 - Dismissal Complete Discharge Instructions are:: Complete
== END 2018-02-18 07:50 | disposition expired | DRG 190 ==
LOC: ED 16:30 → EDHOLD 18:59 → SUATTDRO 18:59 → MED 19:55 → CCU 02-15 20:45
PROVIDERS: ADMIT Internal Medicine; ATTEND Internal Medicine